=== PATIENT | female | born 1965 | race Caucasian/White ===

== ENCOUNTER 2024-08-26 14:27 | Inpatient (IN) | payer MEDICAID, OTHER ==
[~2024-08-26] VITALS: Ht 167.6 cm; Wt 113.6 kg
[~2024-08-26 14:27] MED LIST: ARIP2TAB PO; ASPI81CH59 PO; LIDO1.8P TOP; METO25TA93 PO; ROSU20TA14 PO; SERT-206 PO
--- NOTE | 2024-08-26 14:35 | ED.PDOC ---
HPI Comments 59 Y F, BIBA with PMHX of HTN, hypotension, [place] and SHX PTCA presents to the ED with CC of chest pain. Per EMS patient has been experiencing chest pain x3 days, with associated symptoms of epigastric pain and nausea. Patient states that nausea has been intermittent and has since subsided. Patient denies any tobacco usage, ETOH, and illicit drugs. Patient denies Patient denies fever, chills, diarrhea, or vomiting. z + Time Seen by MD: 14:30 Reviewed Notes: Nurses Notes, Medications, Allergies Allergies: Coded Allergies: NO KNOWN ALLERGIES (Unverified , 08/26/24) Information Source: Patient, Emergency Med Personnel Mode of Arrival: EMS Severity: Mild Timing: Days Duration: Since onset Prehospital treatment: 12 Lead EKG, Glass Bulb Machine Adjuster Location: Substernal Radiation: No Radiation Cardiac Risk Factors: HTN PE Risk Factors: None History of: [place] Associated Signs and Symptoms: SOB Past Medical History PAST MEDICAL HISTORY: HTN, Hypotension, [place] Surgical History: PTCA LEAD DEVELOPER History: Denies all LEAD DEVELOPER Hx Family History Family History: Unknown Social History Smoker: Non-Smoker Alcohol: Denies ETOH Use Drugs: Denies Drug Use Lives In: Home Constitutional: denies: chills, diaphoresis, fatigue, fever, malaise, sweats, weakness, others EENTM: denies: blurred vision, double vision, ear bleeding, ear discharge, ear drainage, ear pain, ear ringing, eye pain, eye redness, hearing loss, mouth pain, mouth swelling, nasal discharge, nose bleeding, nose congestion, nose pain, photophobia, tearing, throat pain, throat swelling, voice changes, others Respiratory: denies: cough, hemoptysis, orthopnea, SOB at rest, shortness of breath, SOB with excertion, stridor, wheezing, others Cardiovascular: reports: chest pain; denies: dizzy spells, diaphoresis, Dyspnea on exertion, edema, irregular heart beat, left arm pain, lightheadedness, palpitations, PND, syncope, others Gastrointestinal: reports: abdominal pain, nausea; denies: abdomen distended, blood streaked bowels, constipated, diarrhea, dysphagia, difficulty swallowing, hematemesis, melena, poor appetite, poor fluid intake, rectal bleeding, rectal pain, vomiting, others Genitourinary: denies: abnormal vagina bleeding, burning, dyspareunia, dysuria, flank pain, frequency, hematuria, incontinence, pain, , vagina discharge, urgency, others Neurological: denies: dizziness, fainting, headache, left sided numbness, left sided weakness, numbness, paresthesia, pre-existing deficit, right sided numbness, right sided weakness, seizure, speech problems, tingling, tremors, weakness, others Musculoskeletal: denies: back pain, gout, joint pain, joint swelling, muscle pain, muscle stiffness, neck pain, others Integumetry: denies: bruises, change in color, change in hair/nails, dryness, laceration, lesions, lumps, rash, wounds, others Allergic/Immunocompromised: denies: Difficulty Healing, Frequent Infections, Hives, Itching, others Hematologic/Lymphatic: denies: anemia, blood clots, easy bleeding, easy bruising, swollen glands, others Endocrine: denies: excessive hunger, excessive sweating, excessive thirst, excessive urination, flushing, intolerance to cold, intolerance to heat, unexplained weight gain, unexplained weight loss, others Psychiatric: denies: anxiety, bipolar disorder, depression, hopeless, panic disorder, schizophrenia, sleepless, suicidal, others All Other Systems: Reviewed and Negative Physical Exam General Appearance: Moderate Distress, Normal HEENT: Normal ENT Inspection, Pharynx Normal, TMs Normal Neck: Full Range of Motion, Non-Tender, Normal, Normal Inspection Respiratory: Chest Non-Tender, Lungs Clear, No Accessory Muscle Use, No Respiratory Distress, Normal Breath Sounds Cardiovascular: No Edema, No JVD, No Murmur, No Gallop, Normal Peripheral Pulses, Regular Rate/Rhythm Breast Exam: Deferred Gastrointestinal: No Organomegaly, Non Tender, No Pulsatile Mass, Normal Bowel Sounds, Soft Genitalia: Deferred Pelvic: Deferred Rectal: Deferred Extremities: No calf tenderness, Normal capillary refill, Normal inspection, Normal range of motion, Non-tender, No pedal edema Musculoskeletal : Apperance: Normal Neurologic: Alert, american board certified orthotist II-XII nml as Tested, No Motor Deficits, Normal Affect, Normal Mood, No Sensory Deficits Cerebellar Function: NOT DONE Reflexes: NOT DONE Skin: Dry, Normal Color, Warm Lymphatic: No Adenopathy Was a procedure done? Was a procedure done?: No CP Differential Dx Differential Diagnosis: A-fib, A-Flutter, Angina, Anxiety / Panic Attack, Atrial Dysrhythmia, Electrolyte Disorder, Hyperventilation, [place] Differential Diagnosis: Costochondritis X-Ray, Labs, Meds, VS Vital Signs Date Time Temp Pulse Resp B/P (MAP) Pulse Ox O2 Delivery O2 Flow Rate FiO2 08/26/24 16:02 100 08/26/24 14:30 98.7 89 14 119/71 (87) 94 08/26/24 14:28 101 Lab Test 08/26/24 14:40 Range/Units White Blood Count 8.0 4.4-10.8 10^3/uL Red Blood Count 5.25 H 4.0-5.20 10^6/uL Hemoglobin 17.0 H 12.2-16.2 g/dL Hematocrit 49.7 H 36.0-46.0 % Mean Corpuscular Volume 94.8 80.0-100.0 fL Mean Corpuscular Hemoglobin 32.4 H 28.0-32.0 pg Mean Corpuscular Hemoglobin Concent 34.1 32.0-36.0 g/dL Red Cell Distribution Width 12.7 11.8-14.3 % Platelet Count 220 140-450 10^3/uL Mean Platelet Volume 9.3 6.9-10.8 fL Neutrophils (%) (Auto) 72.1 37.0-80.0 % Lymphocytes (%) (Auto) 20.1 10.0-50.0 % Monocytes (%) (Auto) 6.7 0.0-12.0 % Eosinophils (%) (Auto) 0.6 0.0-7.0 % Basophils (%) (Auto) 0.5 0.0-2.0 % Neutrophils # (Auto) 5.8 1.6-8.6 10 ^3/uL Lymphocytes # (Auto) 1.6 0.4-5.4 10 ^3/uL Monocytes # (Auto) 0.5 0-1.3 10 ^3/uL Eosinophils # (Auto) 0.1 0-0.8 10 ^3/uL Basophils # (Auto) 0 0-0.2 10 ^3/uL Nucleated Red Blood Cells 0.2 % Sodium Level 142 136-145 mmol/L Potassium Level 4.3 3.5-5.1 mmol/L Chloride Level 105 98-107 mmol/L Carbon Dioxide Level 25 20-31 mmol/L Anion Gap 12 5-15 Blood Urea Nitrogen 13 9-23 mg/dL Creatinine 0.85 0.550-1.02 mg/dL Glomerular Filtration Rate Calc 78 >90 mL/min BUN/Creatinine Ratio 15.3 10.0-20.0 Serum Glucose 110 H 74-106 mg/dL Calcium Level 10.0 8.7-10.4 mg/dL Total Bilirubin 0.9 0.2-1.0 mg/dL Troponin I High Sensitivity < 3 L </=34 ng/L Lipase 31 12-53 U/L Patient alert. Complaining of abdominal pain. Vitals stable. Answering all questions. Cardiac marker within normal limits. WBC within normal limits. Hemoglobin elevated. Possible dehydration. Establish intravenous access. Was given fluids. Reviewed her previous history. EKG reviewed does not show any acute changes. Explained to the patient. Continue cardiac monitoring. HIDA scan. [place] [address] Ph: [phone] DIAGNOSTIC IMAGING Diagnostic Imaging Report : [id number] Signed PATIENT: Jackie Givens ACCT: [id number] UNIT: [id number] : 1965 LOC: ER ROOM / BED: / AGE / SEX: 59 / F ADM STATUS: REG ER SERVICE 1532 ORDERING PHYSICIAN: LEX BRAGA MD PROCEDURE(s): GBUS - GALLBLADDER REASON: stonevssludge ORDER NUMBER(s): [id number], ACCESSION NUMBER(s): [id number] ULTRASOUND ABDOMEN LIMITED INDICATION: stonevssludge TECHNIQUE: Multiple real-time sonographic images of the abdomen were obtained. COMPARISON: None FINDINGS: The visualized liver parenchyma appears echogenic. . The liver measures 16.7 cm. No discrete hepatic lesion or intrahepatic biliary ductal dilatation is identified. There are small mobile gallstones within the gallbladder. There is no significant gallbladder wall thickening or pericholecystic fluid. The common biliary duct measures 6 mm. The right kidney measures 11.0 cm length. No sonographic evidence of nephrolithiasis or hydronephrosis. Visualized portions of the pancreas appears within normal limits. IMPRESSION: 1. Hepatic steatosis. 2. Cholelithiasis. HS:Y ATED BY: BARRY ALLEN MD DICTATED DATE/TIME: 08/26/241652 SIGNED BY: BARRY ALLEN MD SIGNED DATE/TIME: 08/26/241652 CC: Time of 1ST Reevaluation: 15:30 Reevaluation 1ST: Unchanged Patient Education/Counseling: Diagnosis, Treatment Family Education/Counseling: No Family Present Departure 1 Departure Time of Disposition: 15:31 Impression: Primary Impression: Acute abdominal pain Disposition: ADMITTED INPATIENT Admit to: Med Surg Condition: Guarded Critical Care Note Critical Care Time?: No Stability Stability form required: No Heart Score Heart Score: Heart Score Response (Comments) Value History Slightly Suspicious 0 EKG Normal 0 Age 45-64 1 Risk Factors 1 or 2 risk factors 1 Troponin Normal limit 0 Total 2 I personally scribed for LEX BRAGA MD ([email or web address]) on 08/26/24 at 14:35. Electronically submitted by Pete Vail ([email or web address]). I personally scribed for LEX BRAGA MD ([email or web address]) on 08/26/24 at 14:57. Electronically submitted by Pete Vail ([email or web address]). I personally scribed for LEX BRAGA MD ([email or web address]) on 08/26/24 at 15:05. Electronically submitted by Pete Vail ([email or web address]). I personally scribed for LEX BRAGA MD ([email or web address]) on 08/26/24 at 15:07. Electronically submitted by Pete Vail ([email or web address]). I personally scribed for LEX BRAGA MD ([email or web address]) on 08/26/24 at 15:18. Electronically submitted by Pete Vail ([email or web address]). I personally scribed for LEX BRAGA MD ([email or web address]) on 08/26/24 at 17:00. Electronically submitted by Pete Vail ([email or web address]). LEX BRAGA MD Aug 26, 2024 14:35
[2024-08-26 15:06] LABS: Basophils # (auto) 0 10 ^3/uL (0-0.2); Basophils % (auto) 0.5 % (0.0-2.0); Eosinophils # (auto) 0.1 10 ^3/uL (0-0.8); Eosinophils % (auto) 0.6 % (0.0-7.0); Hematocrit 49.7 % (36.0-46.0); Lymphocytes # (auto) 1.6 10 ^3/uL (0.4-5.4); Lymphocytes % (auto) 20.1 % (10.0-50.0); Mean Corpuscular Hemoglobin 32.4 pg (28.0-32.0); Mean Corpuscular Hgb Conc. 34.1 g/dL (32.0-36.0); Mean Corpuscular Volume 94.8 fL (80.0-100.0); Monocytes # (auto) 0.5 10 ^3/uL (0-1.3); Monocytes % (auto) 6.7 % (0.0-12.0); Neutrophils # (auto) 5.8 10 ^3/uL (1.6-8.6); Neutrophils % (auto) 72.1 % (37.0-80.0); Nucleated Red Blood Cells % 0.2 %; Platelet Count (auto) 220 10^3/uL (140-450); Red Blood Cells 5.25 10^6/uL (4.0-5.20); Red Cell Distribution Width 12.7 % (11.8-14.3)
[2024-08-26 15:11] LABS: Chloride 105 mmol/L (98-107); Potassium 4.3 mmol/L (3.5-5.1); Sodium 142 mmol/L (136-145)
[2024-08-26 15:12] LABS: Anion Gap 12 (5-15); Carbon Dioxide 25 mmol/L (20-31)
[2024-08-26 15:17] LABS: BUN/Creatinine Ratio 15.3 (10.0-20.0); Blood Urea Nitrogen 13 mg/dL (9-23)
[2024-08-26 15:18] LABS: Glucose 110 mg/dL (74-106)
[2024-08-26 15:36] LABS: Bilirubin, Total 0.9 mg/dL (0.2-1.0)
--- NOTE | 2024-08-26 16:54 | DVH ---
ULTRASOUND ABDOMEN LIMITED INDICATION: stonevssludge TECHNIQUE: Multiple real-time sonographic images of the abdomen were obtained. COMPARISON: None FINDINGS: The visualized liver parenchyma appears echogenic. . The liver measures 16.7 cm. No discrete hep atic lesion or intrahepatic biliary ductal dilatation is identified. There are small mobile gallstones within the gallbladder. There is no significant gallbladder wall th ickening or pericholecystic fluid. The common biliary duct measures 6 mm. The right kidney measures 11.0 cm length. No sonographic evidence of nephrolithiasis or hydronephro sis. Visualized portions of the pancreas appears within normal limits. IMPRESSION: 1. Hepatic steatosis. 2. Cholelithiasis. HS:Y
[2024-08-26] MEDS ORDERED: NITROGLYCERIN 0.4 MG SL TAB SL PRN (18:30)
[2024-08-26] MEDS ORDERED: MAALOX PLUS or MAALOX 30 ML PO PRN (18:30)
[2024-08-26] MEDS ORDERED: TEMAZEPAM 15 MG CAP PO PRN (18:30)
[2024-08-26] MEDS ORDERED: MORPHINE SULFATE INJ 2 MG/ml SYRG IV PRN ×2 (18:30)
[2024-08-26] MEDS ORDERED: LORazepam 0.5 MG TAB PO PRN (18:30)
[2024-08-26] MEDS ORDERED: HYDROcodone-ACET 5/325MG TAB PO PRN (18:30)
[2024-08-26] MEDS ORDERED: DOCUSATE SOD 100 MG CAP PO PRN (18:30)
--- NOTE | 2024-08-26 18:38 | DVHHP2 ---
History of Present Illness Reason for Visit: Chest pain History of Present Illness 59-year-old morbidly obese patient with a past medical history hypertension hypotension VT and status post PCTA comes to the ED with complaints of chest pain patient states he has been having chest pain for the past 3 days associated with nausea patient was evaluated in the ED and recommended that the patient be admitted for further evaluation and management and follow with the acute chest pain protocol patient has also stated to have right upper quadrant pain patient completed an ultrasound in the ED Cardiovascular: CAD, HTN Review of Systems Constitutional: Yes: Weakness; No: Fever, Chills, Sweats, Malaise, Other Eyes: No: Pain, Vision change, Conjunctivae inflammation, Eyelid inflammation, Other, Redness ENT: No: Ear pain, Ear discharge, Nose pain, Nose discharge, Nose congestion, Mouth pain, Mouth swelling, Throat pain, Throat swelling, Other Respiratory: No: Cough, Dry, Shortness of breath, SOB with excertion, Wheezing, Hemoptysis, Pleuritic Pain, Sputum, Wheezing, Other Cardiovascular: Chest Pain, Palpitations; No: Orthopnea, Paroxysmal Noc. Dyspnea, Edema, Lt Headedness, Other Gastrointestinal: Nausea, Vomiting, Abdominal Pain; No: Diarrhea, Constipation, Melena, Hematochezia, Other Genitourinary: No Dysuria, No Frequency, No Incontinence, No Hematuria, No Retention, No Other Musculoskeletal: No: other, neck pain, shoulder pain, arm pain, back pain, hand pain, leg pain, foot pain Skin: No: Rash, Lesions, Jaundice, Bruising, Other Neurological: No: Weakness, Numbness, Incoordination, Change in speech, Confusion, Seizures, Other Allergies: Coded Allergies: NO KNOWN ALLERGIES (Unverified , 08/26/24) Exam Vital Signs Vital Signs Date Time Temp Pulse Resp B/P (MAP) Pulse Ox O2 Delivery O2 Flow Rate FiO2 08/26/24 16:02 100 08/26/24 14:30 98.7 14 119/71 (87) 94 General Appearance: Alert, Oriented X3, Cooperative, mild distress HEENT: Atraumatic, PERRLA, EOMI Respiratory: Clear to auscultation, Normal air movement Cardiovascular: Regular rate, Normal S1, Normal S2 Abdominal: Normal bowel sounds, No tenderness Extremities: No clubbing, No cyanosis, No edema Skin: No rashes, No breakdown, No significant lesion Neuro: Normal gait, Normal speech Psych/Mental Status: Mood NL Labs/Xrays Labs Test 08/26/24 14:40 Range/Units White Blood Count 8.0 4.4-10.8 10^3/uL Red Blood Count 5.25 H 4.0-5.20 10^6/uL Hemoglobin 17.0 H 12.2-16.2 g/dL Hematocrit 49.7 H 36.0-46.0 % Mean Corpuscular Volume 94.8 80.0-100.0 fL Mean Corpuscular Hemoglobin 32.4 H 28.0-32.0 pg Mean Corpuscular Hemoglobin Concent 34.1 32.0-36.0 g/dL Red Cell Distribution Width 12.7 11.8-14.3 % Platelet Count 220 140-450 10^3/uL Mean Platelet Volume 9.3 6.9-10.8 fL Neutrophils (%) (Auto) 72.1 37.0-80.0 % Lymphocytes (%) (Auto) 20.1 10.0-50.0 % Monocytes (%) (Auto) 6.7 0.0-12.0 % Eosinophils (%) (Auto) 0.6 0.0-7.0 % Basophils (%) (Auto) 0.5 0.0-2.0 % Neutrophils # (Auto) 5.8 1.6-8.6 10 ^3/uL Lymphocytes # (Auto) 1.6 0.4-5.4 10 ^3/uL Monocytes # (Auto) 0.5 0-1.3 10 ^3/uL Eosinophils # (Auto) 0.1 0-0.8 10 ^3/uL Basophils # (Auto) 0 0-0.2 10 ^3/uL Nucleated Red Blood Cells 0.2 % Sodium Level 142 136-145 mmol/L Potassium Level 4.3 3.5-5.1 mmol/L Chloride Level 105 98-107 mmol/L Carbon Dioxide Level 25 20-31 mmol/L Anion Gap 12 5-15 Blood Urea Nitrogen 13 9-23 mg/dL Creatinine 0.85 0.550-1.02 mg/dL Glomerular Filtration Rate Calc 78 >90 mL/min BUN/Creatinine Ratio 15.3 10.0-20.0 Serum Glucose 110 H 74-106 mg/dL Calcium Level 10.0 8.7-10.4 mg/dL Total Bilirubin 0.9 0.2-1.0 mg/dL Troponin I High Sensitivity < 3 L </=34 ng/L Lipase 31 12-53 U/L Assessment/Plan Assessment/Plan Admit to [facility] Stated chest pain suspected related to right upper quadrant pain Right upper quadrant plain suspected due to cholelithiasis Ultrasound was completed in the ED showing hepatic steatosis as well as cholelithiasis We will continue to trend tropes so far currently negative P.r.n. medication for pain management Surgical evaluation for possible coli Due to cardiac history we will continue with chest pain protocol IV hydration IV antibiotics for abdominal infection coverage Plan discussed with: Patient My Orders Orders - BELLO FONTENOT MD Procedure Category Date Status Time Admit ADMIT 08/26/24 Transmitted 18:23 Code Status CODE 08/26/24 Transmitted 18:23 Vital Signs [facility] 08/26/24 Transmitted 18:23 Review Orders With [facility] 08/26/24 Transmitted Adm. 18:23 Regular Diet DIET 08/26/24 Transmitted Dinner Sodium Chloride 0.9% [facility] 08/26/24 Transmitted 18:30 Lorazepam Tablet [facility] 08/26/24 Transmitted (Ativan Tablet) 18:30 Alum & Mag PHA 08/26/24 Transmitted Hydrox-Simethicone 18:30 Docusate Sodium [facility] 08/26/24 Transmitted Capsule (Colace 18:30 Acetaminophen Tablet [facility] 08/26/24 Transmitted (Tylenol Tablet) 18:30 Temazepam (Restoril) PHA 08/26/24 Transmitted 18:30 Notify Of Changes [facility] 08/26/24 Transmitted From Base 18:23 Advance Directive [facility] 08/26/24 Transmitted 18:23 Basic Metabolic Panel LAB 08/27/24 Verified 04:00 Urinalysis LAB 08/26/24 Transmitted 18:23 Complete Blood Count LAB 08/27/24 Verified 04:00 Patient Condition ORDERS 08/26/24 Transmitted 18:[address] [facility] 08/26/24 Transmitted 18:23 Hydrocodone-Acet [facility] 08/26/24 Transmitted 5/325mg Tab ([place] 18:30 Ondansetron Hcl [facility] 08/26/24 Transmitted (Zofran) 18:30 Morphine 2mg Iv Q4hprn PHA 08/26/24 Transmitted 18:30 Nitroglycerin PHA 08/26/24 Transmitted Sublingual (Ntrostat 18:30 Morphine Sulfate PHA 08/26/24 Transmitted Injection 18:30 Stat Ekg For Chest [facility] 08/26/24 Transmitted Pain 18:23 Notify Md Of Changes [facility] 08/26/24 Transmitted From Base 18:23 Farm Equipment Service Technician For [facility] 08/26/24 Transmitted 24 Hours 18:23 Emergency Dysrhythmia [facility] 08/26/24 Transmitted Protocol 18:23 Rhythm Strips Once [facility] 08/26/24 Transmitted Every Shift 18:23 Oxygen By Nasal RT 08/26/24 Transmitted Cannula 18:23 Problem List: (1) Acute abdominal pain Date of Service: Aug 26, 2024 Billing Provider: BELLO FONTENOT MD Common Visit Codes: [id number] INP/OBS CARE (HIGH) BELLO FONTENOT MD Aug 26, 2024 18:38
[2024-08-27] VITALS (10 sets, daily range): BP systolic 99–117; BP diastolic 60–77; PULSE 64–98; RESP 16–18; TEMP 97.5–98.3; O2SAT 92–99
[2024-08-27 07:02] LABS: Basophils # (auto) 0 10 ^3/uL (0-0.2); Basophils % (auto) 0.5 % (0.0-2.0); Eosinophils # (auto) 0.1 10 ^3/uL (0-0.8); Hematocrit 46.8 % (36.0-46.0); Hemoglobin 16.3 g/dL (12.2-16.2); Lymphocytes # (auto) 1.6 10 ^3/uL (0.4-5.4); Lymphocytes % (auto) 20.4 % (10.0-50.0); Mean Corpuscular Hemoglobin 32.2 pg (28.0-32.0); Mean Corpuscular Hgb Conc. 34.8 g/dL (32.0-36.0); Mean Corpuscular Volume 92.5 fL (80.0-100.0); Monocytes # (auto) 0.7 10 ^3/uL (0-1.3); Monocytes % (auto) 8.5 % (0.0-12.0); Neutrophils # (auto) 5.5 10 ^3/uL (1.6-8.6); Neutrophils % (auto) 69.6 % (37.0-80.0); Nucleated Red Blood Cells % 0.1 %; Platelet Count (auto) 219 10^3/uL (140-450); Red Blood Cells 5.05 10^6/uL (4.0-5.20); Red Cell Distribution Width 12.8 % (11.8-14.3); White Blood Cell 7.8 10^3/uL (4.4-10.8)
[2024-08-27 07:22] LABS: Anion Gap 6 (5-15); Calcium 9.8 mg/dL (8.7-10.4); Carbon Dioxide 27 mmol/L (20-31); Potassium 3.7 mmol/L (3.5-5.1); Sodium 141 mmol/L (136-145)
[2024-08-27 07:27] LABS: BUN/Creatinine Ratio 21.6 (10.0-20.0); Blood Urea Nitrogen 19 mg/dL (9-23); Glucose 104 mg/dL (74-106)
--- NOTE | 2024-08-27 07:31 | ECG ---
[facility] Test Date: 2024-08-26 Test Time: 16:02:48 Pat Name: MILTON JIMENEZ Department: ER Room: [facility] Gender: F Felt Carbonizer: JENNIFER : 1965 Requested By: LEX BRAGA Order Number: [id number] Reading MD: Oli Thompson Measurements Intervals [place] Rate: 100 P: 70 MO: 151 QRS: 22 QRSD: 92 T: 74 QT: 341 QTc: 440 Interpretive Statements Sinus tachycardia Abnormal R-wave progression, early transition Minimal ST depression, anterolateral leads Electronically Signed On 08-29-2024 12:39:35 PST by Oli Thompson Please click the below link to view image of tracing.
[2024-08-27 07:32] LABS: Chloride 108 mmol/L (98-107)
[2024-08-27] MEDS: SODIUM CHLORIDE 0.9% 1,000 ML IV SCH (11:10)
[2024-08-27] MEDS: ONDANSETRON HCL 4 MG/2 ML VIAL IV PRN (11:58)
[2024-08-27] MEDS: ACETAMINOPHEN 325 MG TAB PO PRN (11:59)
--- NOTE | 2024-08-27 15:07 | DVHPN2 ---
Assessment/Plan Assessment/Plan Progress note Subjective 1-year-old female admitted for chest pain, found to have cholelithiasis and right upper quadrant pain possibly related. Objective Physical exam Alert, oriented x3 PERRLA Obese Clear breath sounds bilaterally S1-S2 regular rate and rhythm no murmur Abdomen distended, tender to palpation, no rebound no guarding Moving all four extremities No lower extremity edema Lab Troponin negative Lipase negative Hemoglobin 17 EKG NSR Imaging Right upper quadrant ultrasound with cholelithiasis Assessment and plan Abdominal pain Chest pain likely referred from above Cholelithiasis without cholecystitis Abdominal ultrasound UDS, UA Zofran Advance diet as tolerated IV fluid No antibiotic at this moment Replete electrolytes Diet clear liquid DVT prophylaxis ambulatory Plan discussed with: Patient My Orders Orders - PATTY TABARES MD Procedure Category Date Status Time Initiate Vte MECHE 08/27/24 In Process Prophylaxis 13:48 Urinalysis LAB 08/27/24 Logged 15:02 Drug Screen LAB 08/27/24 Logged 15:02 Sertraline Hcl PHA 08/27/24 Transmitted (Zoloft) 15:15 Sertraline Hcl PHA 08/28/24 Transmitted (Zoloft) 10:00 Aspirin Tablet PHA 08/27/24 Transmitted 15:15 Aspirin Tablet PHA 08/28/24 Transmitted 10:00 Alum & Mag PHA 08/27/24 Transmitted Hydrox-Simethicone 22:00 Date of Service: Aug 27, 2024 Billing Provider: PATTY TABARES MD Common Visit Codes: [id number] INP/OBS CARE(HIGH) PATTY TABARES MD Aug 27, 2024 15:07
--- NOTE | 2024-08-27 15:54 | DVH ---
ULTRASOUND OF THE ABDOMINAL AORTA CLINICAL HISTORY: abdominal pain TECHNIQUE: Transabdominal ultrasound of the abdominal aorta was performed. COMPARISON: None FINDINGS: The proximal abdominal aorta measures 3.0 cm . The mid abdominal aorta measures 0.1 cm and the dista l aorta measures 1.5 cm. The right and left common iliac arteries are not seen on the current ultraso und study. IMPRESSION: 1. There is no sonographic evidence of abdominal aortic aneurysm. HS:Y
--- NOTE | 2024-08-27 16:01 | DVH ---
RENAL ULTRASOUND CLINICAL HISTORY: kidney, bladder, ascites and AA TECHNIQUE: Multiple ultrasound images of the kidneys and bladder were obtained. COMPARISON: None FINDINGS: The right kidney measures 11.7 cm in length. The left kidney measures 11.8 cm. Both kidneys appear ec hogenic compatible with medical renal disease. There is cortical thinning in the right kidney. There is a 7 mm calculus in the midpole of the right kidney. There is no obvious left renal calculus. The re is no hydronephrosis. Bladder appears within normal limits with prevoid volume measuring 98 cc. IMPRESSION: 1. The kidneys appear echogenic compatible with medical renal disease. There is cortical thinning in the right kidney. 2. 7 mm nonobstructive right midpole renal calculus. HS:Y
[2024-08-27] MEDS: SERTRALINE HCL 50 MG TAB PO ONE (17:01)
[2024-08-27] MEDS: ASPirin 81 mg TAB PO ONE (17:02)
[2024-08-27] MEDS: MAALOX PLUS or MAALOX 30 ML PO SCH (21:45)
[2024-08-28] VITALS (7 sets, daily range): BP systolic 100–121; BP diastolic 50–70; PULSE 58–80; RESP 17–21; TEMP 97.7–98.8; O2SAT 92–100
[2024-08-28 06:44] LABS: Alanine Aminotransferase 23 U/L (7-40); Alkaline Phosphatase 88 U/L (46-116); Anion Gap 9 (5-15); BUN/Creatinine Ratio 24.7 (10.0-20.0); Blood Urea Nitrogen 20 mg/dL (9-23); Calcium 9.4 mg/dL (8.7-10.4); Carbon Dioxide 27 mmol/L (20-31); Glucose 97 mg/dL (74-106); Potassium 4.1 mmol/L (3.5-5.1); Sodium 144 mmol/L (136-145)
[2024-08-28 06:45] LABS: Aspartate Aminotransferase 14 U/L (13-40); Bilirubin, Total 0.9 mg/dL (0.2-1.0); Total Protein 6.5 g/dL (5.7-8.2)
[2024-08-28 06:49] LABS: Chloride 108 mmol/L (98-107)
[2024-08-28 06:52] LABS: Basophils # (auto) 0 10 ^3/uL (0-0.2); Basophils % (auto) 0.6 % (0.0-2.0); Eosinophils # (auto) 0.2 10 ^3/uL (0-0.8); Eosinophils % (auto) 3.2 % (0.0-7.0); Hemoglobin 14.9 g/dL (12.2-16.2); Lymphocytes # (auto) 1.5 10 ^3/uL (0.4-5.4); Lymphocytes % (auto) 25.2 % (10.0-50.0); Mean Corpuscular Hemoglobin 32.4 pg (28.0-32.0); Mean Corpuscular Hgb Conc. 34.6 g/dL (32.0-36.0); Mean Corpuscular Volume 93.6 fL (80.0-100.0); Monocytes # (auto) 0.6 10 ^3/uL (0-1.3); Monocytes % (auto) 9.5 % (0.0-12.0); Neutrophils # (auto) 3.8 10 ^3/uL (1.6-8.6); Neutrophils % (auto) 61.5 % (37.0-80.0); Nucleated Red Blood Cells % 0.1 %; Platelet Count (auto) 198 10^3/uL (140-450); Red Cell Distribution Width 12.9 % (11.8-14.3); White Blood Cell 6.1 10^3/uL (4.4-10.8)
[2024-08-28] MEDS: ASPirin 81 mg TAB PO SCH (09:44)
[2024-08-28] MEDS: POLYETHYLENE GLYCOL 17 GM PWDR PO SCH (09:44)
[2024-08-28] MEDS: SERTRALINE HCL 50 MG TAB PO SCH (09:45)
--- NOTE | 2024-08-28 14:22 | DVHPN2 ---
Assessment/Plan Assessment/Plan Progress note Subjective 1-year-old female admitted for chest pain, found to have cholelithiasis and right upper quadrant pain possibly related. Patient seen by me today during rounds Still have abdominal pain, low grade. persistent. No UA, informed patient will need urine sample to rule out UTI. Objective Physical exam Alert, oriented x3 PERRLA Obese Clear breath sounds bilaterally S1-S2 regular rate and rhythm no murmur Abdomen distended, tender to palpation, no rebound no guarding Moving all four extremities No lower extremity edema Lab Troponin negative Lipase negative Hemoglobin 17 EKG NSR Imaging Right upper quadrant ultrasound with cholelithiasis Nonobs nephrolithiasis No AAA, ascites Assessment and plan Abdominal pain Chest pain likely referred from above Cholelithiasis without cholecystitis have not ruled out UTI UDS, UA Zofran pepcid, maalox Advance diet as tolerated IV fluid No antibiotic at this moment Replete electrolytes Diet clear liquid DVT prophylaxis ambulatory Plan discussed with: Patient My Orders Orders - PATTY TABARES MD Procedure Category Date Status Time Urinalysis LAB 08/27/24 Logged 15:02 Drug Screen LAB 08/27/24 Logged 15:02 Sertraline Hcl PHA 08/28/24 In Process (Zoloft) 10:00 Aspirin Tablet PHA 08/28/24 In Process 10:00 Alum & Mag PHA 08/27/24 In Process Hydrox-Simethicone 22:00 Polyethylene Glycol PHA 08/28/24 In Process 17g Powder (Miralax 10:00 Kidney US 08/27/24 Resulted 15:18 AORTA US 08/27/24 Resulted 15:11 Clear Liq Diet DIET 08/28/24 Transmitted Breakfast Date of Service: Aug 28, 2024 Billing Provider: PATTY TABARES MD Common Visit Codes: [id number] INP/OBS CARE(HIGH) PATTY TABARES MD Aug 28, 2024 14:22
[2024-08-28] MEDS: FAMOTIDINE 20 MG TAB PO SCH (22:25)
[2024-08-29 01:00] VITALS: BP 105/60; PULSE 63; RESP 18; TEMP 97.9; O2SAT 94
[2024-08-29 05:00] VITALS: BP 99/51; PULSE 60; RESP 20; TEMP 97.6; O2SAT 95
--- NOTE | 2024-08-29 08:49 | ECG ---
[facility] Test Date: 2024-08-26 Test Time: 14:28:31 Pat Name: MILTON JIMENEZ Department: ER Room: [facility] A Gender: F Is/It Project Manager: JENNIFER : 1965 Requested By: LEX BRAGA Order Number: [id number] Reading MD: Oli Thompson Measurements Intervals [place] Rate: 101 P: 64 HI: 155 QRS: -5 QRSD: 94 T: 49 QT: 361 QTc: 468 Interpretive Statements Sinus tachycardia Low voltage, precordial leads Anteroseptal infarct, old Electronically Signed On 08-29-2024 12:39:08 PST by Oli Thompson Please click the below link to view image of tracing.
[2024-08-29 09:00] VITALS: BP 126/76; PULSE 61; RESP 20; TEMP 97.9; O2SAT 94
[2024-08-29 09:23] LABS: Amphetamine Screen, Urine Neg (NEGATIVE); Barbiturate Scree,Urine Neg (NEGATIVE); Benzodiazephine Screen, Urine Neg (NEGATIVE); Cocaine Screen, Urine Neg (NEGATIVE)
[2024-08-29 09:24] LABS: Cannabinoid Screen, Urine Neg (NEGATIVE); Opiate Scree,Urine Neg (NEGATIVE); Phencyclidine Screen, Urine Neg (NEGATIVE)
[2024-08-29 09:27] LABS: Urine Bacteria FEW /hpf (None Seen); Urine Blood TRACE /uL (Negative); Urine Clarity Clear (Clear); Urine Color Yellow (Yellow); Urine Protein, UAD Negative (Negative); Urine Specific Gravity 1.017 (1.001-1.035); Urine Squamous Epithelial Cell FEW /hpf (<5); Urine Urobilinogen Normal (Negative); Urine WBC 6 /hpf (0 - 5); Urine pH 5.5 (5.0-9.0)
[2024-08-29] MEDS: ONDANSETRON HCL 4 MG/2 ML VIAL IV PRN (09:59)
[2024-08-29] MEDS: IOHEXOL 300 MG/ML 100ML BOTTLE IJ ONE (10:40)
--- NOTE | 2024-08-29 11:18 | DVH ---
Exam: CT CT AB PEL WITH IV CON ONLY History: PAIN TECHNIQUE: A digital commutator tester image was obtained. During the uneventful, intravenous administration of c ontrast material, multislice data acquisition was obtained through the abdomen and pelvis. The data s et was subsequently reconstructed into axial images. Images were reviewed on a work station using a c ombination of axial and multiplanar using a variety of window levels and settings. 100 cc of Omnipaqu e 300 contrast was injected intravenously. All CT scans at this medical facility are performed using dose modulation techniques as appropriate t o a performed exam including the following:Automated exposure control was utilized; adjustment of the MA and/or KV according to patient size; and use of iterative reconstruction technique. Radiation Dose Information: CT Dose: CTDI volume is 24.88 mGy. Dose-length product is 1406.28 mGy*cm Comparison: None FINDINGS: Liver demonstrates diffusely decreased attenuation consistent with hepatic steatosis . There is no s uspicious appearing hepatic lesion. There is a 1.3 cm right midpole renal cyst . There is no evidence of nephrolithiasis or hydronephros is . The gallbladder, pancreas, adrenal glands, and spleen appear within normal limits. There is no evidence of abdominal lymphadenopathy. There is no free fluid or free air. The stomach grossly appears unremarkable. The small and large bowel loops demonstrate normal caliber and appear within normal limits.. The abdominal aorta and IVC appear within normal limits. The bladder appears within normal limits the degree of distention. Uterus appears bulky and mildly h eterogeneous which May relate to fibroid changes. There is no evidence of a pelvic mass or lymphadeno yaw. There is no free fluid collection. Lung bases are clear. There is no acute osseous abnormality. IMPRESSION: 1. There is no acute process in the abdomen and pelvis.. 2. Hepatic steatosis. 3. Bulky and mildly heterogeneous uterus May relate to fibroid changes. 4. 1.3 cm right midpole renal cyst. HS:Y
[2024-08-29 13:00] VITALS: BP 120/67; PULSE 69; RESP 20; TEMP 97.9; O2SAT 96
[2024-08-29 17:00] VITALS: BP 125/71; PULSE 71; RESP 18; TEMP 97.6; O2SAT 98
[2024-08-29 21:00] VITALS: BP 101/50; PULSE 69; RESP 20; TEMP 98.2; O2SAT 95
[2024-08-29] MEDS: METOCLOPRAMIDE HCL 5MG/ml INJ 2ml VIAL IV SCH (22:00)
[2024-08-30 01:00] VITALS: BP 102/59; PULSE 80; RESP 18; TEMP 97.9; O2SAT 96
[2024-08-30] MEDS: GASTROGRAFIN 120 ML SOL ONE (08:49)
[2024-08-30 09:00] VITALS: BP 100/53; PULSE 60; RESP 17; TEMP 97.5; O2SAT 96
--- NOTE | 2024-08-30 11:01 | DVH ---
Procedure: XY SMALL BOWEL SERIES-W GASTROGRA Reason for study/Clinical History: R/O GASTROPARSIS Comparison Study: None available at time of dictation. Technique: Single contrast small bowel series performed. FINDINGS/IMPRESSION: Initial ncr operator view of the abdomen and pelvis appears demonstrates no acute process. Contrast is identified within the colon by 45 minutes. This represents a normal small bowel transit time.
[2024-08-30 13:00] VITALS: BP 116/73; PULSE 75; RESP 20; TEMP 97.8; O2SAT 91
--- NOTE | 2024-08-30 13:55 | DVHPN2 ---
Assessment/Plan Assessment/Plan Progress note Subjective 1-year-old female admitted for chest pain, found to have cholelithiasis and right upper quadrant pain possibly related. Patient seen by me today during rounds switched to reglan, now tolerating oral, will advance diet Objective Physical exam Alert, oriented x3 PERRLA Obese Clear breath sounds bilaterally S1-S2 regular rate and rhythm no murmur Abdomen distended, tender to palpation, no rebound no guarding Moving all four extremities No lower extremity edema Lab Troponin negative Lipase negative Hemoglobin 17 EKG NSR Imaging Right upper quadrant ultrasound with cholelithiasis Nonobs nephrolithiasis No AAA, ascites Assessment and plan Abdominal pain Chest pain likely referred from above Cholelithiasis without cholecystitis have not ruled out UTI UDS, UA Zofran pepcid, maalox Advance diet as tolerated IV fluid No antibiotic at this moment switched zofran to reglan Replete electrolytes Diet soft DVT prophylaxis ambulatory Plan discussed with: Patient My Orders Orders - PATTY TABARES MD Procedure Category Date Status Time Metoclopramide PHA 08/29/24 In Process Injection (Reglan 22:00 Small Bowel Series-W XY 08/30/24 Resulted Gastrogra 08:52 Date of Service: Aug 30, 2024 Billing Provider: PATTY TABARES MD Common Visit Codes: [id number] INP/OBS CARE(HIGH) PATTY TABARES MD Aug 30, 2024 13:55
[2024-08-30 17:00] VITALS: BP 122/66; PULSE 58; RESP 18; TEMP 97.6; O2SAT 93
[2024-08-30 21:00] VITALS: BP 118/62; PULSE 59; RESP 16; TEMP 98; O2SAT 92
[2024-08-31] VITALS (8 sets, daily range): BP systolic 110–135; BP diastolic 55–86; PULSE 50–86; RESP 16–19; TEMP 97.4–98; O2SAT 91–96
--- NOTE | 2024-08-31 15:21 | DVHPN2 ---
Assessment/Plan Assessment/Plan Progress note Subjective 1-year-old female admitted for chest pain, found to have cholelithiasis and right upper quadrant pain possibly related. Patient seen by me today during rounds again complaining of not tolerating oral diet, dysphagia. will consult GI for possible scope Objective Physical exam Alert, oriented x3 PERRLA Obese Clear breath sounds bilaterally S1-S2 regular rate and rhythm no murmur Abdomen distended, tender to palpation, no rebound no guarding Moving all four extremities No lower extremity edema Lab Troponin negative Lipase negative Hemoglobin 17 EKG NSR Imaging Right upper quadrant ultrasound with cholelithiasis Nonobs nephrolithiasis No AAA, ascites Assessment and plan Abdominal pain Chest pain likely referred from above Cholelithiasis without cholecystitis have not ruled out UTI UDS, UA Zofran pepcid, maalox Advance diet as tolerated IV fluid No antibiotic at this moment switched zofran to reglan Replete electrolytes Diet soft DVT prophylaxis ambulatory Plan discussed with: Patient My Orders Orders - PATTY TABARES MD Procedure Category Date Status Time Dietary NOTICE 08/30/24 Transmitted Recommendations 15:43 * [facility] Manager Of Health CONS 08/31/24 Verified 15:19 Date of Service: Aug 31, 2024 Billing Provider: PATTY TABARES MD Common Visit Codes: [id number] INP/OBS CARE(HIGH) PATTY TABARES MD Aug 31, 2024 15:21
[2024-09-01 05:00] VITALS: BP 141/84; PULSE 52; RESP 19; TEMP 97.5; O2SAT 94
[2024-09-01 09:00] VITALS: BP 124/85; PULSE 63; RESP 17; TEMP 97.5; O2SAT 90
[2024-09-01 13:00] VITALS: BP 147/76; PULSE 59; RESP 20; TEMP 97.6; O2SAT 93
[2024-09-01 17:00] VITALS: BP 104/57; PULSE 64; RESP 16; TEMP 92.3; O2SAT 95
--- NOTE | 2024-09-01 19:41 | DVHINCON2 ---
Date of service: Sep 01, [address] Stephany Dean Reason for Consultation Atypical chest pain and dysphagia like symptoms History of Present Illness 59-year-old morbidly obese patient with a past medical history hypertension CT and status post PCTA comes to the ED with complaints of chest pain patient states he has been having chest pain for the past 3 days associated with nausea patient was evaluated in the ED and recommended that the patient be admitted for further evaluation and management and follow with the acute chest pain protocol patient has also stated to have right upper quadrant pain patient completed an ultrasound which was negative I was asked to consult on this patient today for possible endoscopy as she is complaining of some dysphagia like symptoms and she is suspected to have atypical chest pain possibly related to GERD Past Medical History Cardiovascular: CAD, HTN Morbid obesity Past Surgical History PTCA Hernia repair Thyroid mass Back Family History: FH: CT (myocardial infarction) G8 FATHER, Allergies: Coded Allergies: NO KNOWN ALLERGIES (Unverified , 08/26/24) Home Meds Reported Medications Lidocaine (Ztlido) 1.8 % Pad, 1 PAD TOP DAILY for 30 Days, #30 08/27/24 Rosuvastatin Calcium (Crestor) 20 Mg Tab, 1 TAB PO DAILY for 30 Days, #30 08/27/24 Aspirin (Aspirin Low Dose) 81 Mg Chw, 1 TAB PO DAILY for 30 Days, #30 08/27/24 Aripiprazole (Abilify) 2 Mg Tab, 1 TAB PO DAILY for 30 Days, #30 08/27/24 Sertraline Hcl (Sertraline Hcl) 50 Mg Tab, 1 TAB PO DAILY for 30 Days, #30 08/27/24 Metoprolol Succinate (Metoprolol Succinate Er) 25 Mg Tab, 1 TAB PO DAILY for 30 Days, #30 08/27/24 Vital Signs Vital Signs Date Time Temp Pulse Resp B/P (MAP) Pulse Ox O2 Delivery O2 Flow Rate FiO2 09/01/24 17:00 92.3 64 16 104/57 (73) 95 92.3 09/01/24 08:30 Room Air* 0 21 Physical Exam Alert, oriented x3 Obese PERRLA EOMI intact Clear breath sounds bilaterally S1-S2 regular rate and rhythm no murmur Abdomen distended, tender to palpation, no rebound no guarding Moving all four extremities No lower extremity edema Labs/Diagnostic Data Labs Test 08/29/24 08:38 08/28/24 05:47 08/27/24 06:34 08/26/24 14:40 Range/Units Urine Color Yellow Yellow Urine Clarity Clear Clear Urine pH 5.5 5.0-9.0 Urine Specific [place] 1.017 1.001-1.035 Urine Protein Negative Negative Urine Ketones 1+ H Negative Urine Blood Trace H Negative /uL Urine Nitrite Negative Negative Urine Bilirubin Negative Negative Urine Urobilinogen Normal Negative mg/dL Urine Leukocyte Esterase 1+ Negative /uL Urine RBC 1 0 - 4 /hpf Urine WBC 6 0 - 5 /hpf Urine Squamous Epithelial Cells Few <5 /hpf Urine Bacteria Few H None Seen /hpf Urine Glucose Normal Normal mg/dL Urine Opiates Screen Neg NEGATIVE Urine Fentanyl Screen Neg NEGATIVE Urine Barbiturates Screen Neg NEGATIVE Urine Phencyclidine Screen Neg NEGATIVE Urine Amphetamines Screen Neg NEGATIVE Urine Benzodiazepines Screen Neg NEGATIVE Urine Cocaine Screen Neg NEGATIVE Urine Cannabinoids Screen Neg NEGATIVE White Blood Count 6.1 4.4-10.8 10^3/uL Red Blood Count 4.60 4.0-5.20 10^6/uL Hemoglobin 14.9 12.2-16.2 g/dL Hematocrit 43.0 36.0-46.0 % Mean Corpuscular Volume 93.6 80.0-100.0 fL Mean Corpuscular Hemoglobin 32.4 H 28.0-32.0 pg Mean Corpuscular Hemoglobin Concent 34.6 32.0-36.0 g/dL Red Cell Distribution Width 12.9 11.8-14.3 % Platelet Count 198 140-450 10^3/uL Mean Platelet Volume 9.6 6.9-10.8 fL Neutrophils (%) (Auto) 61.5 37.0-80.0 % Lymphocytes (%) (Auto) 25.2 10.0-50.0 % Monocytes (%) (Auto) 9.5 0.0-12.0 % Eosinophils (%) (Auto) 3.2 0.0-7.0 % Basophils (%) (Auto) 0.6 0.0-2.0 % Neutrophils # (Auto) 3.8 1.6-8.6 10 ^3/uL Lymphocytes # (Auto) 1.5 0.4-5.4 10 ^3/uL Monocytes # (Auto) 0.6 0-1.3 10 ^3/uL Eosinophils # (Auto) 0.2 0-0.8 10 ^3/uL Basophils # (Auto) 0 0-0.2 10 ^3/uL Nucleated Red Blood Cells 0.1 % Sodium Level 144 136-145 mmol/L Potassium Level 4.1 3.5-5.1 mmol/L Chloride Level 108 H 98-107 mmol/L Carbon Dioxide Level 27 20-31 mmol/L Anion Gap 9 5-15 Blood Urea Nitrogen 20 9-23 mg/dL Creatinine 0.81 0.550-1.02 mg/dL Glomerular Filtration Rate Calc 83 >90 mL/min BUN/Creatinine Ratio 24.7 H 10.0-20.0 Serum Glucose 97 74-106 mg/dL Calcium Level 9.4 8.7-10.4 mg/dL Total Bilirubin 0.9 0.2-1.0 mg/dL Aspartate Amino Transferase (AST) 14 13-40 U/L Alanine Aminotransferase (ALT) 23 7-40 U/L Alkaline Phosphatase 88 46-116 U/L Total Protein 6.5 5.7-8.2 g/dL Albumin 4.0 3.2-4.8 g/dL Hepatitis B Surface Antibody Negative Negative Troponin I High Sensitivity < 3 L </=34 ng/L Lipase 31 12-53 U/L GB USG IMPRESSION: 1. Hepatic steatosis. 2. Cholelithiasis. Problems(with codes): (1) Morbid obesity (2) Hepatic steatosis (3) Fibroid uterus (4) Dysphagia (5) Atypical chest pain (6) Cholelithiasis Plan/Recommendation Plan NPO after midnight I will tentatively schedule him for a possible endoscopy on 09/02/2024 Further recommendations will be made after the above Review previous records Plan discussed with: Other (Dr Stephany Dean) EVELIA MORATAYA MD Sep 01, 2024 19:41
[2024-09-01 20:00] VITALS: PULSE 99; RESP 15; O2SAT 98
[2024-09-01 21:00] VITALS: BP 133/71; PULSE 99; RESP 15; TEMP 98.3; O2SAT 98
--- NOTE | 2024-09-01 21:21 | DVHPN2 ---
Assessment/Plan Assessment/Plan Progress note Subjective 1-year-old female admitted for chest pain, found to have cholelithiasis and right upper quadrant pain possibly related. Patient seen by me today during rounds plan for scope tomorrow, still not tolerating oral. Objective Physical exam Alert, oriented x3 PERRLA Obese Clear breath sounds bilaterally S1-S2 regular rate and rhythm no murmur Abdomen distended, tender to palpation, no rebound no guarding Moving all four extremities No lower extremity edema Lab Troponin negative Lipase negative Hemoglobin 17 EKG NSR Imaging Right upper quadrant ultrasound with cholelithiasis Nonobs nephrolithiasis No AAA, ascites Assessment and plan Abdominal pain Chest pain likely referred from above Cholelithiasis without cholecystitis URI ruled out dysphagia Zofran pepcid, maalox Advance diet as tolerated IV fluid No antibiotic at this moment switched zofran to reglan GI consult appreciated plan for scope Replete electrolytes Diet soft DVT prophylaxis ambulatory Plan discussed with: Patient My Orders Orders - PATTY TABARES MD Procedure Category Date Status Time * [facility] Tie Binder CONS 09/01/24 Transmitted 16:36 Npo After Midnight DIET 09/02/24 Transmitted Breakfast Date of Service: Sep 01, 2024 Billing Provider: PATTY TABARES MD Common Visit Codes: [id number] INP/OBS CARE(HIGH) PATTY TABARES MD Sep 01, 2024 21:21
[2024-09-02] VITALS (7 sets, daily range): BP systolic 118–154; BP diastolic 68–77; PULSE 60–90; RESP 14–18; TEMP 97.1–98; O2SAT 92–100
[2024-09-02 06:39] LABS: Basophils # (auto) 0 10 ^3/uL (0-0.2); Basophils % (auto) 0.8 % (0.0-2.0); Eosinophils # (auto) 0.2 10 ^3/uL (0-0.8); Eosinophils % (auto) 3.8 % (0.0-7.0); Hematocrit 44.1 % (36.0-46.0); Hemoglobin 15.3 g/dL (12.2-16.2); Lymphocytes # (auto) 1.3 10 ^3/uL (0.4-5.4); Lymphocytes % (auto) 24.7 % (10.0-50.0); Mean Corpuscular Hemoglobin 31.9 pg (28.0-32.0); Mean Corpuscular Hgb Conc. 34.6 g/dL (32.0-36.0); Mean Corpuscular Volume 92.1 fL (80.0-100.0); Monocytes # (auto) 0.5 10 ^3/uL (0-1.3); Monocytes % (auto) 9.1 % (0.0-12.0); Neutrophils # (auto) 3.3 10 ^3/uL (1.6-8.6); Neutrophils % (auto) 61.6 % (37.0-80.0); Nucleated Red Blood Cells % 0.2 %; Platelet Count (auto) 190 10^3/uL (140-450); Red Blood Cells 4.79 10^6/uL (4.0-5.20); Red Cell Distribution Width 12.7 % (11.8-14.3); White Blood Cell 5.3 10^3/uL (4.4-10.8)
[2024-09-02 06:41] LABS: Alanine Aminotransferase 15 U/L (7-40); Albumin 3.9 g/dL (3.2-4.8); Alkaline Phosphatase 81 U/L (46-116); Anion Gap 10 (5-15); Aspartate Aminotransferase 14 U/L (13-40); BUN/Creatinine Ratio 10.7 (10.0-20.0); Bilirubin, Total 0.7 mg/dL (0.2-1.0); Calcium 9.5 mg/dL (8.7-10.4); Carbon Dioxide 26 mmol/L (20-31); Glucose 92 mg/dL (74-106); Potassium 3.6 mmol/L (3.5-5.1); Sodium 143 mmol/L (136-145); Total Protein 6.4 g/dL (5.7-8.2)
[2024-09-02 06:46] LABS: Blood Urea Nitrogen 9 mg/dL (9-23); Chloride 107 mmol/L (98-107)
[2024-09-02] MEDS ORDERED: SODIUM CHLORIDE LOCK 10 ML ONE (11:20)
[2024-09-02] MEDS: MIDAZOLAM HCL 5 MG/ML-1ML VIAL ONE (11:44)
[2024-09-02] MEDS: fentaNYL CITRATE 100 MCG/2 ML VL ONE (11:44)
[2024-09-02] MEDS: diphenhdrAMINE HCL 50 MG/1 ML VL ONE (11:44)
[2024-09-02] MEDS: LIDOCAINE VISCOUS 2% 15ML UD ONE (11:44)
--- NOTE | 2024-09-02 12:08 | DVHOP2 ---
Operative Report DATE OF OPERATION: 09/02/24 PROCEDURE: Upper Endoscopy with biopsy. PREOPERATIVE INDICATION: The patient is a 59 -year-old female undergoing endoscopy for chronic GERD and frequent needing to clear her throat POSTOPERATIVE DIAGNOSES: 1. 2-3 cm sliding-type hiatal hernia with grade B linear erosive esophagitis and distal esophageal ulcerations; no stricture or obstruct 2. Mild to moderate gastroduodenitis PROCEDURE PERFORMED BY: Evelia Barnes GI NURSE: Nataliya SCOPE: Olympus videoendoscope. ASA CLASS: 3. PREOPERATIVE MEDICATIONS: Versed 5 mg, Fentanyl 100 mcg, Benadryl 50 mg I administered moderate sedation throughout this _9_ minutes procedure. An independent trained observer pushed medications at my direction, and monitored the patient's level of consciousness and physiological status throughout. PROCEDURE IN DETAIL: After obtaining an informed consent, the patient was placed on left lateral decubitus position. The patient was then sedated with the above medications. A bite block was placed between her teeth. The endoscope was then passed through the oropharynx, into the esophagus, and through the stomach and pylorus up to the second and third part of the duodenum. The endoscope was then withdrawn. The 2nd and 3rd part of the duodenum were normal. Duodenal bulb showed duodenitis. Duodenal biopsies were obtained The pre-pyloric area antrum and body showed mild gastritis. Gastric biopsies were obtained. On retroflexion the fundus cardia and angularis were normal. The endoscope was then withdrawn into the distal esophagus. Patient had a 2-3 cm sliding-type hiatal hernia with the acute linear erosive esophagitis grade B with some esophageal ulcers extending into the distal esophagus There was also some extension of columnar epithelium into the distal esophagus for 2-3 cm from which biopsies were obtained. The remaining distal and proximal esophagus were unremarkable except for some tertiary contractions. Oropharynx was unremarkable. The patient tolerated the procedure well without difficulty. COMPLICATIONS : None SPECIMENS: Duodenal biopsies Gastric biopsies Esophageal biopsies DISPOSITION: Transfer back to the floor Stable PLAN: 1. Await for biopsy result 2. Will place pt on Protonix 40 mg bid 3. Carafate 1 g p.o. 4 times a day 4. Lifestyle and dietary modifications for GERD 5. DC aspirin NSAIDs smoking alcohol 6. Outpatient follow up with me in 4-6 weeks to review results discuss further management and discuss outpatient elective screening colonoscopy EVELIA BARNES MD Sep 02, 2024 12:08
--- NOTE | 2024-09-02 15:03 | DVHPN2 ---
Assessment/Plan Assessment/Plan Progress note Subjective 1-year-old female admitted for chest pain, found to have cholelithiasis and right upper quadrant pain possibly related. Patient seen by me today during rounds scope done, hiatal herniawith erosive esophagitis and ulceration, liquid diet, carafa, PPI Objective Physical exam Alert, oriented x3 PERRLA Obese Clear breath sounds bilaterally S1-S2 regular rate and rhythm no murmur Abdomen distended, tender to palpation, no rebound no guarding Moving all four extremities No lower extremity edema Lab Troponin negative Lipase negative Hemoglobin 17 EKG NSR Imaging Right upper quadrant ultrasound with cholelithiasis Nonobs nephrolithiasis No AAA, ascites EGD 2-3 cm sliding-type hiatal hernia with grade B linear erosive esophagitis and distal esophageal ulcerations; no stricture or obstruct Mild to moderate gastroduodenitis Assessment and plan Abdominal pain Chest pain likely referred from above Cholelithiasis without cholecystitis URI ruled out dysphagia Zofran pepcid, maalox Advance diet as tolerated IV fluid No antibiotic at this moment switched zofran to reglan GI consult appreciated s/p scope advance diet as tolerated Replete electrolytes Diet soft DVT prophylaxis ambulatory Plan discussed with: Patient My Orders Orders - PATTY TABARES MD Procedure Category Date Status Time * [facility] Superintendent Service CONS 09/01/24 Transmitted 16:36 Date of Service: Sep 02, 2024 Billing Provider: PATYT TABARES MD Common Visit Codes: [id number] INP/OBS CARE(HIGH) PATTY TABARES MD Sep 02, 2024 15:03
[2024-09-02] MEDS: SUCRALFATE 1 GM/10 ML ORAL SUSP PO SCH (16:31)
[2024-09-02] MEDS: PANTOPRAZOLE 40 MG/10 ML VIAL INJ IV SCH (22:14)
[2024-09-03 05:00] VITALS: BP 125/89; PULSE 70; RESP 18; TEMP 97.5; O2SAT 92
[2024-09-03] MEDS ORDERED: METO5TAB67 PO (08:17)
[2024-09-03] MEDS ORDERED: PANT40TA2 PO (08:17)
[2024-09-03] MEDS ORDERED: SUCR1SUS26 PO (08:17)
[2024-09-03 08:21] VITALS: BP 107/71; PULSE 56; RESP 18; TEMP 97.5; O2SAT 88
[2024-09-03 13:00] VITALS: BP_SYST 105; BP_SYST 119; BP_DIAS 72; BP_DIAS 73; PULSE 58; PULSE 65; RESP 17; RESP 18; TEMP 97.8; O2SAT 92; O2SAT 99
--- NOTE | 2024-09-03 15:24 | DVHDS2 ---
Discharge Summary Date of Admission Aug 26, 2024 at 18:23 Date of Discharge: Sep 03, 2024 Labs/Diagnostic Data: Laboratory Results Test 09/02/24 05:01 08/29/24 08:38 08/27/24 06:34 08/26/24 14:40 White Blood Count 5.3 10^3/uL (4.4-10.8) Red Blood Count 4.79 10^6/uL (4.0-5.20) Hemoglobin 15.3 g/dL (12.2-16.2) Hematocrit 44.1 % (36.0-46.0) Mean Corpuscular Volume 92.1 fL (80.0-100.0) Mean Corpuscular Hemoglobin 31.9 pg (28.0-32.0) Mean Corpuscular Hemoglobin Concent 34.6 g/dL (32.0-36.0) Red Cell Distribution Width 12.7 % (11.8-14.3) Platelet Count 190 10^3/uL (140-450) Mean Platelet Volume 9.8 fL (6.9-10.8) Neutrophils (%) (Auto) 61.6 % (37.0-80.0) Lymphocytes (%) (Auto) 24.7 % (10.0-50.0) Monocytes (%) (Auto) 9.1 % (0.0-12.0) Eosinophils (%) (Auto) 3.8 % (0.0-7.0) Basophils (%) (Auto) 0.8 % (0.0-2.0) Neutrophils # (Auto) 3.3 10 ^3/uL (1.6-8.6) Lymphocytes # (Auto) 1.3 10 ^3/uL (0.4-5.4) Monocytes # (Auto) 0.5 10 ^3/uL (0-1.3) Eosinophils # (Auto) 0.2 10 ^3/uL (0-0.8) Basophils # (Auto) 0 10 ^3/uL (0-0.2) Nucleated Red Blood Cells 0.2 % Sodium Level 143 mmol/L (136-145) Potassium Level 3.6 mmol/L (3.5-5.1) Chloride Level 107 mmol/L (98-107) Carbon Dioxide Level 26 mmol/L (20-31) Anion Gap 10 (5-15) Blood Urea Nitrogen 9 mg/dL (9-23) Creatinine 0.84 mg/dL (0.550-1.02) Glomerular Filtration Rate Calc 80 mL/min (>90) BUN/Creatinine Ratio 10.7 (10.0-20.0) Serum Glucose 92 mg/dL (74-106) Calcium Level 9.5 mg/dL (8.7-10.4) Total Bilirubin 0.7 mg/dL (0.2-1.0) Aspartate Amino Transferase (AST) 14 U/L (13-40) Alanine Aminotransferase (ALT) 15 U/L (7-40) Alkaline Phosphatase 81 U/L (46-116) Total Protein 6.4 g/dL (5.7-8.2) Albumin 3.9 g/dL (3.2-4.8) Urine Color Yellow (Yellow) Urine Clarity Clear (Clear) Urine pH 5.5 (5.0-9.0) Urine Specific [place] 1.017 (1.001-1.035) Urine Protein Negative (Negative) Urine Ketones 1+ (Negative) Urine Blood Trace /uL (Negative) Urine Nitrite Negative (Negative) Urine Bilirubin Negative (Negative) Urine Urobilinogen Normal mg/dL (Negative) Urine Leukocyte Esterase 1+ /uL (Negative) Urine RBC 1 /hpf (0 - 4) Urine WBC 6 /hpf (0 - 5) Urine Squamous Epithelial Cells Few /hpf (<5) Urine Bacteria Few /hpf (None Seen) Urine Glucose Normal mg/dL (Normal) Urine Opiates Screen Neg (NEGATIVE) Urine Fentanyl Screen Neg (NEGATIVE) Urine Barbiturates Screen Neg (NEGATIVE) Urine Phencyclidine Screen Neg (NEGATIVE) Urine Amphetamines Screen Neg (NEGATIVE) Urine Benzodiazepines Screen Neg (NEGATIVE) Urine Cocaine Screen Neg (NEGATIVE) Urine Cannabinoids Screen Neg (NEGATIVE) Hepatitis B Surface Antibody Negative (Negative) Troponin I High Sensitivity < 3 ng/L (</=34) Lipase 31 U/L (12-53) Other Laboratory Tests 09/02/24 05:01 Brief Hx & Hospital Course: 59 F with abdominal discomfort with eating, refused to eat or escalating diet, workup done US and CT, s/p gi consult with EGD showing gastritis. cholecystitis without cholelithiasis. Patient keep refusing oral feeding due to pain however was not taking offered pain medication. stable vitals and labs, cleared by GI to follow up as outpatient. stable to dischagre Condition at Discharge: Good Final Diagnosis/Problems List gastritis cholelitiasis w/o cholecystitis refusal to advance diet Discharge Disposition: Home Discharge Instruct/Medications Diet: See Comment Diet comment: liquid diet Activity: No Restrictions, As Tolerated Follow Up/Referral: PCP gastroenterology as outpatient for cholelithiasis and gastritis Medications: protonix sucralfate 39 Discharge Statement: "Patient was advised to return to the ER or call 911 if any headaches, dizziness, shortness of breath, chest pain, abdominal pain, bleeding, fevers, or worsening of medical condition. Patient was counseled about treatment plan, medications, possible side effects, patientverbalized understanding. All questions were answered to the best of my ability. This discharge took greater then 30 minutes in planning, reviewing documentation, counseling the patient, and discussing with other team members." ASSESSMENT ASSESSMENT Assessment Abdominal pain Chest pain likely referred from above Cholelithiasis without cholecystitis URI ruled out dysphagia Date of Service: Sep 03, 2024 Billing Provider: PATTY TABARES MD Common Visit Codes: [id number] DISCH DAY >30min PATTY TABARES MD Sep 03, 2024 15:24
[2024-09-03 17:18] VITALS: BP 118/64; PULSE 57; RESP 16; TEMP 97.5; O2SAT 96
--- NOTE | 2024-09-03 19:17 | DVHPN2 ---
Assessment/Plan Assessment/Plan Progress note Subjective 1-year-old female admitted for chest pain, found to have cholelithiasis and right upper quadrant pain possibly related. Patient seen by me today during rounds medically stable to discharge, patient refusing to escalate diet, discussed with GI and she is cleared, however on discharge she reported suicidal thoughts. sitter, tele psych ordered. discharge cancelled until further assessment. Objective Physical exam Alert, oriented x3 PERRLA Obese Clear breath sounds bilaterally S1-S2 regular rate and rhythm no murmur Abdomen distended, tender to palpation, no rebound no guarding Moving all four extremities No lower extremity edema Lab Troponin negative Lipase negative Hemoglobin 17 EKG NSR Imaging Right upper quadrant ultrasound with cholelithiasis Nonobs nephrolithiasis No AAA, ascites EGD 2-3 cm sliding-type hiatal hernia with grade B linear erosive esophagitis and distal esophageal ulcerations; no stricture or obstruct Mild to moderate gastroduodenitis Assessment and plan Abdominal pain Chest pain likely referred from above Cholelithiasis without cholecystitis URI ruled out dysphagia Suicidal ideation possible malingering Zofran pepcid, maalox Advance diet as tolerated IV fluid No antibiotic at this moment switched zofran to reglan GI consult appreciated s/p scope advance diet as tolerated sitter for safety tele spych elopement precaution Replete electrolytes Diet soft DVT prophylaxis ambulatory Plan discussed with: Other My Orders Orders - PATTY TABARES MD Procedure Category Date Status Time * Surgical Consult CONS 09/03/24 Transmitted *Tele Psych Consult CONS 09/03/24 Transmitted 19:09 Sitter 1:1 ORDERS 09/03/24 Transmitted 19:11 Date of Service: Sep 03, 2024 Billing Provider: PATTY TABARES MD Common Visit Codes: [id number] INP/OBS CARE(HIGH) PATTY TABARES MD Sep 03, 2024 19:17
[2024-09-03 20:00] VITALS: PULSE 62; RESP 20
--- NOTE | 2024-09-03 20:34 | DVHPN2 ---
Progress Note - Dictate Date Seen: Sep 03, 2024 Medical Necessity Reason Pt with a Central, PICC or Fol: No Subjective Patient continues to complain of abdominal discomfort Discharge planning was in progress however the patient reported suicidal thoughts She is awaiting tele psych consult and a sitter Patient did appeared depressed and stated she had recently moved into a town She is preoccupied with multiple medical issues vital signs Vital Sign Date Time Temp Pulse Resp B/P (MAP) Pulse Ox O2 Delivery O2 Flow Rate FiO2 09/03/24 17:18 97.5 57 16 118/64 (82) 96 97.5 09/03/24 08:05 Room Air* 0 21 Total Intake and Output 09/02/24 09/02/24 09/03/24 15:00 23:00 07:00 Intake Total 540 ml 650 ml Output Total 800 ml 200 ml Balance -260 ml 450 ml medications Current Medications Medications Dose Ordered Sig/Rafael Route Start Time Stop Time Status Last Admin Dose Admin Sodium Chloride 1,000 ml @ 60 mls/hr [id number] IV 08/26/24 18:30 09/03/24 11:36 60 MLS/HR Acetaminophen 650 mg Q6HP PRN PO 08/26/24 18:30 08/30/24 10:31 650 MG Acetaminophen/ Hydrocodone Bitart 1 tab Q4HP PRN PO 08/26/24 18:30 Morphine Sulfate 2 mg Q4HPRN PRN IV 08/26/24 18:30 Sertraline HCl 25 mg DAILY PO 08/28/24 10:00 09/03/24 11:35 25 MG Aspirin 81 mg DAILY PO 08/28/24 10:00 09/03/24 11:35 81 MG Al Hydrox/Mg Hydrox/Simethicone 30 ml Q8HR PO 08/27/24 22:00 09/03/24 17:23 30 ML Polyethylene Glycol 17 gm DAILY PO 08/28/24 10:00 09/01/24 09:33 17 GM Famotidine 20 mg Q12HR PO 08/28/24 22:00 09/03/24 11:35 20 MG Metoclopramide HCl 5 mg Q8HR IV 08/29/24 22:00 09/03/24 17:23 5 MG Pantoprazole Sodium 40 mg BID IV 09/02/24 22:00 09/03/24 11:35 40 MG Sucralfate 1 gm QID@0600,1130,1700,2200 PO 09/02/24 17:00 09/03/24 17:23 1 GM objective Alert, oriented x3 PERRLA Obese Clear breath sounds bilaterally S1-S2 regular rate and rhythm no murmur Abdomen distended, tender to palpation, no rebound no guarding Moving all four extremities No lower extremity edema laboratory and microbiology Laboratory Tests 09/02/24 05:01 Test 09/02/24 05:01 Range/Units Serum Glucose 92 74-106 mg/dL Problems(with codes): (1) Hiatal hernia with gastroesophageal reflux disease and esophagitis (2) Cholelithiasis (3) Atypical chest pain (4) Hepatic steatosis (5) Dysphagia (6) Fibroid uterus (7) Morbid obesity (8) Acute abdominal pain Prognosis Plan Protonix 40 mg p.o. twice a day Carafate 1 g p.o. twice a day Lifestyle and dietary modifications for GERD Full liquid diet advance slowly as tolerated No further GI workup at this time Outpatient follow up with GI Services as needed Patient's liver enzymes are normal and there was no evidence of acute cholecystitis Dietary Evaluation Review Comments: 1) Consider a Cardiac diet 2) Continue current plan of care Expected Outcomes/Goals: 1) F/U in 3-5 days Plan discussed with: Other (Dr Dean) EVELIA MORATAYA MD Sep 03, 2024 20:34
[2024-09-03 21:00] VITALS: BP 141/74; PULSE 58; RESP 17; TEMP 97.8; O2SAT 97
[2024-09-04] VITALS (8 sets, daily range): BP systolic 108–144; BP diastolic 57–70; PULSE 55–67; RESP 17–20; TEMP 97.7–98.1; O2SAT 92–98
--- NOTE | 2024-09-04 08:46 | DVHPN2 ---
Progress Note - Dictate Date Seen: Sep 04, 2024 Medical Necessity Reason Pt with a Central, PICC or Fol: No Subjective Patient is sleeping comfortably No new complaints Discharge planning was in progress however the patient reported suicidal thoughts She is awaiting tele psych consult Patient did appeared depressed and stated she had recently moved into a town She is preoccupied with multiple medical issues vital signs Vital Sign Date Time Temp Pulse Resp B/P (MAP) Pulse Ox O2 Delivery O2 Flow Rate FiO2 09/04/24 05:02 97.9 65 20 108/58 (75) 93 97.9 09/03/24 20:00 Room Air* 0 21 Total Intake and Output 09/03/24 09/03/24 09/04/24 15:00 23:00 07:00 Intake Total 90 ml 480 ml Balance 90 ml 480 ml medications Current Medications Medications Dose Ordered Sig/Rafael Route Start Time Stop Time Status Last Admin Dose Admin Sodium Chloride 1,000 ml @ 60 mls/hr [id number] IV 08/26/24 18:30 09/04/24 02:46 60 MLS/HR Acetaminophen 650 mg Q6HP PRN PO 08/26/24 18:30 08/30/24 10:31 650 MG Acetaminophen/ Hydrocodone Bitart 1 tab Q4HP PRN PO 08/26/24 18:30 Morphine Sulfate 2 mg Q4HPRN PRN IV 08/26/24 18:30 Sertraline HCl 25 mg DAILY PO 08/28/24 10:00 09/03/24 11:35 25 MG Aspirin 81 mg DAILY PO 08/28/24 10:00 09/03/24 11:35 81 MG Al Hydrox/Mg Hydrox/Simethicone 30 ml Q8HR PO 08/27/24 22:00 09/04/24 05:55 30 ML Polyethylene Glycol 17 gm DAILY PO 08/28/24 10:00 09/01/24 09:33 17 GM Famotidine 20 mg Q12HR PO 08/28/24 22:00 09/03/24 22:00 20 MG Metoclopramide HCl 5 mg Q8HR IV 08/29/24 22:00 09/04/24 05:55 5 MG Pantoprazole Sodium 40 mg BID IV 09/02/24 22:00 09/03/24 22:00 40 MG Sucralfate 1 gm QID@0600,1130,1700,2200 PO 09/02/24 17:00 09/04/24 05:55 1 GM objective Alert, oriented x3 PERRLA Obese Clear breath sounds bilaterally S1-S2 regular rate and rhythm no murmur Abdomen distended, tender to palpation, no rebound no guarding Moving all four extremities No lower extremity edema laboratory and microbiology Laboratory Tests 09/02/24 05:01 Test 09/02/24 05:01 Range/Units Serum Glucose 92 74-106 mg/dL Problems(with codes): (1) Hiatal hernia with gastroesophageal reflux disease and esophagitis (2) Cholelithiasis (3) Atypical chest pain (4) Hepatic steatosis (5) Dysphagia Prognosis Plan Protonix 40 mg p.o. twice a day Carafate 1 g p.o. twice a day Lifestyle and dietary modifications for GERD Full liquid diet advance slowly as tolerated No further GI workup at this time Outpatient follow up with GI Services as needed Patient's liver enzymes are normal and there was no evidence of acute cholecystitis Dietary Evaluation Review Comments: 1) Consider a Cardiac diet 2) Continue current plan of care Expected Outcomes/Goals: 1) F/U in 3-5 days Plan discussed with: Other (Dr Dean) EVELIA MORATAYA MD Sep 04, 2024 08:46
--- NOTE | 2024-09-04 12:55 | DVHPN2 ---
Assessment/Plan Assessment/Plan Progress note Subjective 1-year-old female admitted for chest pain, found to have cholelithiasis and right upper quadrant pain possibly related. seen by GI, s/p scands and EGD. medically stable to discharge, patient refusing to escalate diet, discussed with GI and she is cleared, however on discharge she reported suicidal thoughts. Patient seen by me today during rounds Not articulating clear plan. pending tele psych. patient expressed wanting to go to inpatient psych Objective Physical exam Alert, oriented x3 PERRLA Obese Clear breath sounds bilaterally S1-S2 regular rate and rhythm no murmur Abdomen distended, tender to palpation, no rebound no guarding Moving all four extremities No lower extremity edema Lab Troponin negative Lipase negative Hemoglobin 17 EKG NSR Imaging Right upper quadrant ultrasound with cholelithiasis Nonobs nephrolithiasis No AAA, ascites EGD 2-3 cm sliding-type hiatal hernia with grade B linear erosive esophagitis and distal esophageal ulcerations; no stricture or obstruct Mild to moderate gastroduodenitis Assessment and plan Abdominal pain Chest pain likely referred from above Cholelithiasis without cholecystitis URI ruled out dysphagia Suicidal ideation possible malingering Zofran pepcid, maalox Advance diet as tolerated IV fluid No antibiotic at this moment switched zofran to reglan GI consult appreciated s/p scope advance diet as tolerated sitter for safety tele spych elopement precaution Replete electrolytes Diet soft DVT prophylaxis ambulatory Plan discussed with: Other My Orders Orders - PATTY TABARES MD Procedure Category Date Status Time *Tele Psych Consult CONS 09/03/24 Transmitted 19:09 Sitter 1:1 ORDERS 09/03/24 Transmitted 19:11 *Tele Psych Consult CONS 09/04/24 Verified 12:54 Date of Service: Sep 04, 2024 Billing Provider: PATTY TABARES MD Common Visit Codes: [id number] INP/OBS CARE(HIGH) PATTY TABARES MD Sep 04, 2024 12:55
--- NOTE | 2024-09-04 16:54 | DVHINCON2 ---
Date of Service if different f: Sep 04, 2024 Consultation ([place]) Labs Laboratory Tests Test 08/26/24 14:40 08/27/24 06:34 08/29/24 08:38 09/02/24 05:01 Troponin I High Sensitivity < 3 ng/L (</=34) Lipase 31 U/L (12-53) Hepatitis B Surface Antibody Negative (Negative) Urine Color Yellow (Yellow) Urine Clarity Clear (Clear) Urine pH 5.5 (5.0-9.0) Urine Specific [place] 1.017 (1.001-1.035) Urine Protein Negative (Negative) Urine Ketones 1+ (Negative) Urine Blood Trace /uL (Negative) Urine Nitrite Negative (Negative) Urine Bilirubin Negative (Negative) Urine Urobilinogen Normal mg/dL (Negative) Urine Leukocyte Esterase 1+ /uL (Negative) Urine RBC 1 /hpf (0 - 4) Urine WBC 6 /hpf (0 - 5) Urine Squamous Epithelial Cells Few /hpf (<5) Urine Bacteria Few /hpf (None Seen) Urine Glucose Normal mg/dL (Normal) Urine Opiates Screen Neg (NEGATIVE) Urine Fentanyl Screen Neg (NEGATIVE) Urine Barbiturates Screen Neg (NEGATIVE) Urine Phencyclidine Screen Neg (NEGATIVE) Urine Amphetamines Screen Neg (NEGATIVE) Urine Benzodiazepines Screen Neg (NEGATIVE) Urine Cocaine Screen Neg (NEGATIVE) Urine Cannabinoids Screen Neg (NEGATIVE) White Blood Count 5.3 10^3/uL (4.4-10.8) Red Blood Count 4.79 10^6/uL (4.0-5.20) Hemoglobin 15.3 g/dL (12.2-16.2) Hematocrit 44.1 % (36.0-46.0) Mean Corpuscular Volume 92.1 fL (80.0-100.0) Mean Corpuscular Hemoglobin 31.9 pg (28.0-32.0) Mean Corpuscular Hemoglobin Concent 34.6 g/dL (32.0-36.0) Red Cell Distribution Width 12.7 % (11.8-14.3) Platelet Count 190 10^3/uL (140-450) Mean Platelet Volume 9.8 fL (6.9-10.8) Neutrophils (%) (Auto) 61.6 % (37.0-80.0) Lymphocytes (%) (Auto) 24.7 % (10.0-50.0) Monocytes (%) (Auto) 9.1 % (0.0-12.0) Eosinophils (%) (Auto) 3.8 % (0.0-7.0) Basophils (%) (Auto) 0.8 % (0.0-2.0) Neutrophils # (Auto) 3.3 10 ^3/uL (1.6-8.6) Lymphocytes # (Auto) 1.3 10 ^3/uL (0.4-5.4) Monocytes # (Auto) 0.5 10 ^3/uL (0-1.3) Eosinophils # (Auto) 0.2 10 ^3/uL (0-0.8) Basophils # (Auto) 0 10 ^3/uL (0-0.2) Nucleated Red Blood Cells 0.2 % Sodium Level 143 mmol/L (136-145) Potassium Level 3.6 mmol/L (3.5-5.1) Chloride Level 107 mmol/L (98-107) Carbon Dioxide Level 26 mmol/L (20-31) Anion Gap 10 (5-15) Blood Urea Nitrogen 9 mg/dL (9-23) Creatinine 0.84 mg/dL (0.550-1.02) Glomerular Filtration Rate Calc 80 mL/min (>90) BUN/Creatinine Ratio 10.7 (10.0-20.0) Serum Glucose 92 mg/dL (74-106) Calcium Level 9.5 mg/dL (8.7-10.4) Total Bilirubin 0.7 mg/dL (0.2-1.0) Aspartate Amino Transf (AST/SGOT) 14 U/L (13-40) Alanine Aminotransferase (ALT/SGPT) 15 U/L (7-40) Alkaline Phosphatase 81 U/L (46-116) Total Protein 6.4 g/dL (5.7-8.2) Albumin 3.9 g/dL (3.2-4.8) Appetite: Limited Appearance: Stated age Psychomotor activity: WNL Behavioral: Cooperative Eye contact: Appropriate Speech: WNL Affect: Inappropriate to mood Mood: Depressed Thought processes: Linear/Goal-directed Thought content: WNL Suicidal ideations: Present (active) Orientation: Person, Place, Time, Situation Memory intact: Recent Intellect: Average Abstractability: WNL Concentration: Adequate Attention: Adequate Judgement: Poor Insight: Poor Vitals Vital Signs Date Time Temp Pulse Resp B/P (MAP) Pulse Ox O2 Delivery O2 Flow Rate FiO2 09/04/24 13:00 98.1 66 17 110/57 (74) 95 98.1 09/04/24 08:00 Room Air* 0 21 Current medications Current Medications Medications Dose Ordered Sig/Rafael Route Start Time Stop Time Status Last Admin Dose Admin Sodium Chloride 1,000 ml @ 60 mls/hr [id number] IV 08/26/24 18:30 09/04/24 02:46 60 MLS/HR Acetaminophen 650 mg Q6HP PRN PO 08/26/24 18:30 08/30/24 10:31 650 MG Acetaminophen/ Hydrocodone Bitart 1 tab Q4HP PRN PO 08/26/24 18:30 Morphine Sulfate 2 mg Q4HPRN PRN IV 08/26/24 18:30 Sertraline HCl 25 mg DAILY PO 08/28/24 10:00 09/04/24 09:52 25 MG Aspirin 81 mg DAILY PO 08/28/24 10:00 09/04/24 09:52 81 MG Al Hydrox/Mg Hydrox/Simethicone 30 ml Q8HR PO 08/27/24 22:00 09/04/24 05:55 30 ML Polyethylene Glycol 17 gm DAILY PO 08/28/24 10:00 09/01/24 09:33 17 GM Famotidine 20 mg Q12HR PO 08/28/24 22:00 09/04/24 09:52 20 MG Metoclopramide HCl 5 mg Q8HR IV 08/29/24 22:00 09/04/24 05:55 5 MG Pantoprazole Sodium 40 mg BID IV 09/02/24 22:00 09/04/24 09:52 40 MG Sucralfate 1 gm QID@0600,1130,1700,2200 PO 09/02/24 17:00 09/04/24 11:57 1 GM Medication adjusted: Yes Diagnosis: Unspecified mood disorder, unspecified psychosis Plan : Pt is reporting Si unclear if for secondary gain, but she agrees to go voluntary Please transfer pt vol to psychiatric hospital recommend to continue sertraline and increase to 1.5tabs for 75mg. Increase Abilify to 5mg po daily. History of Present Illness Reason for Consult :endorsing Si after orders for discharge HPI : This is a 59-year-old female with hx of depression and anxiety, presented to ED for abdominal pain. Patient was evaluated using telepsychiatry. On evaluation, pt reports feeling suicidal x 2 days and trigger is mom who 2 years go. She reports frequent SI, and " It comes and goes." She reports plans to cut herself or run into traffic. She feels like she no longer wants to live. She denies homicidal thoughts. She denies auditory/visual hallucinations. She does have paranoia that other unknown people want to harm her. Her sleep is variable. She reports appetite is usually good. Past Psychiatric History : She reports prior psych admissions and holds, last, earlier this year at [facility]. She reports prior suicide attempt with cutting her wrist and OD on pills. She is prescribed sertraline 50mg and Abilify 2mg x1 year and reports compliance. She has not followed up with psychiatrist x 2 month because she moved but still has prescription. Past Medical History : Hx of HTN, hypotension, Obesity, scoliosis Social History : She reports living with roommate and in a friend's home until she can find own apartment. She does say she likes current arrangement and able to retune there after discharge. She reports not having to pay rent to friend. She receives SSI medical disability. She was using meth for yrs now sober x 3 years. She denies other substances including alcohol and cigarette. She denies any known family history. DONNA POST DNP Sep 04, 2024 16:54
[2024-09-04] MEDS: SERTRALINE HCL 50 MG TAB PO ONE (18:25)
[2024-09-05 05:00] VITALS: BP 125/73; PULSE 78; RESP 20; TEMP 97.6; O2SAT 90
[2024-09-05 08:00] VITALS: PULSE 60; RESP 20; O2SAT 93
[2024-09-05 08:55] VITALS: BP 132/70; PULSE 60; RESP 17; TEMP 98; O2SAT 95
[2024-09-05] MEDS: ENOXAPARIN SOD 40 MG/0.4 ML SYRINGE SC SCH (10:59)
[2024-09-05] MEDS: SERTRALINE HCL 50 MG TAB PO SCH (11:00)
[2024-09-05 12:46] VITALS: BP 123/79; PULSE 72; RESP 17; TEMP 98.5; O2SAT 90
--- NOTE | 2024-09-05 13:29 | DVHPN2 ---
Assessment/Plan Assessment/Plan Progress note Subjective 1-year-old female admitted for chest pain, found to have cholelithiasis and right upper quadrant pain possibly related. seen by GI, s/p scands and EGD. medically stable to discharge, patient refusing to escalate diet, discussed with GI and she is cleared, however on discharge she reported suicidal thoughts. Patient seen by me today during rounds tele psych appreciated, patient for voluntary transfer to acute inpatient psych Objective Physical exam Alert, oriented x3 PERRLA Obese Clear breath sounds bilaterally S1-S2 regular rate and rhythm no murmur Abdomen distended, tender to palpation, no rebound no guarding Moving all four extremities No lower extremity edema Lab Troponin negative Lipase negative Hemoglobin 17 EKG NSR Imaging Right upper quadrant ultrasound with cholelithiasis Nonobs nephrolithiasis No AAA, ascites EGD 2-3 cm sliding-type hiatal hernia with grade B linear erosive esophagitis and distal esophageal ulcerations; no stricture or obstruct Mild to moderate gastroduodenitis Assessment and plan Abdominal pain Chest pain likely referred from above Cholelithiasis without cholecystitis URI ruled out dysphagia Suicidal ideation possible malingering Zofran pepcid, maalox Advance diet as tolerated IV fluid No antibiotic at this moment switched zofran to reglan GI consult appreciated s/p scope advance diet as tolerated sitter for safety tele spych appreciated elopement precaution voluntary transfer to acute inp psych Replete electrolytes Diet soft DVT prophylaxis lovenox Plan discussed with: Patient My Orders Orders - PATTY TABARES MD Procedure Category Date Status Time Sertraline Hcl PHA 09/05/24 In Process (Zoloft) 10:00 * 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
[2024-09-05 16:30] VITALS: BP 121/62; PULSE 66; RESP 17; TEMP 97.6; O2SAT 99
--- NOTE | 2024-09-05 16:57 | DVHPN2 ---
Progress Note - Dictate Date Seen: Sep 05, 2024 Medical Necessity Reason Pt with a Central, PICC or Fol: No Subjective Patient is sleeping comfortably No new complaints Discharge planning was in progress however the patient reported suicidal thoughts She has been seen by tele psych consult Patient is requesting upon entry transferred to a psych hospital vital signs Vital Sign Date Time Temp Pulse Resp B/P (MAP) Pulse Ox O2 Delivery O2 Flow Rate FiO2 09/05/24 16:30 97.6 66 17 121/62 (81) 99 97.6 09/05/24 08:00 Room Air* 0 21 Total Intake and Output 09/04/24 09/04/24 09/05/24 15:00 23:00 07:00 Intake Total 240 ml 60 ml Output Total 300 ml Balance 240 ml -240 ml medications Current Medications Medications Dose Ordered Sig/Rafael Route Start Time Stop Time Status Last Admin Dose Admin Sodium Chloride 1,000 ml @ 60 mls/hr [id number] IV 08/26/24 18:30 09/05/24 11:24 60 MLS/HR Acetaminophen 650 mg Q6HP PRN PO 08/26/24 18:30 08/30/24 10:31 650 MG Aspirin 81 mg DAILY PO 08/28/24 10:00 09/05/24 10:59 81 MG Al Hydrox/Mg Hydrox/Simethicone 30 ml Q8HR PO 08/27/24 22:00 09/05/24 05:56 30 ML Polyethylene Glycol 17 gm DAILY PO 08/28/24 10:00 09/01/24 09:33 17 GM Metoclopramide HCl 5 mg Q8HR IV 08/29/24 22:00 09/05/24 05:56 5 MG Pantoprazole Sodium 40 mg BID IV 09/02/24 22:00 09/05/24 10:59 40 MG Sucralfate 1 gm QID@0600,1130,1700,2200 PO 09/02/24 17:00 09/05/24 10:59 1 GM Sertraline HCl 75 mg DAILY PO 09/05/24 10:00 09/05/24 11:00 75 MG Enoxaparin Sodium 40 mg DAILY SC 09/05/24 10:00 09/05/24 10:59 40 MG objective Alert, oriented x3 PERRLA Obese Clear breath sounds bilaterally S1-S2 regular rate and rhythm no murmur Abdomen distended, tender to palpation, no rebound no guarding Moving all four extremities No lower extremity edema laboratory and microbiology Laboratory Tests 09/02/24 05:01 Test 09/02/24 05:01 Range/Units Serum Glucose 92 74-106 mg/dL Problems(with codes): (1) Suicidal ideation (2) Depression (3) Hiatal hernia with gastroesophageal reflux disease and esophagitis (4) Cholelithiasis (5) Atypical chest pain (6) Hepatic steatosis (7) Dysphagia (8) Fibroid uterus (9) Morbid obesity Prognosis Plan Protonix 40 mg p.o. twice a day Carafate 1 g p.o. twice a day Lifestyle and dietary modifications for GERD Advance slowly as tolerated No further GI workup at this time Outpatient follow up with GI Services as needed Patient's liver enzymes are normal and there was no evidence of acute cholecystitis Dietary Evaluation Review Comments: 1) Consider a Cardiac diet 2) Continue current plan of care Expected Outcomes/Goals: 1) F/U in 3-5 days Plan discussed with: Other (None) EVELIA MORATAYA MD Sep 05, 2024 16:57
[2024-09-05 22:00] VITALS: BP 112/58; PULSE 57; RESP 17; TEMP 97.9; O2SAT 94
[2024-09-06 05:00] VITALS: BP 137/59; PULSE 68; RESP 18; TEMP 97.4; O2SAT 100
[2024-09-06 08:00] VITALS: PULSE 61; RESP 18
[2024-09-06 14:00] VITALS: BP 126/68; PULSE 61; RESP 18; TEMP 98.7; O2SAT 93
[2024-09-06 16:58] VITALS: BP 128/68; PULSE 60; RESP 18; TEMP 98.7; O2SAT 91
--- NOTE | 2024-09-06 17:57 | DVHPN2 ---
Subjective c/o epigastric discomfort/denies any nausea or vomiting/awaiting transfer to ip psych Changes from previous H/P or p: No Changes Eyes: No Pain, No Vision change, No Conjunctivae inflammation, No Eyelid inflammation, No Other, No Redness ENT: No Ear pain, No Ear discharge, No Nose pain, No Nose discharge, No Nose congestion, No Mouth pain, No Mouth swelling, No Throat pain, No Throat swelling, No Other Cardiovascular: Chest Pain, Palpitations; No Orthopnea, No Paroxysmal Noc. Dyspnea, No Edema, No Lt Headedness, No Other Respiratory: No Cough, No Dry, No Shortness of breath, No SOB with excertion, No Wheezing, No Hemoptysis, No Pleuritic Pain, No Sputum, No Other Gastrointestinal: Nausea, Vomiting, Abdominal Pain; No Diarrhea, No Constipation, No Melena, No Hematochezia, No Other Genitourinary: No Dysuria, No Frequency, No Incontinence, No Hematuria, No Retention, No Other Musculoskeletal: No other, No neck pain, No shoulder pain, No arm pain, No back pain, No hand pain, No leg pain, No foot pain Skin: No Rash, No Lesions, No Jaundice, No Bruising, No Other Objective Vitals Vital Signs Date Time Temp Pulse Resp B/P (MAP) Pulse Ox O2 Delivery O2 Flow Rate FiO2 09/06/24 16:58 98.7 60 18 128/68 (88) 91 98.7 09/05/24 20:00 Room Air* 0 21 Intake/Output Intake and Output 09/06/24 07:00 Intake Total 800 ml Balance 800 ml Intake Oral 800 ml # Voids 7 General Appearance: Alert, Oriented X3, Cooperative, No acute distress Lungs: Clear to auscultation Cardiovascular: Regular rate, Normal S1, Normal S2 Abdomen: Normal bowel sounds, Soft, No tenderness, No hepatospenomegaly Neuro: Normal gait, Normal speech, Strength at 5/5 X4 ext, Normal tone, S ensation intact, Cranial nerves 3-12 NL Psych/Mental Status: Mental status NL Medications Current Medications Medications Dose Ordered Sig/Rafael Route Start Time Stop Time Status Last Admin Dose Admin Sodium Chloride 1,000 ml @ 60 mls/hr [id number] IV 08/26/24 18:30 09/06/24 04:30 60 MLS/HR Acetaminophen 650 mg Q6HP PRN PO 08/26/24 18:30 08/30/24 10:31 650 MG Aspirin 81 mg DAILY PO 08/28/24 10:00 09/06/24 10:11 81 MG Al Hydrox/Mg Hydrox/Simethicone 30 ml Q8HR PO 08/27/24 22:00 09/06/24 15:01 30 ML Polyethylene Glycol 17 gm DAILY PO 08/28/24 10:00 09/01/24 09:33 17 GM Metoclopramide HCl 5 mg Q8HR IV 08/29/24 22:00 09/06/24 15:01 5 MG Pantoprazole Sodium 40 mg BID IV 09/02/24 22:00 09/06/24 10:11 40 MG Sucralfate 1 gm QID@0600,1130,1700,2200 PO 09/02/24 17:00 09/06/24 13:18 1 GM Sertraline HCl 75 mg DAILY PO 09/05/24 10:00 09/06/24 10:12 75 MG Enoxaparin Sodium 40 mg DAILY SC 09/05/24 10:00 09/06/24 10:12 40 MG Laboratory Results Laboratory Tests 09/02/24 05:01 Urinalysis Test 08/29/24 08:38 Urine Color Yellow (Yellow) Urine Clarity Clear (Clear) Urine pH 5.5 (5.0-9.0) Urine Specific [place] 1.017 (1.001-1.035) Urine Protein Negative (Negative) Urine Ketones 1+ (Negative) H Urine Blood Trace /uL (Negative) H Urine Nitrite Negative (Negative) Urine Bilirubin Negative (Negative) Urine Urobilinogen Normal mg/dL (Negative) Urine Leukocyte Esterase 1+ /uL (Negative) Urine RBC 1 /hpf (0 - 4) Urine WBC 6 /hpf (0 - 5) Urine Squamous Epithelial Cells Few /hpf (<5) Urine Bacteria Few /hpf (None Seen) H Urine Glucose Normal mg/dL (Normal) Labs and/or images reviewed: Labs reviewed by me, Image(s) reviewed by me Assessment/Plan Assessment/Plan gastritis on ppi depression with suicidal thoughts- awaiting transfer to psych Plan discussed with: Patient, Other Date of Service: Sep 06, 2024 Billing Provider: ZION BONNER MD Common Visit Codes: [id number] INP/OBS CARE(MOD) ZION BONNER MD Sep 06, 2024 17:57
[2024-09-06 20:00] VITALS: PULSE 64; RESP 18; O2SAT 97
--- NOTE | 2024-09-06 20:42 | DVHPN2 ---
Progress Note - Dictate Date Seen: Sep 06, 2024 Medical Necessity Reason Pt with a Central, PICC or Fol: No Subjective Patient is sleeping comfortably No new complaints Discharge planning was in progress however the patient reported suicidal thoughts She has been seen by tele psych consult Patient is requesting upon entry transferred to a psych hospital vital signs Vital Sign Date Time Temp Pulse Resp B/P (MAP) Pulse Ox O2 Delivery O2 Flow Rate FiO2 09/06/24 16:58 98.7 60 18 128/68 (88) 91 98.7 09/06/24 08:00 Room Air* 0 21 Total Intake and Output 09/05/24 09/05/24 09/06/24 15:00 23:00 07:00 Intake Total 400 ml 400 ml Balance 400 ml 400 ml medications Current Medications Medications Dose Ordered Sig/Rafael Route Start Time Stop Time Status Last Admin Dose Admin Sodium Chloride 1,000 ml @ 60 mls/hr [id number] IV 08/26/24 18:30 09/06/24 04:30 60 MLS/HR Acetaminophen 650 mg Q6HP PRN PO 08/26/24 18:30 08/30/24 10:31 650 MG Aspirin 81 mg DAILY PO 08/28/24 10:00 09/06/24 10:11 81 MG Al Hydrox/Mg Hydrox/Simethicone 30 ml Q8HR PO 08/27/24 22:00 09/06/24 15:01 30 ML Polyethylene Glycol 17 gm DAILY PO 08/28/24 10:00 09/01/24 09:33 17 GM Metoclopramide HCl 5 mg Q8HR IV 08/29/24 22:00 09/06/24 15:01 5 MG Pantoprazole Sodium 40 mg BID IV 09/02/24 22:00 09/06/24 10:11 40 MG Sucralfate 1 gm QID@0600,1130,1700,2200 PO 09/02/24 17:00 09/06/24 18:09 1 GM Sertraline HCl 75 mg DAILY PO 09/05/24 10:00 09/06/24 10:12 75 MG Enoxaparin Sodium 40 mg DAILY SC 09/05/24 10:00 09/06/24 10:12 40 MG objective Alert, oriented x3 PERRLA Obese Clear breath sounds bilaterally S1-S2 regular rate and rhythm no murmur Abdomen distended, tender to palpation, no rebound no guarding Moving all four extremities No lower extremity edema laboratory and microbiology Laboratory Tests 09/02/24 05:01 Test 09/02/24 05:01 Range/Units Serum Glucose 92 74-106 mg/dL Problems(with codes): (1) Suicidal ideation (2) Depression (3) Hiatal hernia with gastroesophageal reflux disease and esophagitis (4) Cholelithiasis (5) Atypical chest pain (6) Hepatic steatosis Prognosis Plan Protonix 40 mg p.o. twice a day Carafate 1 g p.o. twice a day Lifestyle and dietary modifications for GERD Advance slowly as tolerated No further GI workup at this time Outpatient follow up with GI Services as needed Patient's liver enzymes are normal and there was no evidence of acute cholecystitis Dietary Evaluation Review Comments: 1) Consider a Cardiac diet 2) Continue current plan of care Expected Outcomes/Goals: 1) F/U in 3-5 days Plan discussed with: Other (None) EVELIA MORATAYA MD Sep 06, 2024 20:42
[2024-09-06 21:00] VITALS: BP 115/64; PULSE 58; RESP 20; TEMP 97.8; O2SAT 98
[2024-09-07] VITALS (8 sets, daily range): BP systolic 108–139; BP diastolic 48–69; PULSE 54–80; RESP 17–20; TEMP 97.8–98.5; O2SAT 92–98
--- NOTE | 2024-09-07 11:39 | DVHINCON2 ---
Date of service: Sep 07, 2024 Family History: FH: AR (myocardial infarction) G8 FATHER, Allergies: Coded Allergies: NO KNOWN ALLERGIES (Unverified , 08/26/24) Home Meds Active Scripts Sucralfate (CARAFATE SUSP) 1 Gm/10 Ml Ss, 10 ML PO QID for 30 Days, #1200 ML 3 Refills Prov:PATTY TABARES MD 09/03/24 Metoclopramide Hcl (Reglan) 5 Mg Tab, 5 MG PO Q8HPRN PRN for 10 Days, #30 TAB Prov:PATTY TABARES MD 09/03/24 Pantoprazole Sodium Sesquihydr (Protonix) 40 Mg Tab, 40 MG PO BID for 30 Days, #60 TAB Prov:PATTY TABARES MD 09/03/24 Reported Medications Lidocaine (Ztlido) 1.8 % Pad, 1 PAD TOP DAILY for 30 Days, #30 08/27/24 Rosuvastatin Calcium (Crestor) 20 Mg Tab, 1 TAB PO DAILY for 30 Days, #30 08/27/24 Aspirin (Aspirin Low Dose) 81 Mg Chw, 1 TAB PO DAILY for 30 Days, #30 08/27/24 Aripiprazole (Abilify) 2 Mg Tab, 1 TAB PO DAILY for 30 Days, #30 08/27/24 Sertraline Hcl (Sertraline Hcl) 50 Mg Tab, 1 TAB PO DAILY for 30 Days, #30 08/27/24 Metoprolol Succinate (Metoprolol Succinate Er) 25 Mg Tab, 1 TAB PO DAILY for 30 Days, #30 08/27/24 Current Medications Current Medications Medications (Trade) Dose Ordered Sig/Rafael Route PRN Reason Start Time Stop Time Status Last Admin Docusate Sodium (Colace Capsule) 100 mg BID PO 09/07/24 22:00 Vital Signs Vital Signs Date Time Temp Pulse Resp B/P (MAP) Pulse Ox O2 Delivery O2 Flow Rate FiO2 09/07/24 09:00 98.2 80 20 109/48 (68) 94 98.2 09/06/24 20:00 Room Air* 0 21 Labs/Diagnostic Data Labs Test 09/02/24 05:01 08/29/24 08:38 08/27/24 06:34 08/26/24 14:40 Range/Units White Blood Count 5.3 4.4-10.8 10^3/uL Red Blood Count 4.79 4.0-5.20 10^6/uL Hemoglobin 15.3 12.2-16.2 g/dL Hematocrit 44.1 36.0-46.0 % Mean Corpuscular Volume 92.1 80.0-100.0 fL Mean Corpuscular Hemoglobin 31.9 28.0-32.0 pg Mean Corpuscular Hemoglobin Concent 34.6 32.0-36.0 g/dL Red Cell Distribution Width 12.7 11.8-14.3 % Platelet Count 190 140-450 10^3/uL Mean Platelet Volume 9.8 6.9-10.8 fL Neutrophils (%) (Auto) 61.6 37.0-80.0 % Lymphocytes (%) (Auto) 24.7 10.0-50.0 % Monocytes (%) (Auto) 9.1 0.0-12.0 % Eosinophils (%) (Auto) 3.8 0.0-7.0 % Basophils (%) (Auto) 0.8 0.0-2.0 % Neutrophils # (Auto) 3.3 1.6-8.6 10 ^3/uL Lymphocytes # (Auto) 1.3 0.4-5.4 10 ^3/uL Monocytes # (Auto) 0.5 0-1.3 10 ^3/uL Eosinophils # (Auto) 0.2 0-0.8 10 ^3/uL Basophils # (Auto) 0 0-0.2 10 ^3/uL Nucleated Red Blood Cells 0.2 % Sodium Level 143 136-145 mmol/L Potassium Level 3.6 3.5-5.1 mmol/L Chloride Level 107 98-107 mmol/L Carbon Dioxide Level 26 20-31 mmol/L Anion Gap 10 5-15 Blood Urea Nitrogen 9 9-23 mg/dL Creatinine 0.84 0.550-1.02 mg/dL Glomerular Filtration Rate Calc 80 >90 mL/min BUN/Creatinine Ratio 10.7 10.0-20.0 Serum Glucose 92 74-106 mg/dL Calcium Level 9.5 8.7-10.4 mg/dL Total Bilirubin 0.7 0.2-1.0 mg/dL Aspartate Amino Transferase (AST) 14 13-40 U/L Alanine Aminotransferase (ALT) 15 7-40 U/L Alkaline Phosphatase 81 46-116 U/L Total Protein 6.4 5.7-8.2 g/dL Albumin 3.9 3.2-4.8 g/dL Urine Color Yellow Yellow Urine Clarity Clear Clear Urine pH 5.5 5.0-9.0 Urine Specific [place] 1.017 1.001-1.035 Urine Protein Negative Negative Urine Ketones 1+ H Negative Urine Blood Trace H Negative /uL Urine Nitrite Negative Negative Urine Bilirubin Negative Negative Urine Urobilinogen Normal Negative mg/dL Urine Leukocyte Esterase 1+ Negative /uL Urine RBC 1 0 - 4 /hpf Urine WBC 6 0 - 5 /hpf Urine Squamous Epithelial Cells Few <5 /hpf Urine Bacteria Few H None Seen /hpf Urine Glucose Normal Normal mg/dL Urine Opiates Screen Neg NEGATIVE Urine Fentanyl Screen Neg NEGATIVE Urine Barbiturates Screen Neg NEGATIVE Urine Phencyclidine Screen Neg NEGATIVE Urine Amphetamines Screen Neg NEGATIVE Urine Benzodiazepines Screen Neg NEGATIVE Urine Cocaine Screen Neg NEGATIVE Urine Cannabinoids Screen Neg NEGATIVE Hepatitis B Surface Antibody Negative Negative Troponin I High Sensitivity < 3 L </=34 ng/L Lipase 31 12-53 U/L Assessment [id number] UPPER ABD PAIN R/O ACID REFLUX, GERD CHOLELITHIASIS NO SBO MANAGE CONSERVATIVELY CONSIDER GB SURGERY OUTPT IF INDICATED THYROID MASS EVAL OUTPT GERD PER GI EVAL Plan discussed with: Patient JENNA MORATAYA MD Sep 07, 2024 11:39
[2024-09-07] MEDS: DOCUSATE SOD 100 MG CAP PO ONE (11:56)
--- NOTE | 2024-09-07 12:28 | DVHINCON2 ---
DATE OF CONSULTATION: 09/07/2024 HISTORY OF PRESENT ILLNESS: This patient is 59 years old, coming in with epigastric upper abdominal pain and she had the evaluation by GI and they suspected GERD and she also had an investigation done. Ultrasound shows cholelithiasis, but no active inflammation. CAT scan is also negative. Gastrografin study done that was negative for bowel obstruction and she appears to have history of constipation. No hematemesis, melena. No bleeding per rectum. PAST SURGICAL HISTORY: Hernia repair done, thyroid mass, evaluation ongoing. PHYSICAL EXAMINATION: VITAL SIGNS: Afebrile, stable signs. HEENT: With no evidence of pallor, cyanosis, or jaundice. NECK: Supple, nontender with no thyromegaly or lymphadenopathy. CHEST AND LUNGS: Clear. HEART: Within normal limits. ABDOMEN: Soft. She is minimally tender in the epigastric region. No rebound. She does not have a recurrent abdominal hernia. She does not have an acute abdomen that would necessitate acute surgical intervention. NEUROLOGIC: Not assessed. EXTREMITIES: Unremarkable. PLAN: Based upon the clinical impression, she does not have acute abdomen that would necessitate acute surgical intervention. Gallbladder surgery can be considered as an outpatient as indicated and she possibly has acid reflux that will be managed conservatively and with GI evaluation ongoing. MD PADMINI Jo/ISABELLA TID: [id number] RECEIPT: [id number] cc: Altaf Schaffer MD
--- NOTE | 2024-09-07 19:51 | DVHPN2 ---
Subjective c/o epigastric discomfort/denies any nausea or vomiting/awaiting transfer to ip psych Changes from previous H/P or p: No Changes Eyes: No Pain, No Vision change, No Conjunctivae inflammation, No Eyelid inflammation, No Other, No Redness ENT: No Ear pain, No Ear discharge, No Nose pain, No Nose discharge, No Nose congestion, No Mouth pain, No Mouth swelling, No Throat pain, No Throat swelling, No Other Cardiovascular: Chest Pain, Palpitations; No Orthopnea, No Paroxysmal Noc. Dyspnea, No Edema, No Lt Headedness, No Other Respiratory: No Cough, No Dry, No Shortness of breath, No SOB with excertion, No Wheezing, No Hemoptysis, No Pleuritic Pain, No Sputum, No Other Gastrointestinal: Nausea, Vomiting, Abdominal Pain; No Diarrhea, No Constipation, No Melena, No Hematochezia, No Other Genitourinary: No Dysuria, No Frequency, No Incontinence, No Hematuria, No Retention, No Other Musculoskeletal: No other, No neck pain, No shoulder pain, No arm pain, No back pain, No hand pain, No leg pain, No foot pain Skin: No Rash, No Lesions, No Jaundice, No Bruising, No Other Objective Vitals Vital Signs Date Time Temp Pulse Resp B/P (MAP) Pulse Ox O2 Delivery O2 Flow Rate FiO2 09/07/24 17:00 98.1 58 18 130/68 (88) 95 98.1 09/07/24 08:00 Room Air* 0 21 Intake/Output Intake and Output 09/07/24 07:00 Intake Total 1180 ml Output Total 700 ml Balance 480 ml Intake Oral 460 ml IV Total 720 ml Output Urine Total 700 ml # Voids 4 General Appearance: Alert, Oriented X3, Cooperative, No acute distress Lungs: Clear to auscultation Cardiovascular: Regular rate, Normal S1, Normal S2 Abdomen: Normal bowel sounds, Soft, No tenderness, No hepatospenomegaly Neuro: Normal gait, Normal speech, Strength at 5/5 X4 ext, Normal tone, S ensation intact, Cranial nerves 3-12 NL Psych/Mental Status: Mental status NL Medications Current Medications Medications Dose Ordered Sig/Rafael Route Start Time Stop Time Status Last Admin Dose Admin Sodium Chloride 1,000 ml @ 60 mls/hr [id number] IV 08/26/24 18:30 09/07/24 14:34 60 MLS/HR Acetaminophen 650 mg Q6HP PRN PO 08/26/24 18:30 08/30/24 10:31 650 MG Aspirin 81 mg DAILY PO 08/28/24 10:00 09/07/24 08:23 81 MG Al Hydrox/Mg Hydrox/Simethicone 30 ml Q8HR PO 08/27/24 22:00 09/07/24 14:34 30 ML Polyethylene Glycol 17 gm DAILY PO 08/28/24 10:00 09/01/24 09:33 17 GM Metoclopramide HCl 5 mg Q8HR IV 08/29/24 22:00 09/07/24 14:34 5 MG Pantoprazole Sodium 40 mg BID IV 09/02/24 22:00 09/07/24 08:23 40 MG Sucralfate 1 gm QID@0600,1130,1700,2200 PO 09/02/24 17:00 09/07/24 17:44 1 GM Sertraline HCl 75 mg DAILY PO 09/05/24 10:00 09/07/24 08:24 75 MG Enoxaparin Sodium 40 mg DAILY SC 09/05/24 10:00 09/07/24 08:24 40 MG Docusate Sodium 100 mg BID PO 09/07/24 22:00 Laboratory Results Laboratory Tests 09/02/24 05:01 Urinalysis Test 08/29/24 08:38 Urine Color Yellow (Yellow) Urine Clarity Clear (Clear) Urine pH 5.5 (5.0-9.0) Urine Specific [place] 1.017 (1.001-1.035) Urine Protein Negative (Negative) Urine Ketones 1+ (Negative) H Urine Blood Trace /uL (Negative) H Urine Nitrite Negative (Negative) Urine Bilirubin Negative (Negative) Urine Urobilinogen Normal mg/dL (Negative) Urine Leukocyte Esterase 1+ /uL (Negative) Urine RBC 1 /hpf (0 - 4) Urine WBC 6 /hpf (0 - 5) Urine Squamous Epithelial Cells Few /hpf (<5) Urine Bacteria Few /hpf (None Seen) H Urine Glucose Normal mg/dL (Normal) Labs and/or images reviewed: Labs reviewed by me, Image(s) reviewed by me Assessment/Plan Assessment/Plan gastritis on ppi cholelithiasis- check hida depression with suicidal thoughts- awaiting transfer to psych Plan discussed with: Patient, Other My Orders Orders - ZION BONNER MD Procedure Category Date Status Time Docusate Sodium PHA 09/07/24 In Process Capsule (Colace 22:00 Nm Hida Scan NM 09/07/24 Logged 11:09 * Surgical Consult CONS 09/07/24 Transmitted 11:18 Date of Service: Sep 07, 2024 Billing Provider: ZION BONNER MD Common Visit Codes: [id number] INP/OBS CARE(MOD) ZION BONNER MD Sep 07, 2024 19:51
[2024-09-07] MEDS: PANTOPRAZOLE 40 MG/10 ML VIAL INJ IV SCH (21:42)
[2024-09-07] MEDS: DOCUSATE SOD 100 MG CAP PO SCH (21:42)
--- NOTE | 2024-09-07 23:51 | DVHPN2 ---
Progress Note - Dictate Date Seen: Sep 07, 2024 Medical Necessity Reason Pt with a Central, PICC or Fol: No Subjective Patient is sleeping comfortably No new complaints Discharge planning was in progress however the patient reported suicidal thoughts She has been seen by tele psych consult Patient is requesting upon entry transferred to a psych hospital vital signs Vital Sign Date Time Temp Pulse Resp B/P (MAP) Pulse Ox O2 Delivery O2 Flow Rate FiO2 09/07/24 20:54 98.5 54 17 139/68 (91) 92 98.5 09/07/24 20:00 Room Air* 0 21 Total Intake and Output 09/06/24 09/06/24 09/07/24 15:00 23:00 07:00 Intake Total 100 ml 1080 ml Output Total 700 ml Balance 100 ml 380 ml medications Current Medications Medications Dose Ordered Sig/Rafael Route Start Time Stop Time Status Last Admin Dose Admin Acetaminophen 650 mg Q6HP PRN PO 08/26/24 18:30 08/30/24 10:31 650 MG Aspirin 81 mg DAILY PO 08/28/24 10:00 09/07/24 08:23 81 MG Polyethylene Glycol 17 gm DAILY PO 08/28/24 10:00 09/01/24 09:33 17 GM Sucralfate 1 gm QID@0600,1130,1700,2200 PO 09/02/24 17:00 09/07/24 21:42 1 GM Sertraline HCl 75 mg DAILY PO 09/05/24 10:00 09/07/24 08:24 75 MG Enoxaparin Sodium 40 mg DAILY SC 09/05/24 10:00 09/07/24 08:24 40 MG Docusate Sodium 100 mg BID PO 09/07/24 22:00 09/07/24 21:42 100 MG Pantoprazole Sodium 40 mg BID IV 09/07/24 22:00 09/07/24 21:42 40 MG objective Alert, oriented x3 PERRLA Obese Clear breath sounds bilaterally S1-S2 regular rate and rhythm no murmur Abdomen distended, tender to palpation, no rebound no guarding Moving all four extremities No lower extremity edema laboratory and microbiology Laboratory Tests 09/02/24 05:01 Test 09/02/24 05:01 Range/Units Serum Glucose 92 74-106 mg/dL Problems(with codes): (1) Suicidal ideation (2) Depression (3) Hiatal hernia with gastroesophageal reflux disease and esophagitis (4) Cholelithiasis (5) Atypical chest pain (6) Hepatic steatosis (7) Dysphagia Prognosis PLAN Gastritis on ppi cholelithiasis- check hida depression with suicidal thoughts- awaiting transfer to psych Surgical consult appreciated No indication for urgent surgery Dietary Evaluation Review Comments: 1) Consider a Cardiac diet 2) Continue current plan of care Expected Outcomes/Goals: 1) F/U in 3-5 days Plan discussed with: Other (Dr Dedrick Barnes) EVELIA BARNES MD Sep 07, 2024 23:51
[2024-09-08 04:57] VITALS: BP 126/58; PULSE 60; RESP 16; TEMP 97.7; O2SAT 92
[2024-09-08 08:00] VITALS: RESP 18; O2SAT 95
--- NOTE | 2024-09-08 08:17 | DVHPN2 ---
Assessment/Plan Assessment/Plan Progress note Subjective 59-year-old female admitted for chest pain, found to have cholelithiasis and right upper quadrant pain possibly related. seen by GI, s/p scans and EGD. medically stable to discharge, patient refusing to escalate diet, discussed with GI and she is cleared, however on discharge she reported suicidal thoughts. Patient seen by me today during rounds surgery consult appreciated, for conservative management at this time per GI and surgery, pending transfer to inpatient psych. adding supplement Objective Physical exam Alert, oriented x3 PERRLA Obese Clear breath sounds bilaterally S1-S2 regular rate and rhythm no murmur Abdomen distended, tender to palpation, no rebound no guarding Moving all four extremities No lower extremity edema Lab Troponin negative Lipase negative Hemoglobin 17 EKG NSR Imaging Right upper quadrant ultrasound with cholelithiasis Nonobs nephrolithiasis No AAA, ascites EGD 2-3 cm sliding-type hiatal hernia with grade B linear erosive esophagitis and distal esophageal ulcerations; no stricture or obstruct Mild to moderate gastroduodenitis Assessment and plan Abdominal pain Chest pain likely referred from above Cholelithiasis without cholecystitis URI ruled out dysphagia Suicidal ideation possible malingering reglan protonix maalox Advance diet as tolerated IV fluid No antibiotic at this moment GI consult appreciated s/p scope surgery consult appreciated advance diet as tolerated sitter for safety tele spych appreciated elopement precaution ensure voluntary transfer to acute inp psych Replete electrolytes Diet soft DVT prophylaxis lovenox Plan discussed with: Patient Date of Service: Sep 08, 2024 Billing Provider: PATTY TABARES MD Common Visit Codes: [id number] INP/OBS CARE(MOD) PATTY TABARES MD Sep 08, 2024 08:17
[2024-09-08 09:00] VITALS: BP 117/57; PULSE 66; RESP 19; TEMP 97.4; O2SAT 93
[2024-09-08] MEDS: Ensure HIGH Protein Chocolate 8oz Bottle PO SCH (12:00)
[2024-09-08 13:00] VITALS: BP 114/63; PULSE 63; RESP 19; TEMP 97.6; O2SAT 92
--- NOTE | 2024-09-08 14:57 | DVH ---
EXAM: NM NM HIDA SCAN HISTORY: abdominal pain COMPARISON: None TECHNIQUE: With IV injection of 5 mCi Tc-99m Choletec, anterior images were obtained to 60 minutes. A dditional images were obtained after IV injection of 1.7 micrograms CCK. Gallbladder ejection fractio n was calculated. FINDINGS: The hepatogram images are unremarkable. There is normal activity in the gallbladder and in the bowel ( on 4 hour delayed ). IMPRESSION: 1. No evidence of cystic duct or common bile duct obstruction.
[2024-09-08 20:00] VITALS: RESP 18; O2SAT 95
[2024-09-08 21:00] VITALS: BP 106/55; PULSE 68; RESP 18; TEMP 97.9; O2SAT 90
[2024-09-09 07:07] LABS: Potassium 3.5 mmol/L (3.5-5.1); Sodium 142 mmol/L (136-145)
[2024-09-09 07:08] LABS: Anion Gap 9 (5-15); Carbon Dioxide 26 mmol/L (20-31)
[2024-09-09 07:12] LABS: Basophils # (auto) 0 10 ^3/uL (0-0.2); Basophils % (auto) 0.9 % (0.0-2.0); Eosinophils # (auto) 0.2 10 ^3/uL (0-0.8); Eosinophils % (auto) 3.8 % (0.0-7.0); Hematocrit 44.8 % (36.0-46.0); Hemoglobin 15.6 g/dL (12.2-16.2); Lymphocytes # (auto) 1.4 10 ^3/uL (0.4-5.4); Lymphocytes % (auto) 26.7 % (10.0-50.0); Mean Corpuscular Hemoglobin 32.1 pg (28.0-32.0); Mean Corpuscular Hgb Conc. 34.7 g/dL (32.0-36.0); Mean Corpuscular Volume 92.3 fL (80.0-100.0); Monocytes # (auto) 0.6 10 ^3/uL (0-1.3); Monocytes % (auto) 12.2 % (0.0-12.0); Neutrophils # (auto) 2.9 10 ^3/uL (1.6-8.6); Neutrophils % (auto) 56.4 % (37.0-80.0); Nucleated Red Blood Cells % 0.2 %; Platelet Count (auto) 184 10^3/uL (140-450); Red Blood Cells 4.85 10^6/uL (4.0-5.20); Red Cell Distribution Width 12.9 % (11.8-14.3); White Blood Cell 5.2 10^3/uL (4.4-10.8)
[2024-09-09 07:13] LABS: Blood Urea Nitrogen 18 mg/dL (9-23); Glucose 103 mg/dL (74-106)
[2024-09-09 07:15] LABS: Chloride 107 mmol/L (98-107)
[2024-09-09 08:00] VITALS: O2SAT 95
[2024-09-09 09:00] VITALS: BP 97/68; PULSE 66; RESP 18; TEMP 97.4; O2SAT 94
--- NOTE | 2024-09-09 12:10 | DVHPN2 ---
Assessment/Plan Assessment/Plan Progress note Subjective 59-year-old female admitted for chest pain, found to have cholelithiasis and right upper quadrant pain possibly related. seen by GI, s/p scans and EGD. medically stable to discharge, patient refusing to escalate diet, discussed with GI and she is cleared, however on discharge she reported suicidal thoughts. Patient seen by me today during rounds able to tolerate oral intake, will get psych reeval Objective Physical exam Alert, oriented x3 PERRLA Obese Clear breath sounds bilaterally S1-S2 regular rate and rhythm no murmur Abdomen distended, tender to palpation, no rebound no guarding Moving all four extremities No lower extremity edema Lab Troponin negative Lipase negative Hemoglobin 17 EKG NSR Imaging Right upper quadrant ultrasound with cholelithiasis Nonobs nephrolithiasis No AAA, ascites EGD 2-3 cm sliding-type hiatal hernia with grade B linear erosive esophagitis and distal esophageal ulcerations; no stricture or obstruct Mild to moderate gastroduodenitis Assessment and plan Abdominal pain Chest pain likely referred from above Cholelithiasis without cholecystitis URI ruled out dysphagia Suicidal ideation possible malingering reglan protonix maalox Advance diet as tolerated IV fluid No antibiotic at this moment GI consult appreciated s/p scope surgery consult appreciated advance diet as tolerated sitter for safety tele spych appreciated elopement precaution ensure voluntary transfer to acute inp psych encourage ambulation, OOBTC Replete electrolytes Diet soft DVT prophylaxis lovenox Plan discussed with: Patient My Orders Orders - PATTY TABARES MD Procedure Category Date Status Time Polyethylene Glycol PHA 09/09/24 In Process 17g Powder (Miralax 11:15 *Tele Psych Consult CONS 09/09/24 Transmitted 11:07 Date of Service: Sep 09, 2024 Billing Provider: PATTY TABARES MD Common Visit Codes: [id number] INP/OBS CARE(MOD) PATTY TABARES MD Sep 09, 2024 12:10
[2024-09-09 13:00] VITALS: BP 90/50; PULSE 67; RESP 17; TEMP 97.2; O2SAT 95
[2024-09-09] MEDS: POLYETHYLENE GLYCOL 17 GM PWDR PO PRN (13:55)
--- NOTE | 2024-09-09 15:54 | DVHPN2 ---
Progress Note - Dictate Date Seen: Sep 09, 2024 Medical Necessity Reason Pt with a Central, PICC or Fol: No Subjective Patient is sleeping comfortably No new complaints Tolerating diet HIDA scan was negative Surgical consult appreciated vital signs Vital Sign Date Time Temp Pulse Resp B/P (MAP) Pulse Ox O2 Delivery O2 Flow Rate FiO2 09/09/24 13:00 97.2 67 17 90/50 (63) 95 97.2 09/09/24 08:00 Room Air* 0 21 Total Intake and Output 09/08/24 09/08/24 09/09/24 15:00 23:00 07:00 Intake Total 340 ml 550 ml Balance 340 ml 550 ml medications Current Medications Medications Dose Ordered Sig/Rafael Route Start Time Stop Time Status Last Admin Dose Admin Acetaminophen 650 mg Q6HP PRN PO 08/26/24 18:30 09/09/24 09:07 650 MG Aspirin 81 mg DAILY PO 08/28/24 10:00 09/09/24 09:00 81 MG Polyethylene Glycol 17 gm DAILY PO 08/28/24 10:00 09/09/24 09:00 17 GM Sucralfate 1 gm QID@0600,1130,1700,2200 PO 09/02/24 17:00 09/09/24 11:41 1 GM Sertraline HCl 75 mg DAILY PO 09/05/24 10:00 09/09/24 09:00 75 MG Enoxaparin Sodium 40 mg DAILY SC 09/05/24 10:00 09/09/24 09:00 40 MG Pantoprazole Sodium 40 mg BID IV 09/07/24 22:00 09/09/24 09:01 40 MG Enteral Nutritional Formula 240 ml TIDWM PO 09/08/24 12:00 09/09/24 12:00 240 ML Polyethylene Glycol 17 gm DAILYPRN PRN PO 09/09/24 11:15 09/09/24 13:55 17 GM objective Alert, oriented x3 PERRLA Obese Clear breath sounds bilaterally S1-S2 regular rate and rhythm no murmur Abdomen distended, tender to palpation, no rebound no guarding Moving all four extremities No lower extremity edema laboratory and microbiology Laboratory Tests 09/09/24 05:33 Test 09/09/24 05:33 Range/Units Serum Glucose 103 74-106 mg/dL Problems(with codes): (1) Suicidal ideation (2) Depression (3) Hiatal hernia with gastroesophageal reflux disease and esophagitis (4) Cholelithiasis (5) Atypical chest pain (6) Hepatic steatosis (7) Dysphagia Prognosis Plan Continue Protonix and Carafate Discharge planning as per hospitalist Awaiting psych re-evaluation Dietary Evaluation Review Comments: 1) Consider a Cardiac diet 2) Continue current plan of care Expected Outcomes/Goals: 1) F/U in 3-5 days Plan discussed with: Patient EVELIA MORATAYA MD Sep 09, 2024 15:54
[2024-09-09 16:55] VITALS: BP 93/60; PULSE 91; RESP 17; TEMP 97.7; O2SAT 91
[2024-09-09 20:00] VITALS: PULSE 65; RESP 16; O2SAT 91
[2024-09-09 21:00] VITALS: BP 90/51; PULSE 65; RESP 16; TEMP 97.8; O2SAT 91
[2024-09-10 05:00] VITALS: BP 95/70; PULSE 69; RESP 18; TEMP 97.7; O2SAT 90
[2024-09-10 08:00] VITALS: PULSE 74; RESP 18; O2SAT 94
--- NOTE | 2024-09-10 08:38 | DVHPN2 ---
Assessment/Plan Assessment/Plan Progress note Subjective 59-year-old female admitted for chest pain, found to have cholelithiasis and right upper quadrant pain possibly related. seen by GI, s/p scans and EGD. medically stable to discharge, patient refusing to escalate diet, discussed with GI and she is cleared, however on discharge she reported suicidal thoughts. now pending voluntary transfer to inpatient psych Patient seen by me today during rounds pending tele psych reeval, patient still feels the same and with on and off SI with plan. able to eat Objective Physical exam Alert, oriented x3 PERRLA Obese Clear breath sounds bilaterally S1-S2 regular rate and rhythm no murmur Abdomen distended, tender to palpation, no rebound no guarding Moving all four extremities No lower extremity edema Lab Troponin negative Lipase negative Hemoglobin 17 EKG NSR Imaging Right upper quadrant ultrasound with cholelithiasis Nonobs nephrolithiasis No AAA, ascites EGD 2-3 cm sliding-type hiatal hernia with grade B linear erosive esophagitis and distal esophageal ulcerations; no stricture or obstruct Mild to moderate gastroduodenitis Assessment and plan Abdominal pain Chest pain likely referred from above Cholelithiasis without cholecystitis URI ruled out dysphagia Suicidal ideation possible malingering reglan protonix maalox Advance diet as tolerated IV fluid No antibiotic at this moment GI consult appreciated s/p scope surgery consult appreciated advance diet as tolerated sitter for safety tele spych appreciated elopement precaution ensure voluntary transfer to acute inp psych encourage ambulation, OOBTC pending psych reeval Replete electrolytes Diet soft DVT prophylaxis lovenox Plan discussed with: Patient My Orders Orders - PATTY TABARES MD Procedure Category Date Status Time Polyethylene Glycol PHA 09/09/24 In Process 17g Powder (Miralax 11:15 *Tele Psych Consult CONS 09/09/24 Transmitted 11:07 Date of Service: Sep 10, 2024 Billing Provider: PATTY TABARES MD Common Visit Codes: [id number] INP/OBS CARE(MOD) PATTY TABARES MD Sep 10, 2024 08:38
[2024-09-10 09:00] VITALS: BP 101/67; PULSE 74; RESP 18; TEMP 97.6; O2SAT 94
[2024-09-10 13:00] VITALS: BP 98/68; PULSE 66; RESP 16; TEMP 98.4; O2SAT 93
[2024-09-10 17:05] VITALS: BP 97/56; PULSE 60; RESP 18; TEMP 97.8; O2SAT 90
[2024-09-10 21:00] VITALS: BP 110/67; PULSE 68; RESP 18; TEMP 98.2; O2SAT 91
[2024-09-11 01:00] VITALS: BP 107/65; PULSE 67; RESP 18; TEMP 98; O2SAT 93
[2024-09-11 05:00] VITALS: BP 98/68; PULSE 72; RESP 19; TEMP 97.6; O2SAT 98
[2024-09-11 08:45] VITALS: BP 111/64; PULSE 72; RESP 18; TEMP 98.1; O2SAT 90
[2024-09-11 12:33] VITALS: BP 106/62; PULSE 71; RESP 18; TEMP 97.8; O2SAT 91
--- NOTE | 2024-09-11 13:08 | DVHPN2 ---
Assessment/Plan Assessment/Plan Progress note Subjective 59-year-old female admitted for chest pain, found to have cholelithiasis and right upper quadrant pain possibly related. seen by GI, s/p scans and EGD. medically stable to discharge, patient refusing to escalate diet, discussed with GI and she is cleared, however on discharge she reported suicidal thoughts. now pending voluntary transfer to inpatient psych Patient seen by me today during rounds reconsult tele psych for reeval Objective Physical exam Alert, oriented x3 PERRLA Obese Clear breath sounds bilaterally S1-S2 regular rate and rhythm no murmur Abdomen distended, tender to palpation, no rebound no guarding Moving all four extremities No lower extremity edema Lab Troponin negative Lipase negative Hemoglobin 17 EKG NSR Imaging Right upper quadrant ultrasound with cholelithiasis Nonobs nephrolithiasis No AAA, ascites EGD 2-3 cm sliding-type hiatal hernia with grade B linear erosive esophagitis and distal esophageal ulcerations; no stricture or obstruct Mild to moderate gastroduodenitis Assessment and plan Abdominal pain Chest pain likely referred from above Cholelithiasis without cholecystitis URI ruled out dysphagia Suicidal ideation possible malingering reglan protonix maalox Advance diet as tolerated IV fluid No antibiotic at this moment GI consult appreciated s/p scope surgery consult appreciated advance diet as tolerated sitter for safety tele spych appreciated elopement precaution ensure voluntary transfer to acute inp psych encourage ambulation, OOBTC pending psych reeval Replete electrolytes Diet soft DVT prophylaxis lovenox Plan discussed with: Patient My Orders Orders - PATTY TABARES MD Procedure Category Date Status Time *Tele Psych Consult CONS 09/11/24 Transmitted 09:08 Date of Service: Sep 11, 2024 Billing Provider: PATTY TABARES MD Common Visit Codes: [id number] INP/OBS CARE(MOD) PATTY TABARES MD Sep 11, 2024 13:08
--- NOTE | 2024-09-11 13:35 | DVHINCON2 ---
Date of Service if different f: Sep 11, 2024 Consultation (NAVARRE) Labs Laboratory Tests Test 08/26/24 14:40 08/27/24 06:34 08/29/24 08:38 09/02/24 05:01 Troponin I High Sensitivity < 3 ng/L (</=34) Lipase 31 U/L (12-53) Hepatitis B Surface Antibody Negative (Negative) Urine Color Yellow (Yellow) Urine Clarity Clear (Clear) Urine pH 5.5 (5.0-9.0) Urine Specific [place] 1.017 (1.001-1.035) Urine Protein Negative (Negative) Urine Ketones 1+ (Negative) Urine Blood Trace /uL (Negative) Urine Nitrite Negative (Negative) Urine Bilirubin Negative (Negative) Urine Urobilinogen Normal mg/dL (Negative) Urine Leukocyte Esterase 1+ /uL (Negative) Urine RBC 1 /hpf (0 - 4) Urine WBC 6 /hpf (0 - 5) Urine Squamous Epithelial Cells Few /hpf (<5) Urine Bacteria Few /hpf (None Seen) Urine Glucose Normal mg/dL (Normal) Urine Opiates Screen Neg (NEGATIVE) Urine Fentanyl Screen Neg (NEGATIVE) Urine Barbiturates Screen Neg (NEGATIVE) Urine Phencyclidine Screen Neg (NEGATIVE) Urine Amphetamines Screen Neg (NEGATIVE) Urine Benzodiazepines Screen Neg (NEGATIVE) Urine Cocaine Screen Neg (NEGATIVE) Urine Cannabinoids Screen Neg (NEGATIVE) Total Bilirubin 0.7 mg/dL (0.2-1.0) Aspartate Amino Transf (AST/SGOT) 14 U/L (13-40) Alanine Aminotransferase (ALT/SGPT) 15 U/L (7-40) Alkaline Phosphatase 81 U/L (46-116) Total Protein 6.4 g/dL (5.7-8.2) Albumin 3.9 g/dL (3.2-4.8) Test 09/09/24 05:33 White Blood Count 5.2 10^3/uL (4.4-10.8) Red Blood Count 4.85 10^6/uL (4.0-5.20) Hemoglobin 15.6 g/dL (12.2-16.2) Hematocrit 44.8 % (36.0-46.0) Mean Corpuscular Volume 92.3 fL (80.0-100.0) Mean Corpuscular Hemoglobin 32.1 pg (28.0-32.0) Mean Corpuscular Hemoglobin Concent 34.7 g/dL (32.0-36.0) Red Cell Distribution Width 12.9 % (11.8-14.3) Platelet Count 184 10^3/uL (140-450) Mean Platelet Volume 10.0 fL (6.9-10.8) Neutrophils (%) (Auto) 56.4 % (37.0-80.0) Lymphocytes (%) (Auto) 26.7 % (10.0-50.0) Monocytes (%) (Auto) 12.2 % (0.0-12.0) Eosinophils (%) (Auto) 3.8 % (0.0-7.0) Basophils (%) (Auto) 0.9 % (0.0-2.0) Neutrophils # (Auto) 2.9 10 ^3/uL (1.6-8.6) Lymphocytes # (Auto) 1.4 10 ^3/uL (0.4-5.4) Monocytes # (Auto) 0.6 10 ^3/uL (0-1.3) Eosinophils # (Auto) 0.2 10 ^3/uL (0-0.8) Basophils # (Auto) 0 10 ^3/uL (0-0.2) Nucleated Red Blood Cells 0.2 % Sodium Level 142 mmol/L (136-145) Potassium Level 3.5 mmol/L (3.5-5.1) Chloride Level 107 mmol/L (98-107) Carbon Dioxide Level 26 mmol/L (20-31) Anion Gap 9 (5-15) Blood Urea Nitrogen 18 mg/dL (9-23) Creatinine 0.72 mg/dL (0.550-1.02) Glomerular Filtration Rate Calc 96 mL/min (>90) BUN/Creatinine Ratio 25.0 (10.0-20.0) Serum Glucose 103 mg/dL (74-106) Calcium Level 10.0 mg/dL (8.7-10.4) Appetite: Fair Appearance: Stated age Psychomotor activity: WNL Behavioral: Cooperative Eye contact: Appropriate Speech: WNL Affect: Inappropriate to mood Mood: Depressed Thought processes: Linear/Goal-directed Thought content: WNL Suicidal ideations: Present (active) Orientation: Person, Place, Time, Situation Memory intact: Recent Intellect: Average Abstractability: WNL Concentration: Adequate Attention: Adequate Judgement: Poor Insight: Poor Vitals Vital Signs Date Time Temp Pulse Resp B/P (MAP) Pulse Ox O2 Delivery O2 Flow Rate FiO2 09/11/24 12:33 97.8 71 18 106/62 (77) 91 97.8 09/10/24 20:00 Room Air* 0 21 Current medications Current Medications Medications Dose Ordered Sig/Rafael Route Start Time Stop Time Status Last Admin Dose Admin Acetaminophen 650 mg Q6HP PRN PO 08/26/24 18:30 09/10/24 22:02 650 MG Aspirin 81 mg DAILY PO 08/28/24 10:00 09/11/24 10:09 81 MG Polyethylene Glycol 17 gm DAILY PO 08/28/24 10:00 09/11/24 10:08 17 GM Sucralfate 1 gm QID@0600,1130,1700,2200 PO 09/02/24 17:00 09/11/24 10:07 1 GM Sertraline HCl 75 mg DAILY PO 09/05/24 10:00 09/11/24 10:10 75 MG Enoxaparin Sodium 40 mg DAILY SC 09/05/24 10:00 09/11/24 10:08 40 MG Pantoprazole Sodium 40 mg BID IV 09/07/24 22:00 09/11/24 10:07 40 MG Enteral Nutritional Formula 240 ml TIDWM PO 09/08/24 12:00 09/11/24 08:00 240 ML Polyethylene Glycol 17 gm DAILYPRN PRN PO 09/09/24 11:15 09/09/24 13:55 17 GM Medication adjusted: Yes Diagnosis: Unspecified mood disorder, unspecified psychosis Plan : Pt is reporting suicidal ideation she agrees to go voluntary Please transfer pt vol to psychiatric hospital recommend to continue sertraline 75mg. Abilify is not available History of Present Illness Reason for Consult : Re-evaluation and Abilify unavailable Reason for Consult : continues to endorse suicidal ideation and no available inpatient beds HPI : This is a 59-year-old female with hx of depression and anxiety, presented to ED for abdominal pain. Patient had initial telepsychiatry evaluation on 09/04/24 with recommendation for vol inpatient transfer . On evaluation today, pt reports feeling suicidal after her admission to the hospital. She reports frequent suicidal ideation and plan to cut her wrist or run into traffic. She feels like she no longer wants to live. She denies homicidal thoughts. She denies auditory/visual hallucinations. She does have paranoia that other unknown people want to harm her. Her sleep is variable. She reports appetite is usually good. Asked if patient can provide phone number to talk with family, she declines saying she does not talk to her family. Past Psychiatric History : She reports prior psych admissions and holds, last, earlier this year at [facility]. She reports prior suicide attempt with cutting her wrist and OD on pills. She is receiving sertraline 75mg here. She hx of Abilify 2mg, not available here per report. She has not followed up with psychiatrist x 2 months and cannot recall his name. Past Medical History : Hx of HTN, hypotension, Obesity, scoliosis Social History : She is not . Reports having children but does not talk with them. She reports living with roommate and in a friend's home until she can find own apartment. She does say she likes current arrangement and able to return there after discharge. She reports not having to pay rent to friend. She receives SSI for medical disability. She was using meth for yrs now sober x 3 years. She denies other substances including alcohol and cigarette. She denies any known family history. DONNA POST DNP Sep 11, 2024 13:35
[2024-09-11 16:33] VITALS: BP 108/64; PULSE 66; RESP 19; TEMP 98.1; O2SAT 94
[2024-09-11 21:00] VITALS: BP 90/60; PULSE 69; RESP 18; TEMP 98.8; O2SAT 91
[2024-09-12] VITALS (8 sets, daily range): BP systolic 93–114; BP diastolic 52–67; PULSE 57–75; RESP 16–20; TEMP 97.5–98.3; O2SAT 91–100
--- NOTE | 2024-09-12 16:15 | DVHPN2 ---
Assessment/Plan Assessment/Plan Progress note Subjective 59-year-old female admitted for chest pain, found to have cholelithiasis and right upper quadrant pain possibly related. seen by GI, s/p scans and EGD. medically stable to discharge, patient refusing to escalate diet, discussed with GI and she is cleared, however on discharge she reported suicidal thoughts. now pending voluntary transfer to inpatient psych Patient seen by me today during rounds NAEON, pending psych transfer Objective Physical exam Alert, oriented x3 PERRLA Obese Clear breath sounds bilaterally S1-S2 regular rate and rhythm no murmur Abdomen distended, tender to palpation, no rebound no guarding Moving all four extremities No lower extremity edema Lab Troponin negative Lipase negative Hemoglobin 17 EKG NSR Imaging Right upper quadrant ultrasound with cholelithiasis Nonobs nephrolithiasis No AAA, ascites EGD 2-3 cm sliding-type hiatal hernia with grade B linear erosive esophagitis and distal esophageal ulcerations; no stricture or obstruct Mild to moderate gastroduodenitis Assessment and plan Abdominal pain Chest pain likely referred from above Cholelithiasis without cholecystitis URI ruled out dysphagia Suicidal ideation possible malingering reglan protonix maalox Advance diet as tolerated IV fluid No antibiotic at this moment GI consult appreciated s/p scope surgery consult appreciated advance diet as tolerated sitter for safety tele spych appreciated elopement precaution ensure voluntary transfer to acute inp psych encourage ambulation, OOBTC pending psych reeval Replete electrolytes Diet soft DVT prophylaxis lovenox Plan discussed with: Patient My Orders Orders - PATTY TABARES MD Procedure Category Date Status Time Basic Metabolic Panel LAB 09/13/24 Verified 04:00 Complete Blood Count LAB 09/13/24 Verified 04:00 Magnesium LAB 09/13/24 Verified 04:00 Phosphorus LAB 09/13/24 Verified 04:00 Date of Service: Sep 12, 2024 Billing Provider: PATTY TABARES MD Common Visit Codes: [id number] INP/OBS CARE(MOD) PATTY TABARES MD Sep 12, 2024 16:15
[2024-09-13] VITALS (8 sets, daily range): BP systolic 91–105; BP diastolic 45–92; PULSE 59–66; RESP 15–19; TEMP 97.5–98; O2SAT 89–100
[2024-09-13 06:05] LABS: Anion Gap 7 (5-15); Carbon Dioxide 29 mmol/L (20-31); Chloride 106 mmol/L (98-107); Potassium 3.9 mmol/L (3.5-5.1); Sodium 142 mmol/L (136-145)
[2024-09-13 06:06] LABS: Calcium 9.3 mg/dL (8.7-10.4)
[2024-09-13 06:11] LABS: BUN/Creatinine Ratio 22.2 (10.0-20.0); Blood Urea Nitrogen 20 mg/dL (9-23)
[2024-09-13 06:13] LABS: Phosphorus 3.3 mg/dL (2.4-5.1)
[2024-09-13 06:14] LABS: Glucose 106 mg/dL (74-106)
[2024-09-13 06:27] LABS: Basophils # (auto) 0 10 ^3/uL (0-0.2); Basophils % (auto) 0.7 % (0.0-2.0); Eosinophils # (auto) 0.2 10 ^3/uL (0-0.8); Eosinophils % (auto) 4.9 % (0.0-7.0); Hematocrit 44.3 % (36.0-46.0); Hemoglobin 14.8 g/dL (12.2-16.2); Lymphocytes # (auto) 1.5 10 ^3/uL (0.4-5.4); Lymphocytes % (auto) 29.9 % (10.0-50.0); Mean Corpuscular Hemoglobin 31.3 pg (28.0-32.0); Mean Corpuscular Hgb Conc. 33.4 g/dL (32.0-36.0); Mean Corpuscular Volume 93.6 fL (80.0-100.0); Monocytes # (auto) 0.5 10 ^3/uL (0-1.3); Monocytes % (auto) 10.3 % (0.0-12.0); Neutrophils # (auto) 2.7 10 ^3/uL (1.6-8.6); Neutrophils % (auto) 54.2 % (37.0-80.0); Nucleated Red Blood Cells % 0.2 %; Platelet Count (auto) 201 10^3/uL (140-450); Red Blood Cells 4.73 10^6/uL (4.0-5.20); Red Cell Distribution Width 13.1 % (11.8-14.3); White Blood Cell 4.9 10^3/uL (4.4-10.8)
--- NOTE | 2024-09-13 13:44 | DVHPN2 ---
Reviewed: Care Plan, H&P, Labs, Medications, Previous Orders, Radiology Changes from previous H/P or p: No Changes Eyes: No Pain, No Vision change, No Conjunctivae inflammation, No Eyelid inflammation, No Other, No Redness ENT: No Ear pain, No Ear discharge, No Nose pain, No Nose discharge, No Nose congestion, No Mouth pain, No Mouth swelling, No Throat pain, No Throat swelling, No Other Cardiovascular: Chest Pain, Palpitations; No Orthopnea, No Paroxysmal Noc. Dyspnea, No Edema, No Lt Headedness, No Other Respiratory: No Cough, No Dry, No Shortness of breath, No SOB with excertion, No Wheezing, No Hemoptysis, No Pleuritic Pain, No Sputum, No Other Gastrointestinal: Nausea, Vomiting, Abdominal Pain; No Diarrhea, No Constipation, No Melena, No Hematochezia, No Other Genitourinary: No Dysuria, No Frequency, No Incontinence, No Hematuria, No Retention, No Other Musculoskeletal: No other, No neck pain, No shoulder pain, No arm pain, No back pain, No hand pain, No leg pain, No foot pain Skin: No Rash, No Lesions, No Jaundice, No Bruising, No Other Objective Vitals Vital Signs Date Time Temp Pulse Resp B/P (MAP) Pulse Ox O2 Delivery O2 Flow Rate FiO2 09/13/24 09:00 97.6 64 16 101/52 (68) 99 97.6 09/13/24 08:10 Room Air* 0 21 Intake/Output Intake and Output 09/13/24 07:00 Intake Total 520 ml Balance 520 ml Intake Oral 520 ml # Voids 5 General Appearance: Alert, Oriented X3, Cooperative, No acute distress Lungs: Clear to auscultation Cardiovascular: Regular rate, Normal S1, Normal S2 Abdomen: Normal bowel sounds, Soft, No tenderness, No hepatospenomegaly Neuro: Normal gait, Normal speech, Strength at 5/5 X4 ext, Normal tone, S ensation intact, Cranial nerves 3-12 NL Psych/Mental Status: Mental status NL Medications Current Medications Medications Dose Ordered Sig/Rafael Route Start Time Stop Time Status Last Admin Dose Admin Acetaminophen 650 mg Q6HP PRN PO 08/26/24 18:30 09/13/24 05:47 650 MG Aspirin 81 mg DAILY PO 08/28/24 10:00 09/13/24 09:37 81 MG Polyethylene Glycol 17 gm DAILY PO 08/28/24 10:00 09/13/24 09:35 17 GM Sucralfate 1 gm QID@0600,1130,1700,2200 PO 09/02/24 17:00 09/13/24 12:32 1 GM Sertraline HCl 75 mg DAILY PO 09/05/24 10:00 09/13/24 09:37 75 MG Enoxaparin Sodium 40 mg DAILY SC 09/05/24 10:00 09/13/24 09:36 40 MG Pantoprazole Sodium 40 mg BID IV 09/07/24 22:00 09/13/24 09:37 40 MG Enteral Nutritional Formula 240 ml TIDWM PO 09/08/24 12:00 09/13/24 12:11 240 ML Polyethylene Glycol 17 gm DAILYPRN PRN PO 09/09/24 11:15 09/09/24 13:55 17 GM Laboratory Results Laboratory Tests 09/13/24 05:02 Chemistry Test 09/13/24 05:02 Calcium Level 9.3 mg/dL (8.7-10.4) Magnesium Level 2.0 mg/dL (1.6-2.6) Phosphorus Level 3.3 mg/dL (2.4-5.1) Urinalysis Test 08/29/24 08:38 Urine Color Yellow (Yellow) Urine Clarity Clear (Clear) Urine pH 5.5 (5.0-9.0) Urine Specific [place] 1.017 (1.001-1.035) Urine Protein Negative (Negative) Urine Ketones 1+ (Negative) H Urine Blood Trace /uL (Negative) H Urine Nitrite Negative (Negative) Urine Bilirubin Negative (Negative) Urine Urobilinogen Normal mg/dL (Negative) Urine Leukocyte Esterase 1+ /uL (Negative) Urine RBC 1 /hpf (0 - 4) Urine WBC 6 /hpf (0 - 5) Urine Squamous Epithelial Cells Few /hpf (<5) Urine Bacteria Few /hpf (None Seen) H Urine Glucose Normal mg/dL (Normal) Labs and/or images reviewed: Labs reviewed by me, Image(s) reviewed by me Assessment/Plan Assessment/Plan Covering for Dr. Dean Abdominal pain Chest pain likely referred from above Cholelithiasis without cholecystitis URI ruled out dysphagia Suicidal ideation possible malingering Awaiting transfer to the [facility] facility Plan discussed with: Patient Date of Service: Sep 13, 2024 Billing Provider: MARLENI ANDRADE MD Common Visit Codes: [id number] INP/OBS CARE(HIGH) MARLENI ANDRADE MD Sep 13, 2024 13:44
[2024-09-14 01:00] VITALS: BP 107/63; PULSE 78; RESP 20; TEMP 97.9; O2SAT 91
[2024-09-14 05:00] VITALS: BP 102/71; PULSE 81; RESP 20; TEMP 97.8; O2SAT 90
--- NOTE | 2024-09-14 08:09 | DVHPN2 ---
Reviewed: Care Plan, H&P, Labs, Medications, Previous Orders, Radiology Changes from previous H/P or p: No Changes Eyes: No Pain, No Vision change, No Conjunctivae inflammation, No Eyelid inflammation, No Other, No Redness ENT: No Ear pain, No Ear discharge, No Nose pain, No Nose discharge, No Nose congestion, No Mouth pain, No Mouth swelling, No Throat pain, No Throat swelling, No Other Cardiovascular: Chest Pain, Palpitations; No Orthopnea, No Paroxysmal Noc. Dyspnea, No Edema, No Lt Headedness, No Other Respiratory: No Cough, No Dry, No Shortness of breath, No SOB with excertion, No Wheezing, No Hemoptysis, No Pleuritic Pain, No Sputum, No Other Gastrointestinal: Nausea, Vomiting, Abdominal Pain; No Diarrhea, No Constipation, No Melena, No Hematochezia, No Other Genitourinary: No Dysuria, No Frequency, No Incontinence, No Hematuria, No Retention, No Other Musculoskeletal: No other, No neck pain, No shoulder pain, No arm pain, No back pain, No hand pain, No leg pain, No foot pain Skin: No Rash, No Lesions, No Jaundice, No Bruising, No Other Objective Vitals Vital Signs Date Time Temp Pulse Resp B/P (MAP) Pulse Ox O2 Delivery O2 Flow Rate FiO2 09/14/24 05:00 97.8 81 20 102/71 (81) 90 97.8 09/13/24 20:00 Room Air* 0 21 Intake/Output Intake and Output 09/14/24 07:00 Intake Total 2000 ml Balance 2000 ml Intake Oral 2000 ml # Voids 7 # Bowel Movements 1 General Appearance: Alert, Oriented X3, Cooperative, No acute distress Lungs: Clear to auscultation Cardiovascular: Regular rate, Normal S1, Normal S2 Abdomen: Normal bowel sounds, Soft, No tenderness, No hepatospenomegaly Neuro: Normal gait, Normal speech, Strength at 5/5 X4 ext, Normal tone, S ensation intact, Cranial nerves 3-12 NL Psych/Mental Status: Mental status NL Medications Current Medications Medications Dose Ordered Sig/Rafael Route Start Time Stop Time Status Last Admin Dose Admin Acetaminophen 650 mg Q6HP PRN PO 08/26/24 18:30 09/13/24 05:47 650 MG Aspirin 81 mg DAILY PO 08/28/24 10:00 09/13/24 09:37 81 MG Polyethylene Glycol 17 gm DAILY PO 08/28/24 10:00 09/13/24 09:35 17 GM Sucralfate 1 gm QID@0600,1130,1700,2200 PO 09/02/24 17:00 09/14/24 05:11 1 GM Sertraline HCl 75 mg DAILY PO 09/05/24 10:00 09/13/24 09:37 75 MG Enoxaparin Sodium 40 mg DAILY SC 09/05/24 10:00 09/13/24 09:36 40 MG Pantoprazole Sodium 40 mg BID IV 09/07/24 22:00 09/13/24 21:34 40 MG Enteral Nutritional Formula 240 ml TIDWM PO 09/08/24 12:00 09/13/24 18:28 240 ML Polyethylene Glycol 17 gm DAILYPRN PRN PO 09/09/24 11:15 09/09/24 13:55 17 GM Laboratory Results Laboratory Tests 09/13/24 05:02 Urinalysis Test 08/29/24 08:38 Urine Color Yellow (Yellow) Urine Clarity Clear (Clear) Urine pH 5.5 (5.0-9.0) Urine Specific [place] 1.017 (1.001-1.035) Urine Protein Negative (Negative) Urine Ketones 1+ (Negative) H Urine Blood Trace /uL (Negative) H Urine Nitrite Negative (Negative) Urine Bilirubin Negative (Negative) Urine Urobilinogen Normal mg/dL (Negative) Urine Leukocyte Esterase 1+ /uL (Negative) Urine RBC 1 /hpf (0 - 4) Urine WBC 6 /hpf (0 - 5) Urine Squamous Epithelial Cells Few /hpf (<5) Urine Bacteria Few /hpf (None Seen) H Urine Glucose Normal mg/dL (Normal) Labs and/or images reviewed: Labs reviewed by me, Image(s) reviewed by me Assessment/Plan Assessment/Plan Covering for Dr. Dean Abdominal pain Chest pain likely referred from above Cholelithiasis without cholecystitis URI ruled out dysphagia Suicidal ideation possible malingering Awaiting transfer to the [facility] facility Continue current management Plan discussed with: Patient Date of Service: Sep 14, 2024 Billing Provider: MARLENI ANDRADE MD Common Visit Codes: [id number] INP/OBS CARE(HIGH) MARLENI ANDRADE MD Sep 14, 2024 08:08
[2024-09-14 09:00] VITALS: BP 115/63; PULSE 70; RESP 19; TEMP 98; O2SAT 92
[2024-09-14 13:00] VITALS: BP 111/60; PULSE 69; RESP 18; TEMP 98; O2SAT 92
[2024-09-14 17:00] VITALS: BP 103/56; PULSE 71; RESP 20; TEMP 98; O2SAT 93
[2024-09-14 21:00] VITALS: BP 99/66; PULSE 62; RESP 18; TEMP 97.9; O2SAT 96
[2024-09-15] VITALS (7 sets, daily range): BP systolic 95–107; BP diastolic 38–71; PULSE 57–64; RESP 16–18; TEMP 97.8–98.2; O2SAT 90–95
--- NOTE | 2024-09-15 13:20 | DVHPN2 ---
Assessment/Plan Assessment/Plan Progress note Subjective 59-year-old female admitted for chest pain, found to have cholelithiasis and right upper quadrant pain possibly related. seen by GI, s/p scans and EGD. medically stable to discharge, patient refusing to escalate diet, discussed with GI and she is cleared, however on discharge she reported suicidal thoughts. now pending voluntary transfer to inpatient psych Patient seen by me today during rounds NAEON, pending psych transfer Objective Physical exam Alert, oriented x3 PERRLA Obese Clear breath sounds bilaterally S1-S2 regular rate and rhythm no murmur Abdomen distended, tender to palpation, no rebound no guarding Moving all four extremities No lower extremity edema Lab Troponin negative Lipase negative Hemoglobin 17 EKG NSR Imaging Right upper quadrant ultrasound with cholelithiasis Nonobs nephrolithiasis No AAA, ascites EGD 2-3 cm sliding-type hiatal hernia with grade B linear erosive esophagitis and distal esophageal ulcerations; no stricture or obstruct Mild to moderate gastroduodenitis Assessment and plan Abdominal pain Chest pain likely referred from above Cholelithiasis without cholecystitis URI ruled out dysphagia Suicidal ideation possible malingering reglan protonix maalox Advance diet as tolerated IV fluid No antibiotic at this moment GI consult appreciated s/p scope surgery consult appreciated advance diet as tolerated sitter for safety tele spych appreciated elopement precaution ensure voluntary transfer to acute inp psych encourage ambulation, OOBTC pending psych reeval minimize blood draws Replete electrolytes Diet soft DVT prophylaxis lovenox Plan discussed with: Patient Date of Service: Sep 15, 2024 Billing Provider: PATTY TABARES MD Common Visit Codes: [id number] SAME DATE (MOD) PATTY TABARES MD Sep 15, 2024 13:20
[2024-09-15] MEDS: SODIUM CHLORIDE 0.9% 1,000 ML IV SCH (15:20)
[2024-09-16] VITALS (8 sets, daily range): BP systolic 95–115; BP diastolic 52–76; PULSE 64–72; RESP 16–18; TEMP 97.7–98.7; O2SAT 90–99
--- NOTE | 2024-09-16 13:34 | DVHPN2 ---
Assessment/Plan Assessment/Plan Progress note Subjective 59-year-old female admitted for chest pain, found to have cholelithiasis and right upper quadrant pain possibly related. seen by GI, s/p scans and EGD. medically stable to discharge, patient refusing to escalate diet, discussed with GI and she is cleared, however on discharge she reported suicidal thoughts. now pending voluntary transfer to inpatient psych Patient seen by me today during rounds NAEON, pending psych transfer, able to take supplements, not eating, iv hydration yesterday, dc today to resume oral hydration Objective Physical exam Alert, oriented x3 PERRLA Obese Clear breath sounds bilaterally S1-S2 regular rate and rhythm no murmur Abdomen distended, tender to palpation, no rebound no guarding Moving all four extremities No lower extremity edema Lab Troponin negative Lipase negative Hemoglobin 17 EKG NSR Imaging Right upper quadrant ultrasound with cholelithiasis Nonobs nephrolithiasis No AAA, ascites EGD 2-3 cm sliding-type hiatal hernia with grade B linear erosive esophagitis and distal esophageal ulcerations; no stricture or obstruct Mild to moderate gastroduodenitis Assessment and plan Abdominal pain Chest pain likely referred from above Cholelithiasis without cholecystitis URI ruled out dysphagia Suicidal ideation possible malingering reglan protonix maalox Advance diet as tolerated IV fluid No antibiotic at this moment GI consult appreciated s/p scope surgery consult appreciated advance diet as tolerated sitter for safety tele spych appreciated elopement precaution ensure voluntary transfer to acute inp psych encourage ambulation, OOBTC pending psych reeval minimize blood draws Replete electrolytes Diet soft DVT prophylaxis lovenox Plan discussed with: Patient My Orders Orders - PATTY TABARES MD Procedure Category Date Status Time Sodium Chloride 0.9% PHA 09/15/24 In Process 15:00 Basic Metabolic Panel LAB 09/17/24 Verified 04:00 Complete Blood Count LAB 09/17/24 Verified 04:00 Date of Service: Sep 16, 2024 Billing Provider: PATTY TABARES MD Common Visit Codes: [id number] INP/OBS CARE(MOD) PATTY TABARES MD Sep 16, 2024 13:34
[2024-09-17] VITALS (7 sets, daily range): BP systolic 100–110; BP diastolic 52–67; PULSE 62–72; RESP 14–18; TEMP 97.5–98.7; O2SAT 90–93
[2024-09-17 06:32] LABS: Basophils # (auto) 0 10 ^3/uL (0-0.2); Basophils % (auto) 0.7 % (0.0-2.0); Eosinophils # (auto) 0.3 10 ^3/uL (0-0.8); Eosinophils % (auto) 4.6 % (0.0-7.0); Hemoglobin 14.8 g/dL (12.2-16.2); Lymphocytes # (auto) 1.7 10 ^3/uL (0.4-5.4); Lymphocytes % (auto) 31.6 % (10.0-50.0); Mean Corpuscular Hemoglobin 31.7 pg (28.0-32.0); Mean Corpuscular Hgb Conc. 33.5 g/dL (32.0-36.0); Mean Corpuscular Volume 94.5 fL (80.0-100.0); Monocytes # (auto) 0.6 10 ^3/uL (0-1.3); Monocytes % (auto) 10.8 % (0.0-12.0); Neutrophils # (auto) 2.9 10 ^3/uL (1.6-8.6); Neutrophils % (auto) 52.3 % (37.0-80.0); Nucleated Red Blood Cells % 0.1 %; Platelet Count (auto) 200 10^3/uL (140-450); Red Blood Cells 4.65 10^6/uL (4.0-5.20); Red Cell Distribution Width 13.2 % (11.8-14.3); White Blood Cell 5.5 10^3/uL (4.4-10.8)
[2024-09-17 06:57] LABS: Chloride 106 mmol/L (98-107); Potassium 4.1 mmol/L (3.5-5.1); Sodium 140 mmol/L (136-145)
[2024-09-17 06:58] LABS: Anion Gap 8 (5-15); Carbon Dioxide 26 mmol/L (20-31)
[2024-09-17 06:59] LABS: Calcium 9.9 mg/dL (8.7-10.4)
[2024-09-17 07:03] LABS: BUN/Creatinine Ratio 23.8 (10.0-20.0); Blood Urea Nitrogen 19 mg/dL (9-23); Glucose 106 mg/dL (74-106)
--- NOTE | 2024-09-17 13:10 | DVHPN2 ---
Subjective Patient is feeling dizzy today, we will try meclizine and some fluids. Converting IV Protonix to p.o.. Patient remains stable for transfer. Pending placement for psych for SI. Reviewed: Care Plan, H&P, Labs, Medications, Previous Orders, Radiology Changes from previous H/P or p: No Changes Eyes: No Pain, No Vision change, No Conjunctivae inflammation, No Eyelid inflammation, No Other, No Redness ENT: No Ear pain, No Ear discharge, No Nose pain, No Nose discharge, No Nose congestion, No Mouth pain, No Mouth swelling, No Throat pain, No Throat swelling, No Other Cardiovascular: Chest Pain, Palpitations; No Orthopnea, No Paroxysmal Noc. Dyspnea, No Edema, No Lt Headedness, No Other Respiratory: No Cough, No Dry, No Shortness of breath, No SOB with excertion, No Wheezing, No Hemoptysis, No Pleuritic Pain, No Sputum, No Other Gastrointestinal: Nausea, Vomiting, Abdominal Pain; No Diarrhea, No Constipation, No Melena, No Hematochezia, No Other Genitourinary: No Dysuria, No Frequency, No Incontinence, No Hematuria, No Retention, No Other Musculoskeletal: No other, No neck pain, No shoulder pain, No arm pain, No back pain, No hand pain, No leg pain, No foot pain Skin: No Rash, No Lesions, No Jaundice, No Bruising, No Other Objective Vitals Vital Signs Date Time Temp Pulse Resp B/P (MAP) Pulse Ox O2 Delivery O2 Flow Rate FiO2 09/17/24 09:00 97.8 68 16 104/58 (73) 93 97.8 09/17/24 08:00 Room Air* 0 21 Intake/Output Intake and Output 09/17/24 07:00 Intake Total 1875 ml Balance 1875 ml Intake Oral 875 ml IV Total 1000 ml # Voids 8 Exam Objective Physical exam Alert, oriented x3 PERRLA Obese Clear breath sounds bilaterally S1-S2 regular rate and rhythm no murmur Abdomen distended, tender to palpation, no rebound no guarding Moving all four extremities No lower extremity edema General Appearance: Alert, Oriented X3, Cooperative, No acute distress Lungs: Clear to auscultation Cardiovascular: Regular rate, Normal S1, Normal S2 Abdomen: Normal bowel sounds, Soft, No tenderness, No hepatospenomegaly Neuro: Normal gait, Normal speech, Strength at 5/5 X4 ext, Normal tone, S ensation intact, Cranial nerves 3-12 NL Psych/Mental Status: Mental status NL Medications Current Medications Medications Dose Ordered Sig/Rafael Route Start Time Stop Time Status Last Admin Dose Admin Acetaminophen 650 mg Q6HP PRN PO 08/26/24 18:30 09/16/24 22:10 650 MG Aspirin 81 mg DAILY PO 08/28/24 10:00 09/17/24 09:19 81 MG Polyethylene Glycol 17 gm DAILY PO 08/28/24 10:00 09/17/24 09:19 17 GM Sucralfate 1 gm QID@0600,1130,1700,2200 PO 09/02/24 17:00 09/17/24 05:33 1 GM Sertraline HCl 75 mg DAILY PO 09/05/24 10:00 09/17/24 09:26 75 MG Pantoprazole Sodium 40 mg BID IV 09/07/24 22:00 09/17/24 09:19 40 MG Enteral Nutritional Formula 240 ml TIDWM PO 09/08/24 12:00 09/17/24 08:00 240 ML Polyethylene Glycol 17 gm DAILYPRN PRN PO 09/09/24 11:15 09/09/24 13:55 17 GM Laboratory Results Laboratory Tests 09/17/24 05:43 Chemistry Test 09/17/24 05:43 Calcium Level 9.9 mg/dL (8.7-10.4) Urinalysis Test 08/29/24 08:38 Urine Color Yellow (Yellow) Urine Clarity Clear (Clear) Urine pH 5.5 (5.0-9.0) Urine Specific [place] 1.017 (1.001-1.035) Urine Protein Negative (Negative) Urine Ketones 1+ (Negative) H Urine Blood Trace /uL (Negative) H Urine Nitrite Negative (Negative) Urine Bilirubin Negative (Negative) Urine Urobilinogen Normal mg/dL (Negative) Urine Leukocyte Esterase 1+ /uL (Negative) Urine RBC 1 /hpf (0 - 4) Urine WBC 6 /hpf (0 - 5) Urine Squamous Epithelial Cells Few /hpf (<5) Urine Bacteria Few /hpf (None Seen) H Urine Glucose Normal mg/dL (Normal) Labs and/or images reviewed: Labs reviewed by me, Image(s) reviewed by me Assessment/Plan Assessment/Plan Update 09/17- Patient is feeling dizzy today, we will try meclizine and some fluids. Patient remains stable for transfer. Pending placement for psych for SI. Abdominal pain Chest pain likely referred from above Cholelithiasis without cholecystitis URI ruled out dysphagia Suicidal ideation possible malingering reglan protonix maalox Advance diet as tolerated No antibiotic at this moment GI consult - s/p scope surgery consulted diet as tolerated sitter for safety tele spych appreciated elopement precaution ensure encourage ambulation, OOBTC voluntary transfer to acute inp psych - SI due to multiple family/friends recently pending psych reeval vs transfer minimize blood draws Replete electrolytes Diet soft DVT prophylaxis lovenox Plan discussed with: Patient My Orders Orders - GERMAIN VALLE MD Procedure Category Date Status Time Meclizine Tablet PHA 09/17/24 Verified (Antivert Tablet) 13:15 Meclizine Tablet PHA 09/17/24 Verified (Antivert Tablet) 13:15 Lactated Ringers Lr PHA 09/17/24 Verified 13:15 Date of Service: Sep 17, 2024 Billing Provider: GERMAIN VALLE MD Common Visit Codes: [id number] INP/OBS CARE(HIGH) GERMAIN VALLE MD Sep 17, 2024 13:10
[2024-09-17] MEDS: LACTATED RINGER'S 1,000 ML IV ONE (14:13)
[2024-09-17] MEDS: MECLIZINE HCL 25 MG TAB PO ONE (14:14)
[2024-09-17] MEDS ORDERED: SODIUM CHLORIDE 0.9% 1,000 ML IV SCH (14:15)
--- NOTE | 2024-09-17 15:08 | ECG ---
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
[2024-09-18] VITALS (8 sets, daily range): BP systolic 95–109; BP diastolic 49–67; PULSE 61–78; RESP 16–18; TEMP 97.6–98.4; O2SAT 92–97
[2024-09-18] MEDS ORDERED: PANTOPRAZOLE 40 MG TAB PO SCH (06:00)
--- NOTE | 2024-09-18 09:37 | DVHPN2 ---
Assessment/Plan Assessment/Plan Progress note Subjective 59-year-old female admitted for chest pain, found to have cholelithiasis and right upper quadrant pain possibly related. seen by GI, s/p scans and EGD. medically stable to discharge, patient refusing to escalate diet, discussed with GI and she is cleared, however on discharge she reported suicidal thoughts. now pending voluntary transfer to inpatient psych Patient seen by me today during rounds still have diziness, restart iv fluids, reconsult psych Objective Physical exam Alert, oriented x3 PERRLA Obese Clear breath sounds bilaterally S1-S2 regular rate and rhythm no murmur Abdomen distended, tender to palpation, no rebound no guarding Moving all four extremities No lower extremity edema Lab Troponin negative Lipase negative Hemoglobin 17 EKG NSR Imaging Right upper quadrant ultrasound with cholelithiasis Nonobs nephrolithiasis No AAA, ascites EGD 2-3 cm sliding-type hiatal hernia with grade B linear erosive esophagitis and distal esophageal ulcerations; no stricture or obstruct Mild to moderate gastroduodenitis Assessment and plan Abdominal pain Chest pain likely referred from above Cholelithiasis without cholecystitis URI ruled out dysphagia Suicidal ideation possible malingering reglan protonix maalox Advance diet as tolerated IV fluid No antibiotic at this moment GI consult appreciated s/p scope surgery consult appreciated advance diet as tolerated sitter for safety tele spych appreciated elopement precaution ensure voluntary transfer to acute inp psych encourage ambulation, OOBTC pending psych reeval minimize blood draws orthostatic vs ivhydration Replete electrolytes Diet soft DVT prophylaxis lovenox Plan discussed with: Patient My Orders Orders - PATTY TABARES MD Procedure Category Date Status Time Electrocardigram EKG 09/17/24 Resulted 15:04 Date of Service: Sep 18, 2024 Billing Provider: PATTY TABARES MD Common Visit Codes: [id number] INP/OBS CARE(HIGH) PATTY TABARES MD Sep 18, 2024 09:37
[2024-09-18] MEDS: PANTOPRAZOLE 40 MG/10 ML VIAL INJ IV SCH (10:47)
[2024-09-18] MEDS: SODIUM CHLORIDE 0.9% 1,000 ML IV SCH (11:10)
[2024-09-19] VITALS (8 sets, daily range): BP systolic 96–116; BP diastolic 58–80; PULSE 61–77; RESP 16–19; TEMP 97–98.1; O2SAT 92–97
[2024-09-19] MEDS: MECLIZINE HCL 25 MG TAB PO PRN (11:14)
--- NOTE | 2024-09-19 16:07 | DVHPN2 ---
Assessment/Plan Assessment/Plan Progress note Subjective 59-year-old female admitted for chest pain, found to have cholelithiasis and right upper quadrant pain possibly related. seen by GI, s/p scans and EGD. medically stable to discharge, patient refusing to escalate diet, discussed with GI and she is cleared, however on discharge she reported suicidal thoughts. now pending voluntary transfer to inpatient psych Patient seen by me today during rounds working with PT, pending spych reeval, finishing food Objective Physical exam Alert, oriented x3 PERRLA Obese Clear breath sounds bilaterally S1-S2 regular rate and rhythm no murmur Abdomen distended, tender to palpation, no rebound no guarding Moving all four extremities No lower extremity edema Lab Troponin negative Lipase negative Hemoglobin 17 EKG NSR Imaging Right upper quadrant ultrasound with cholelithiasis Nonobs nephrolithiasis No AAA, ascites EGD 2-3 cm sliding-type hiatal hernia with grade B linear erosive esophagitis and distal esophageal ulcerations; no stricture or obstruct Mild to moderate gastroduodenitis Assessment and plan Abdominal pain Chest pain likely referred from above Cholelithiasis without cholecystitis URI ruled out dysphagia Suicidal ideation possible malingering reglan protonix maalox Advance diet as tolerated IV fluid No antibiotic at this moment GI consult appreciated s/p scope surgery consult appreciated advance diet as tolerated sitter for safety tele spych appreciated elopement precaution ensure voluntary transfer to acute inp psych encourage ambulation, OOBTC pending psych reeval minimize blood draws orthostatic vs ivhydration Replete electrolytes Diet soft DVT prophylaxis lovenox Plan discussed with: Patient My Orders Orders - PATTY TABARES MD Procedure Category Date Status Time Pt Request For Service PT 09/19/24 Logged 09:26 Date of Service: Sep 19, 2024 Billing Provider: PATTY TABARES MD Common Visit Codes: [id number] INP/OBS CARE(HIGH) PATTY TABARES MD Sep 19, 2024 16:07
--- NOTE | 2024-09-19 16:10 | DVHINCON2 ---
Date of Service if different f: Sep 19, 2024 Consultation ([facility]) Labs Laboratory Tests Test 08/26/24 14:40 08/27/24 06:34 08/29/24 08:38 09/02/24 05:01 Troponin I High Sensitivity < 3 ng/L (</=34) Lipase 31 U/L (12-53) Hepatitis B Surface Antibody Negative (Negative) Urine Color Yellow (Yellow) Urine Clarity Clear (Clear) Urine pH 5.5 (5.0-9.0) Urine Specific [place] 1.017 (1.001-1.035) Urine Protein Negative (Negative) Urine Ketones 1+ (Negative) Urine Blood Trace /uL (Negative) Urine Nitrite Negative (Negative) Urine Bilirubin Negative (Negative) Urine Urobilinogen Normal mg/dL (Negative) Urine Leukocyte Esterase 1+ /uL (Negative) Urine RBC 1 /hpf (0 - 4) Urine WBC 6 /hpf (0 - 5) Urine Squamous Epithelial Cells Few /hpf (<5) Urine Bacteria Few /hpf (None Seen) Urine Glucose Normal mg/dL (Normal) Urine Opiates Screen Neg (NEGATIVE) Urine Fentanyl Screen Neg (NEGATIVE) Urine Barbiturates Screen Neg (NEGATIVE) Urine Phencyclidine Screen Neg (NEGATIVE) Urine Amphetamines Screen Neg (NEGATIVE) Urine Benzodiazepines Screen Neg (NEGATIVE) Urine Cocaine Screen Neg (NEGATIVE) Urine Cannabinoids Screen Neg (NEGATIVE) Total Bilirubin 0.7 mg/dL (0.2-1.0) Aspartate Amino Transf (AST/SGOT) 14 U/L (13-40) Alanine Aminotransferase (ALT/SGPT) 15 U/L (7-40) Alkaline Phosphatase 81 U/L (46-116) Total Protein 6.4 g/dL (5.7-8.2) Albumin 3.9 g/dL (3.2-4.8) Test 09/13/24 05:02 09/17/24 05:43 Phosphorus Level 3.3 mg/dL (2.4-5.1) Magnesium Level 2.0 mg/dL (1.6-2.6) White Blood Count 5.5 10^3/uL (4.4-10.8) Red Blood Count 4.65 10^6/uL (4.0-5.20) Hemoglobin 14.8 g/dL (12.2-16.2) Hematocrit 44.0 % (36.0-46.0) Mean Corpuscular Volume 94.5 fL (80.0-100.0) Mean Corpuscular Hemoglobin 31.7 pg (28.0-32.0) Mean Corpuscular Hemoglobin Concent 33.5 g/dL (32.0-36.0) Red Cell Distribution Width 13.2 % (11.8-14.3) Platelet Count 200 10^3/uL (140-450) Mean Platelet Volume 9.9 fL (6.9-10.8) Neutrophils (%) (Auto) 52.3 % (37.0-80.0) Lymphocytes (%) (Auto) 31.6 % (10.0-50.0) Monocytes (%) (Auto) 10.8 % (0.0-12.0) Eosinophils (%) (Auto) 4.6 % (0.0-7.0) Basophils (%) (Auto) 0.7 % (0.0-2.0) Neutrophils # (Auto) 2.9 10 ^3/uL (1.6-8.6) Lymphocytes # (Auto) 1.7 10 ^3/uL (0.4-5.4) Monocytes # (Auto) 0.6 10 ^3/uL (0-1.3) Eosinophils # (Auto) 0.3 10 ^3/uL (0-0.8) Basophils # (Auto) 0 10 ^3/uL (0-0.2) Nucleated Red Blood Cells 0.1 % Sodium Level 140 mmol/L (136-145) Potassium Level 4.1 mmol/L (3.5-5.1) Chloride Level 106 mmol/L (98-107) Carbon Dioxide Level 26 mmol/L (20-31) Anion Gap 8 (5-15) Blood Urea Nitrogen 19 mg/dL (9-23) Creatinine 0.80 mg/dL (0.550-1.02) Glomerular Filtration Rate Calc 84 mL/min (>90) BUN/Creatinine Ratio 23.8 (10.0-20.0) Serum Glucose 106 mg/dL (74-106) Calcium Level 9.9 mg/dL (8.7-10.4) Appetite: Fair Appearance: Stated age Psychomotor activity: WNL Behavioral: Uncooperative Eye contact: Appropriate Speech: WNL Affect: Irritable Mood: Irritable Thought processes: Linear/Goal-directed Thought content: WNL Suicidal ideations: Present (passive) Orientation: Person, Place, Time, Situation Memory intact: Recent Intellect: Average Abstractability: WNL Concentration: Adequate Attention: Adequate Judgement: Poor Insight: Poor Vitals Vital Signs Date Time Temp Pulse Resp B/P (MAP) Pulse Ox O2 Delivery O2 Flow Rate FiO2 09/19/24 09:00 98.1 71 19 112/62 (79) 92 98.1 09/19/24 08:00 Room Air* 0 21 Current medications Current Medications Medications Dose Ordered Sig/Rafael Route Start Time Stop Time Status Last Admin Dose Admin Acetaminophen 650 mg Q6HP PRN PO 08/26/24 18:30 09/18/24 11:10 650 MG Aspirin 81 mg DAILY PO 08/28/24 10:00 09/19/24 10:56 81 MG Polyethylene Glycol 17 gm DAILY PO 08/28/24 10:00 09/19/24 10:55 17 GM Sucralfate 1 gm QID@0600,1130,1700,2200 PO 09/02/24 17:00 09/19/24 12:42 1 GM Sertraline HCl 75 mg DAILY PO 09/05/24 10:00 09/19/24 10:55 75 MG Enteral Nutritional Formula 240 ml TIDWM PO 09/08/24 12:00 09/19/24 12:00 240 ML Polyethylene Glycol 17 gm DAILYPRN PRN PO 09/09/24 11:15 09/09/24 13:55 17 GM Meclizine HCl 25 mg Q8HPRN PRN PO 09/17/24 13:15 09/19/24 11:14 25 MG Pantoprazole Sodium 40 mg DAILY IV 09/18/24 10:00 09/19/24 10:56 40 MG Sodium Chloride 1,000 ml @ 100 mls/hr Q10H IV 09/18/24 09:45 09/19/24 05:50 100 MLS/HR Medication adjusted: No Diagnosis: Unspecified mood disorder, r/o malingering Plan : Pt continues to report suicidal ideation, likely malingering. director emergency services have been unable to find placement may transfer vol to psychiatric hospital vs discharge continue sertraline 75mg. restart Abilify 5mg po qhs when available History of Present Illness Reason for Consult : continues to report suicidal thoughts HPI : This is a 59-year-old female with hx of depression and anxiety, presented to ED for abdominal pain on 08/27/24, and later endorsing SI. Patient had two prior telepsychiatry evaluations. On evaluation today, pt continues to report feeling suicidal and changes plan to " I feel like choking myself." She feels like she no longer wants to live. She denies homicidal thoughts. Today, reports auditory hallucinations which she previously denied. Denies visual hallucinations or paranoia. When asked about content of voices, she would not say. Discussed that social worker have been unsuccessful in finding placement, and possible discharge to follow up outpatient or going herself voluntarily. She reports she is willing to wait for as long as it takes. She becomes more irritable, saying this tag writer is making her mental health worst for suggesting other options. DONNA POST DNP Sep 19, 2024 16:10
[2024-09-20 01:00] VITALS: BP 101/62; PULSE 67; RESP 19; O2SAT 90
[2024-09-20 05:00] VITALS: BP 112/68; PULSE 71; RESP 18; O2SAT 94
[2024-09-20 09:00] VITALS: BP 98/61; PULSE 75; RESP 17; TEMP 98.3; O2SAT 94
[2024-09-20 13:00] VITALS: BP 99/53; PULSE 73; RESP 17; TEMP 98.5; O2SAT 92
[2024-09-20] MEDS ORDERED: ARIP2TAB PO (17:01)
[2024-09-20 17:19] VITALS: BP 99/60; PULSE 73; RESP 17; TEMP 98.1; O2SAT 100
[2024-09-20 21:00] VITALS: BP 100/64; PULSE 83; RESP 17; TEMP 98.8; O2SAT 92
[2024-09-21 01:00] VITALS: BP 98/59; RESP 18; TEMP 98.8
[2024-09-21 05:00] VITALS: BP 99/57; PULSE 64; RESP 18; TEMP 97.6; O2SAT 91
[2024-09-21 09:30] VITALS: BP 100/60; PULSE 79; RESP 17; O2SAT 93
[2024-09-21 13:00] VITALS: BP 101/64; PULSE 64; RESP 17; TEMP 98.6; O2SAT 9
[2024-09-21 17:00] VITALS: BP 115/67; PULSE 71; RESP 18; TEMP 98.5; O2SAT 94
--- NOTE | 2024-09-21 18:32 | DVHPN2 ---
Assessment/Plan Assessment/Plan Progress note Subjective 59-year-old female admitted for chest pain, found to have cholelithiasis and right upper quadrant pain possibly related. seen by GI, s/p scans and EGD. medically stable to discharge, patient refusing to escalate diet, discussed with GI and she is cleared, however on discharge she reported suicidal thoughts. now pending voluntary transfer to inpatient psych Patient seen by me today during rounds pending transfer to acute inpatient psych, back to not finishing diet, abilify sent to pharmacy to be started here in the mean time Objective Physical exam Alert, oriented x3 PERRLA Obese Clear breath sounds bilaterally S1-S2 regular rate and rhythm no murmur Abdomen distended, tender to palpation, no rebound no guarding Moving all four extremities No lower extremity edema Lab Troponin negative Lipase negative Hemoglobin 17 EKG NSR Imaging Right upper quadrant ultrasound with cholelithiasis Nonobs nephrolithiasis No AAA, ascites EGD 2-3 cm sliding-type hiatal hernia with grade B linear erosive esophagitis and distal esophageal ulcerations; no stricture or obstruct Mild to moderate gastroduodenitis Assessment and plan Abdominal pain Chest pain likely referred from above Cholelithiasis without cholecystitis URI ruled out dysphagia Suicidal ideation possible malingering reglan protonix maalox Advance diet as tolerated IV fluid No antibiotic at this moment GI consult appreciated s/p scope surgery consult appreciated advance diet as tolerated sitter for safety tele spych appreciated elopement precaution ensure voluntary transfer to acute inp psych encourage ambulation, OOBTC pending psych reeval minimize blood draws orthostatic vs ivhydration Replete electrolytes Diet soft DVT prophylaxis lovenox Plan discussed with: Patient Date of Service: Sep 21, 2024 Billing Provider: PATTY TABARES MD Common Visit Codes: [id number] INP/OBS CARE(MOD) PATTY TABARES MD Sep 21, 2024 18:32
[2024-09-21 21:27] VITALS: BP 98/57; PULSE 70; RESP 20; TEMP 98.2; O2SAT 98
[2024-09-22 01:00] VITALS: BP 120/63; PULSE 60; RESP 20; TEMP 97.6; O2SAT 92
[2024-09-22 09:26] VITALS: BP 120/74; PULSE 57; RESP 18; TEMP 97.9; O2SAT 94
[2024-09-22 13:06] VITALS: BP 117/62; PULSE 76; RESP 20; TEMP 98.2; O2SAT 94
[2024-09-22 16:34] VITALS: BP 107/58; PULSE 78; RESP 18; TEMP 98; O2SAT 92
[2024-09-22 20:00] VITALS: PULSE 84; O2SAT 94
[2024-09-22 21:00] VITALS: BP 126/71; PULSE 84; RESP 18; TEMP 97.5; O2SAT 94
--- NOTE | 2024-09-22 21:22 | DVHPN2 ---
Assessment/Plan Assessment/Plan Progress note Subjective 59-year-old female admitted for chest pain, found to have cholelithiasis and right upper quadrant pain possibly related. seen by GI, s/p scans and EGD. medically stable to discharge, patient refusing to escalate diet, discussed with GI and she is cleared, however on discharge she reported suicidal thoughts. now pending voluntary transfer to inpatient psych. Patient seen by me today during rounds pending transfer to acute inpatient psych, status quo Objective Physical exam Alert, oriented x3 PERRLA Obese Clear breath sounds bilaterally S1-S2 regular rate and rhythm no murmur Abdomen distended, tender to palpation, no rebound no guarding Moving all four extremities No lower extremity edema Lab Troponin negative Lipase negative Hemoglobin 17 EKG NSR Imaging Right upper quadrant ultrasound with cholelithiasis Nonobs nephrolithiasis No AAA, ascites EGD 2-3 cm sliding-type hiatal hernia with grade B linear erosive esophagitis and distal esophageal ulcerations; no stricture or obstruct Mild to moderate gastroduodenitis Assessment and plan Abdominal pain Chest pain likely referred from above Cholelithiasis without cholecystitis URI ruled out dysphagia Suicidal ideation possible malingering reglan protonix maalox Advance diet as tolerated IV fluid No antibiotic at this moment GI consult appreciated s/p scope surgery consult appreciated advance diet as tolerated sitter for safety tele spych appreciated elopement precaution ensure voluntary transfer to acute inp psych encourage ambulation, OOBTC pending psych reeval minimize blood draws orthostatic vs ivhydration Replete electrolytes Diet soft DVT prophylaxis lovenox Plan discussed with: Patient Date of Service: Sep 22, 2024 Billing Provider: PATTY TABARES MD Common Visit Codes: [id number] INP/OBS CARE(MOD) PATTY TABARES MD Sep 22, 2024 21:22
[2024-09-23] VITALS (7 sets, daily range): BP systolic 94–119; BP diastolic 60–75; PULSE 66–88; RESP 17–19; TEMP 97.5–98.3; O2SAT 92–96
--- NOTE | 2024-09-23 15:31 | DVHPN2 ---
Assessment/Plan Assessment/Plan Progress note Subjective 59-year-old female admitted for chest pain, found to have cholelithiasis and right upper quadrant pain possibly related. seen by GI, s/p scans and EGD. medically stable to discharge, patient refusing to escalate diet, discussed with GI and she is cleared, however on discharge she reported suicidal thoughts. now pending voluntary transfer to inpatient psych. Patient seen by me today during rounds pending transfer to acute inpatient psych, on psych reeval they recommend discharge vs voluntary transfer. patient again reported still having SA. Objective Physical exam Alert, oriented x3 PERRLA Obese Clear breath sounds bilaterally S1-S2 regular rate and rhythm no murmur Abdomen distended, tender to palpation, no rebound no guarding Moving all four extremities No lower extremity edema Lab Troponin negative Lipase negative Hemoglobin 17 EKG NSR Imaging Right upper quadrant ultrasound with cholelithiasis Nonobs nephrolithiasis No AAA, ascites EGD 2-3 cm sliding-type hiatal hernia with grade B linear erosive esophagitis and distal esophageal ulcerations; no stricture or obstruct Mild to moderate gastroduodenitis Assessment and plan Abdominal pain Chest pain likely referred from above Cholelithiasis without cholecystitis URI ruled out dysphagia Suicidal ideation possible malingering reglan protonix maalox Advance diet as tolerated IV fluid No antibiotic at this moment GI consult appreciated s/p scope surgery consult appreciated advance diet as tolerated sitter for safety tele spych appreciated elopement precaution ensure voluntary transfer to acute inp psych encourage ambulation, OOBTC pending psych reeval minimize blood draws orthostatic vs ivhydration Replete electrolytes Diet soft DVT prophylaxis lovenox Plan discussed with: Patient My Orders Orders - PATTY TABARES MD Procedure Category Date Status Time Basic Metabolic Panel LAB 09/23/24 Logged 04:00 Complete Blood Count LAB 09/23/24 Logged 04:00 May Take Own Meds ORDERS 09/22/24 Transmitted 21:23 Date of Service: Sep 23, 2024 Billing Provider: PATTY TABARES MD Common Visit Codes: [id number] INP/OBS CARE(HIGH) PATTY TABARES MD Sep 23, 2024 15:31
[2024-09-23 16:12] LABS: Basophils # (auto) 0 10 ^3/uL (0-0.2); Basophils % (auto) 0.6 % (0.0-2.0); Eosinophils # (auto) 0.3 10 ^3/uL (0-0.8); Eosinophils % (auto) 4.8 % (0.0-7.0); Hematocrit 45.5 % (36.0-46.0); Hemoglobin 15.4 g/dL (12.2-16.2); Lymphocytes # (auto) 1.4 10 ^3/uL (0.4-5.4); Lymphocytes % (auto) 26.6 % (10.0-50.0); Mean Corpuscular Hemoglobin 31.4 pg (28.0-32.0); Mean Corpuscular Hgb Conc. 33.9 g/dL (32.0-36.0); Mean Corpuscular Volume 92.8 fL (80.0-100.0); Monocytes # (auto) 0.4 10 ^3/uL (0-1.3); Monocytes % (auto) 7.3 % (0.0-12.0); Neutrophils # (auto) 3.3 10 ^3/uL (1.6-8.6); Neutrophils % (auto) 60.7 % (37.0-80.0); Nucleated Red Blood Cells % 0.1 %; Platelet Count (auto) 210 10^3/uL (140-450); Red Blood Cells 4.91 10^6/uL (4.0-5.20); Red Cell Distribution Width 13.1 % (11.8-14.3); White Blood Cell 5.4 10^3/uL (4.4-10.8)
[2024-09-23 19:41] LABS: Anion Gap 6 (5-15); Calcium 9.6 mg/dL (8.7-10.4); Carbon Dioxide 28 mmol/L (20-31); Chloride 105 mmol/L (98-107); Potassium 3.8 mmol/L (3.5-5.1); Sodium 139 mmol/L (136-145)
[2024-09-23 19:46] LABS: Glucose 98 mg/dL (74-106)
[2024-09-23 19:48] LABS: BUN/Creatinine Ratio 20.7 (10.0-20.0); Blood Urea Nitrogen 17 mg/dL (9-23)
[2024-09-23] MEDS: ABILIFY 5MG TABLET PO SCH (20:52)
[2024-09-24 05:00] VITALS: BP 98/65; PULSE 71; RESP 19; TEMP 97.7; O2SAT 93
[2024-09-24 09:00] VITALS: BP 102/69; PULSE 77; RESP 20; TEMP 98.1; O2SAT 97
[2024-09-24 13:19] VITALS: BP 99/65; PULSE 97; RESP 20; TEMP 98; O2SAT 92
--- NOTE | 2024-09-24 15:56 | DVHPN2 ---
Assessment/Plan Assessment/Plan Progress note Subjective 59-year-old female admitted for chest pain, found to have cholelithiasis and right upper quadrant pain possibly related. seen by GI, s/p scans and EGD. medically stable to discharge, patient refusing to escalate diet, discussed with GI and she is cleared, however on discharge she reported suicidal thoughts. now pending voluntary transfer to inpatient psych. Patient seen by me today during rounds psych reeval for 5150 vs clearance for discharge. Objective Physical exam Alert, oriented x3 PERRLA Obese Clear breath sounds bilaterally S1-S2 regular rate and rhythm no murmur Abdomen distended, tender to palpation, no rebound no guarding Moving all four extremities No lower extremity edema Lab Troponin negative Lipase negative Hemoglobin 17 EKG NSR Imaging Right upper quadrant ultrasound with cholelithiasis Nonobs nephrolithiasis No AAA, ascites EGD 2-3 cm sliding-type hiatal hernia with grade B linear erosive esophagitis and distal esophageal ulcerations; no stricture or obstruct Mild to moderate gastroduodenitis Assessment and plan Abdominal pain Chest pain likely referred from above Cholelithiasis without cholecystitis URI ruled out dysphagia Suicidal ideation possible malingering reglan protonix maalox Advance diet as tolerated IV fluid No antibiotic at this moment GI consult appreciated s/p scope surgery consult appreciated advance diet as tolerated sitter for safety tele spych appreciated elopement precaution ensure voluntary transfer to acute inp psych encourage ambulation, OOBTC pending psych reeval minimize blood draws orthostatic vs ivhydration Replete electrolytes Diet soft DVT prophylaxis lovenox Plan discussed with: Patient My Orders Orders - PATTY TABARES MD Procedure Category Date Status Time Patients Own PHA 09/23/24 In Process Medication 22:00 *Tele Psych Consult CONS 09/24/24 Transmitted 14:55 Date of Service: Sep 24, 2024 Billing Provider: PATTY TABARES MD Common Visit Codes: [id number] INP/OBS CARE(MOD) PATTY TABARES MD Sep 24, 2024 15:56
[2024-09-24 17:00] VITALS: BP 97/61; PULSE 78; RESP 21; TEMP 97.5; O2SAT 92
--- NOTE | 2024-09-24 18:30 | DVHINCON2 ---
Date of Service if different f: Sep 24, 2024 Consultation ([facility]) Labs Laboratory Tests Test 08/26/24 14:40 08/27/24 06:34 08/29/24 08:38 09/02/24 05:01 Troponin I High Sensitivity < 3 ng/L (</=34) Lipase 31 U/L (12-53) Hepatitis B Surface Antibody Negative (Negative) Urine Color Yellow (Yellow) Urine Clarity Clear (Clear) Urine pH 5.5 (5.0-9.0) Urine Specific [place] 1.017 (1.001-1.035) Urine Protein Negative (Negative) Urine Ketones 1+ (Negative) Urine Blood Trace /uL (Negative) Urine Nitrite Negative (Negative) Urine Bilirubin Negative (Negative) Urine Urobilinogen Normal mg/dL (Negative) Urine Leukocyte Esterase 1+ /uL (Negative) Urine RBC 1 /hpf (0 - 4) Urine WBC 6 /hpf (0 - 5) Urine Squamous Epithelial Cells Few /hpf (<5) Urine Bacteria Few /hpf (None Seen) Urine Glucose Normal mg/dL (Normal) Urine Opiates Screen Neg (NEGATIVE) Urine Fentanyl Screen Neg (NEGATIVE) Urine Barbiturates Screen Neg (NEGATIVE) Urine Phencyclidine Screen Neg (NEGATIVE) Urine Amphetamines Screen Neg (NEGATIVE) Urine Benzodiazepines Screen Neg (NEGATIVE) Urine Cocaine Screen Neg (NEGATIVE) Urine Cannabinoids Screen Neg (NEGATIVE) Total Bilirubin 0.7 mg/dL (0.2-1.0) Aspartate Amino Transf (AST/SGOT) 14 U/L (13-40) Alanine Aminotransferase (ALT/SGPT) 15 U/L (7-40) Alkaline Phosphatase 81 U/L (46-116) Total Protein 6.4 g/dL (5.7-8.2) Albumin 3.9 g/dL (3.2-4.8) Test 09/13/24 05:02 09/23/24 15:39 09/23/24 18:40 Phosphorus Level 3.3 mg/dL (2.4-5.1) Magnesium Level 2.0 mg/dL (1.6-2.6) White Blood Count 5.4 10^3/uL (4.4-10.8) Red Blood Count 4.91 10^6/uL (4.0-5.20) Hemoglobin 15.4 g/dL (12.2-16.2) Hematocrit 45.5 % (36.0-46.0) Mean Corpuscular Volume 92.8 fL (80.0-100.0) Mean Corpuscular Hemoglobin 31.4 pg (28.0-32.0) Mean Corpuscular Hemoglobin Concent 33.9 g/dL (32.0-36.0) Red Cell Distribution Width 13.1 % (11.8-14.3) Platelet Count 210 10^3/uL (140-450) Mean Platelet Volume 9.2 fL (6.9-10.8) Neutrophils (%) (Auto) 60.7 % (37.0-80.0) Lymphocytes (%) (Auto) 26.6 % (10.0-50.0) Monocytes (%) (Auto) 7.3 % (0.0-12.0) Eosinophils (%) (Auto) 4.8 % (0.0-7.0) Basophils (%) (Auto) 0.6 % (0.0-2.0) Neutrophils # (Auto) 3.3 10 ^3/uL (1.6-8.6) Lymphocytes # (Auto) 1.4 10 ^3/uL (0.4-5.4) Monocytes # (Auto) 0.4 10 ^3/uL (0-1.3) Eosinophils # (Auto) 0.3 10 ^3/uL (0-0.8) Basophils # (Auto) 0 10 ^3/uL (0-0.2) Nucleated Red Blood Cells 0.1 % Sodium Level 139 mmol/L (136-145) Potassium Level 3.8 mmol/L (3.5-5.1) Chloride Level 105 mmol/L (98-107) Carbon Dioxide Level 28 mmol/L (20-31) Anion Gap 6 (5-15) Blood Urea Nitrogen 17 mg/dL (9-23) Creatinine 0.82 mg/dL (0.550-1.02) Glomerular Filtration Rate Calc 82 mL/min (>90) BUN/Creatinine Ratio 20.7 (10.0-20.0) Serum Glucose 98 mg/dL (74-106) Calcium Level 9.6 mg/dL (8.7-10.4) Appetite: Fair Appearance: Stated age Psychomotor activity: WNL Behavioral: Cooperative Eye contact: Appropriate Speech: WNL Affect: Irritable, Inappropriate to mood Mood: Depressed, Irritable Thought processes: Linear/Goal-directed Thought content: WNL Suicidal ideations: Absent Homicidal ideations: Absent Orientation: Person, Place, Time, Situation Memory intact: Recent Intellect: Average Abstractability: WNL Concentration: Adequate Attention: Adequate Judgement: Poor Insight: Poor Vitals Vital Signs Date Time Temp Pulse Resp B/P (MAP) Pulse Ox O2 Delivery O2 Flow Rate FiO2 09/24/24 17:00 97.5 78 21 97/61 (73) 92 97.5 09/24/24 08:00 Room Air* 0 21 Current medications Current Medications Medications Dose Ordered Sig/Rafael Route Start Time Stop Time Status Last Admin Dose Admin Acetaminophen 650 mg Q6HP PRN PO 08/26/24 18:30 09/23/24 20:52 650 MG Aspirin 81 mg DAILY PO 08/28/24 10:00 09/24/24 09:52 81 MG Sucralfate 1 gm QID@0600,1130,1700,2200 PO 09/02/24 17:00 09/24/24 17:36 1 GM Sertraline HCl 75 mg DAILY PO 09/05/24 10:00 09/24/24 09:51 75 MG Enteral Nutritional Formula 240 ml TIDWM PO 09/08/24 12:00 09/24/24 12:00 240 ML Polyethylene Glycol 17 gm DAILYPRN PRN PO 09/09/24 11:15 09/09/24 13:55 17 GM Meclizine HCl 25 mg Q8HPRN PRN PO 09/17/24 13:15 09/22/24 17:26 25 MG Pantoprazole Sodium 40 mg DAILY IV 09/18/24 10:00 09/24/24 09:51 40 MG Patient Own Medication 1 HS PO 09/23/24 22:00 09/23/24 20:52 1 Medication adjusted: Yes Diagnosis: Unspecified mood disorder Plan : Pt continues to report suicidal ideation, appears to be malingering for secondary gain and lack of housing Recommend discharge and follow up with outpatient resources continue sertraline 75mg po daily and Abilify 5mg po qhs. History of Present Illness Reason for Consult : follow up consult HPI : This is a 59-year-old female admitted on 09/04/24 for abdominal and chest pain later endorsing suicidal ideation. Pt was evaluated again today via telepsychiatry. On evaluation, was cooperative and engaged in interview. She reports feeling suicidal due to mom and boyfriend passing away 2 years ago. She reports she had plan about using phone cord to harm herself but waiting for placement. She denies homicidal thoughts. Discussed that social work has been unable to find placement and she reports "I've gone to psych hospital over, and over again and they have always been able to find placement" and she does not believe there is no placement. Patient denies auditory/visual hallucinations or paranoia. There are no sign of being preoccupied or responding to unseen stimuli. Past Psychiatric History : She reports suicide attempt at age 11, cut her wrist, and denies other suicide attempts. She reports multiple psych admissions in the past. She is receiving sertraline 75mg and reports that she started Abilify 5mg yesterday. She last followed with psychiatrist over 2 months ago. Past Medical History : Social History : Patient denies having her own housing now. She reports living with friend whom she met at a sober living. She was living at [facility] for 3 years prior to this, with her mom. She reports Donal is allowing her to live with him " at a property owned by [employer]." She cannot provide the address. She wants to find her housing in a longterm facility but has been unable to find one. She reports Donal is helping her to find one while here. Asked for consent to speak with Donal or any family members, she refused, reporting she does not want them to know she is here. DONNA POST DNP Sep 24, 2024 18:30
[2024-09-24 21:00] VITALS: BP 103/61; PULSE 79; RESP 18; TEMP 97.5; O2SAT 94
[2024-09-25] VITALS (7 sets, daily range): BP systolic 98–134; BP diastolic 57–71; PULSE 71–86; RESP 16–21; TEMP 97.7–98.1; O2SAT 91–98
--- NOTE | 2024-09-25 14:40 | DVHINCON2 ---
Date of Service if different f: Sep 25, 2024 Time of Service: 14:17 Consultation ([facility]) Consulting Physician: GEM FITZGERALD MD Labs Laboratory Tests Test 08/26/24 14:40 08/27/24 06:34 08/29/24 08:38 09/02/24 05:01 Troponin I High Sensitivity < 3 ng/L (</=34) Lipase 31 U/L (12-53) Hepatitis B Surface Antibody Negative (Negative) Urine Color Yellow (Yellow) Urine Clarity Clear (Clear) Urine pH 5.5 (5.0-9.0) Urine Specific [place] 1.017 (1.001-1.035) Urine Protein Negative (Negative) Urine Ketones 1+ (Negative) Urine Blood Trace /uL (Negative) Urine Nitrite Negative (Negative) Urine Bilirubin Negative (Negative) Urine Urobilinogen Normal mg/dL (Negative) Urine Leukocyte Esterase 1+ /uL (Negative) Urine RBC 1 /hpf (0 - 4) Urine WBC 6 /hpf (0 - 5) Urine Squamous Epithelial Cells Few /hpf (<5) Urine Bacteria Few /hpf (None Seen) Urine Glucose Normal mg/dL (Normal) Urine Opiates Screen Neg (NEGATIVE) Urine Fentanyl Screen Neg (NEGATIVE) Urine Barbiturates Screen Neg (NEGATIVE) Urine Phencyclidine Screen Neg (NEGATIVE) Urine Amphetamines Screen Neg (NEGATIVE) Urine Benzodiazepines Screen Neg (NEGATIVE) Urine Cocaine Screen Neg (NEGATIVE) Urine Cannabinoids Screen Neg (NEGATIVE) Total Bilirubin 0.7 mg/dL (0.2-1.0) Aspartate Amino Transf (AST/SGOT) 14 U/L (13-40) Alanine Aminotransferase (ALT/SGPT) 15 U/L (7-40) Alkaline Phosphatase 81 U/L (46-116) Total Protein 6.4 g/dL (5.7-8.2) Albumin 3.9 g/dL (3.2-4.8) Test 09/13/24 05:02 09/23/24 15:39 09/23/24 18:40 Phosphorus Level 3.3 mg/dL (2.4-5.1) Magnesium Level 2.0 mg/dL (1.6-2.6) White Blood Count 5.4 10^3/uL (4.4-10.8) Red Blood Count 4.91 10^6/uL (4.0-5.20) Hemoglobin 15.4 g/dL (12.2-16.2) Hematocrit 45.5 % (36.0-46.0) Mean Corpuscular Volume 92.8 fL (80.0-100.0) Mean Corpuscular Hemoglobin 31.4 pg (28.0-32.0) Mean Corpuscular Hemoglobin Concent 33.9 g/dL (32.0-36.0) Red Cell Distribution Width 13.1 % (11.8-14.3) Platelet Count 210 10^3/uL (140-450) Mean Platelet Volume 9.2 fL (6.9-10.8) Neutrophils (%) (Auto) 60.7 % (37.0-80.0) Lymphocytes (%) (Auto) 26.6 % (10.0-50.0) Monocytes (%) (Auto) 7.3 % (0.0-12.0) Eosinophils (%) (Auto) 4.8 % (0.0-7.0) Basophils (%) (Auto) 0.6 % (0.0-2.0) Neutrophils # (Auto) 3.3 10 ^3/uL (1.6-8.6) Lymphocytes # (Auto) 1.4 10 ^3/uL (0.4-5.4) Monocytes # (Auto) 0.4 10 ^3/uL (0-1.3) Eosinophils # (Auto) 0.3 10 ^3/uL (0-0.8) Basophils # (Auto) 0 10 ^3/uL (0-0.2) Nucleated Red Blood Cells 0.1 % Sodium Level 139 mmol/L (136-145) Potassium Level 3.8 mmol/L (3.5-5.1) Chloride Level 105 mmol/L (98-107) Carbon Dioxide Level 28 mmol/L (20-31) Anion Gap 6 (5-15) Blood Urea Nitrogen 17 mg/dL (9-23) Creatinine 0.82 mg/dL (0.550-1.02) Glomerular Filtration Rate Calc 82 mL/min (>90) BUN/Creatinine Ratio 20.7 (10.0-20.0) Serum Glucose 98 mg/dL (74-106) Calcium Level 9.6 mg/dL (8.7-10.4) Appetite: Fair Appearance: Stated age Psychomotor activity: WNL Behavioral: Cooperative Eye contact: Appropriate Speech: WNL Affect: Mood Congruent, Irritable, Inappropriate to mood Mood: Depressed, Dysphoric, Irritable Thought processes: Linear/Goal-directed Thought content: Hallucinations Suicidal ideations: Present Homicidal ideations: Absent Orientation: Person, Place, Time, Situation Memory intact: Recent Intellect: Average Abstractability: WNL Concentration: Adequate Attention: Adequate Judgement: Poor Insight: Poor Vitals Vital Signs Date Time Temp Pulse Resp B/P (MAP) Pulse Ox O2 Delivery O2 Flow Rate FiO2 09/25/24 12:39 98.0 82 21 134/71 (92) 98 98.0 09/25/24 08:00 Room Air* 0 21 Current medications Current Medications Medications Dose Ordered Sig/Rafael Route Start Time Stop Time Status Last Admin Dose Admin Acetaminophen 650 mg Q6HP PRN PO 08/26/24 18:30 09/24/24 21:19 650 MG Aspirin 81 mg DAILY PO 08/28/24 10:00 09/25/24 10:17 81 MG Sucralfate 1 gm QID@0600,1130,1700,2200 PO 09/02/24 17:00 09/25/24 10:15 1 GM Sertraline HCl 75 mg DAILY PO 09/05/24 10:00 09/25/24 10:16 75 MG Enteral Nutritional Formula 240 ml TIDWM PO 09/08/24 12:00 09/25/24 10:20 240 ML Polyethylene Glycol 17 gm DAILYPRN PRN PO 09/09/24 11:15 09/09/24 13:55 17 GM Meclizine HCl 25 mg Q8HPRN PRN PO 09/17/24 13:15 09/22/24 17:26 25 MG Pantoprazole Sodium 40 mg DAILY IV 09/18/24 10:00 09/25/24 10:15 40 MG Patient Own Medication 1 HS PO 09/23/24 22:00 09/24/24 21:15 1 Treatment plan discussed: With staff Medication adjusted: Yes Labs ordered: No Psychotherapy provided: No Type: 72 hour hold History of Present Illness Reason for Consult :psychiatric evaluation for suicidal ideation PSYCHIATRIST HPI: The patient was seen and evaluated at [facility] Floor via telepsychiatry platform. 59 yr old female was admitted 08/26/24 for abdominal and chest pain. She was cleared medically but stated she felt suicidal and was evaluated by [facility]MP Marcos who recommended her for voluntary admission to behavioral health unit. She was subsequently seen by [facility] Marcos four more times, last on 09/24 and reported persistent suicidal ideation. On the last 09/24 evaluation, she was recommended for discharge, but continued to state she had suicidal ideation. Hospitalist Dr Dean consulted for second opinion regarding her. Since she was recommended for voluntary admission, the hospital was un successful in getting her transferred to [facility] on voluntary status. Today, she reported she doesn't feel very well. She noted she has felt suicidal off and on the past three years. Two years ago her mother and she went into a bad depression. She reported low energy, has dizzy spells, feels nauseated. she reported having anhedonia and has a hard time having fun. She feels sad and doesn't want to live. She stated she had thought about cutting her wrist or walking into traffic. She stated "This is the worst I have felt suicidal in my life." She reported that she thinks she would kill herself if she left the hospital. She reported occasionally hearing voices. She heard voices yesterday which said "Go ahead and do it." She denied having HI/AVH. Past Psychiatric History : Several hospitalizations in past three years. Last hospitalized about a year ago. One past suicide attempt by cutting wrist and taking pills at age 11. Diagnosed with schizoaffective disorder. Current Psychotropic medications: nitroglycerin for chest pain, BP medication, Zoloft 75mg qhs, abilify 5mg qam Past Medical History : abdominal and chest pain Substance Use: Denied us of alcohol and other drug use currently. She reported past use of meth from age [age] when she used it daily. SHe stopped because ex- boyfriend overdosed. Social History : Lives in [place] with roommate. for three years. Two children who live in [place]. Worked in [employer]. DIAGNOSIS: SCHIZOAFFECTIVE DISORDER, DEPRESSED TYPE Formulation: This 59 yr old female appears to suffer from schizoaffective disorder and is currently very depressed and suicidal. She warrants admission to behavioral health unit and meets criteria for involuntary hospitalization on basis of danger to self. She may benefit from increasing zoloft to 100mg. Plan: 1. Transfer to behavioral health unit when bed available. 2. Legal-initiate involuntary 5150 hold for danger to self. Monitor for safety.. 3. Medications: Recommend increasing Zoloft to 100mg daily and continue Abilify 5mg qam. 4. Case discussed with Hospitalist Dr Dean. 5. Please recontact psychiatry for further follow up or reevaluation. Assessment/Diagnosis/Plan Reviewed: Labs, Medications, Previous Orders GEM FITZGERALD MD Sep 25, 2024 14:40
--- NOTE | 2024-09-25 21:36 | DVHPN2 ---
Assessment/Plan Assessment/Plan Progress note Subjective 59-year-old female admitted for chest pain, found to have cholelithiasis and right upper quadrant pain possibly related. seen by GI, s/p scans and EGD. medically stable to discharge, patient refusing to escalate diet, discussed with GI and she is cleared, however on discharge she reported suicidal thoughts. now pending voluntary transfer to inpatient psych. Patient seen by me today during rounds psych reeval, discussed case with dr Harris. patient to be placed on 72 hour hold. for involuntary transfer. actively halucinating Objective Physical exam Alert, oriented x3 PERRLA Obese Clear breath sounds bilaterally S1-S2 regular rate and rhythm no murmur Abdomen distended, tender to palpation, no rebound no guarding Moving all four extremities No lower extremity edema Lab Troponin negative Lipase negative Hemoglobin 17 EKG NSR Imaging Right upper quadrant ultrasound with cholelithiasis Nonobs nephrolithiasis No AAA, ascites EGD 2-3 cm sliding-type hiatal hernia with grade B linear erosive esophagitis and distal esophageal ulcerations; no stricture or obstruct Mild to moderate gastroduodenitis Assessment and plan Abdominal pain Chest pain likely referred from above Cholelithiasis without cholecystitis URI ruled out dysphagia Suicidal ideation with auditory hallucination schizoaffective disorder reglan protonix maalox Advance diet as tolerated IV fluid No antibiotic at this moment GI consult appreciated s/p scope surgery consult appreciated advance diet as tolerated sitter for safety tele spych appreciated elopement precaution ensure involuntary transfer to acute inp psych 5150 hold encourage ambulation, OOBTC minimize blood draws orthostatic vs ivhydration Replete electrolytes Diet soft DVT prophylaxis lovenox Plan discussed with: Patient My Orders Orders - PATTY TABARES MD Procedure Category Date Status Time *Tele Psych Consult CONS 09/25/24 Transmitted 11:52 * Nut [employer]acker CONS 09/25/24 Transmitted Consult Sertraline Hcl PHA 09/26/24 In Process (Zoloft) 22:00 Date of Service: Sep 25, 2024 Billing Provider: PATTY TABARES MD Common Visit Codes: [id number] INP/OBS CARE(HIGH) PATTY TABARES MD Sep 25, 2024 21:36
[2024-09-26] VITALS (8 sets, daily range): BP systolic 89–107; BP diastolic 60–71; PULSE 68–76; RESP 16–19; TEMP 97.6–98.3; O2SAT 91–97
[2024-09-26] MEDS: ACETAMINOPHEN 325 MG TAB PO ONE (07:13)
--- NOTE | 2024-09-26 20:11 | DVHPN2 ---
Assessment/Plan Assessment/Plan Progress note Subjective 59-year-old female admitted for chest pain, found to have cholelithiasis and right upper quadrant pain possibly related. seen by GI, s/p scans and EGD. medically stable to discharge, patient refusing to escalate diet, discussed with GI and she is cleared, however on discharge she reported suicidal thoughts. now pending voluntary transfer to inpatient psych. Patient seen by me today during rounds psych reeval, discussed case with dr Harris. patient to be placed on 72 hour hold. for involuntary transfer. actively halucinating, increased sertraline to 100 Objective Physical exam Alert, oriented x3 PERRLA Obese Clear breath sounds bilaterally S1-S2 regular rate and rhythm no murmur Abdomen distended, tender to palpation, no rebound no guarding Moving all four extremities No lower extremity edema Lab Troponin negative Lipase negative Hemoglobin 17 EKG NSR Imaging Right upper quadrant ultrasound with cholelithiasis Nonobs nephrolithiasis No AAA, ascites EGD 2-3 cm sliding-type hiatal hernia with grade B linear erosive esophagitis and distal esophageal ulcerations; no stricture or obstruct Mild to moderate gastroduodenitis Assessment and plan Abdominal pain Chest pain likely referred from above Cholelithiasis without cholecystitis URI ruled out dysphagia Suicidal ideation with auditory hallucination schizoaffective disorder reglan protonix maalox Advance diet as tolerated IV fluid No antibiotic at this moment GI consult appreciated s/p scope surgery consult appreciated advance diet as tolerated sitter for safety tele spych appreciated elopement precaution ensure involuntary transfer to acute inp psych 5150 hold encourage ambulation, OOBTC minimize blood draws orthostatic vs ivhydration sertraline, abilify Replete electrolytes Diet soft DVT prophylaxis lovenox Plan discussed with: Patient My Orders Orders - PATTY TABARES MD Procedure Category Date Status Time Mrsa Screen PABLO 09/26/24 In Process 11:10 Date of Service: Sep 26, 2024 Billing Provider: PATTY TABARES MD Common Visit Codes: [id number] INP/OBS CARE(MOD) PATTY TABARES MD Sep 26, 2024 20:11
[2024-09-26 21:18] LABS: Urine Bacteria None Seen /hpf (None Seen)
[2024-09-26 21:27] LABS: Urine Blood Negative /uL (Negative); Urine Clarity Turbid (Clear); Urine Color Light-Yellow (Yellow); Urine Protein, UAD Negative (Negative); Urine Specific Gravity 1.016 (1.001-1.035); Urine Squamous Epithelial Cell FEW /hpf (<5); Urine Urobilinogen Normal (Negative); Urine WBC 10 /hpf (0 - 5); Urine pH 5.5 (5.0-9.0)
[2024-09-26] MEDS: SERTRALINE HCL 50 MG TAB PO SCH (23:09)
[2024-09-27 05:00] VITALS: BP 114/73; PULSE 86; RESP 18; TEMP 98.3; O2SAT 92
[2024-09-27 08:00] VITALS: PULSE 70; RESP 17
[2024-09-27 09:00] VITALS: BP 103/70; PULSE 78; RESP 16; TEMP 97.6; O2SAT 96
[2024-09-27 13:00] VITALS: BP 99/50; PULSE 72; RESP 16; TEMP 97.6; O2SAT 95
--- NOTE | 2024-09-27 15:01 | DVHPN2 ---
Assessment/Plan Assessment/Plan Progress note Subjective 59-year-old female admitted for chest pain, found to have cholelithiasis and right upper quadrant pain possibly related. seen by GI, s/p scans and EGD. medically stable to discharge, patient refusing to escalate diet, discussed with GI and she is cleared, however on discharge she reported suicidal thoughts. now pending voluntary transfer to inpatient psych. Patient seen by me today during rounds pending involuntary transfer to acute inpatient psych. last info phuong hernandez accepting Objective Physical exam Alert, oriented x3 PERRLA Obese Clear breath sounds bilaterally S1-S2 regular rate and rhythm no murmur Abdomen distended, tender to palpation, no rebound no guarding Moving all four extremities No lower extremity edema Lab Troponin negative Lipase negative Hemoglobin 17 EKG NSR Imaging Right upper quadrant ultrasound with cholelithiasis Nonobs nephrolithiasis No AAA, ascites EGD 2-3 cm sliding-type hiatal hernia with grade B linear erosive esophagitis and distal esophageal ulcerations; no stricture or obstruct Mild to moderate gastroduodenitis Assessment and plan Abdominal pain Chest pain likely referred from above Cholelithiasis without cholecystitis URI ruled out dysphagia Suicidal ideation with auditory hallucination schizoaffective disorder reglan protonix maalox Advance diet as tolerated IV fluid No antibiotic at this moment GI consult appreciated s/p scope surgery consult appreciated advance diet as tolerated sitter for safety tele spych appreciated elopement precaution ensure involuntary transfer to acute inp psych 5150 hold encourage ambulation, OOBTC minimize blood draws orthostatic vs ivhydration sertraline, abilify Replete electrolytes Diet soft DVT prophylaxis lovenox Plan discussed with: Patient Date of Service: Sep 27, 2024 Billing Provider: PATTY TABARES MD Common Visit Codes: [id number] INP/OBS CARE(MOD) PATTY TABARES MD Sep 27, 2024 15:01
[2024-09-27 17:00] VITALS: BP 117/69; PULSE 75; RESP 16; TEMP 97.6; O2SAT 94
[2024-09-27] MEDS: PNEUMOCOCCAL VACC POLYS 25 MCG/0.5 ML VIAL IM ONE (17:03)
[2024-09-27] MEDS: INFLUENZA TRIVALENT 2024-2025 0.5 ML INJ IM ONE (17:04)
== END 2024-09-27 17:40 | disposition short-term general hospital (02) ==
LOC: ER 14:27 → EDBD 14:27 → OVERFLOW 18:23 → WEST WING 08-27 01:39 → TELE-WESTW 08-27 04:13 → WEST WING 08-27 09:51 → CENTRAL 09-11 20:20
PROVIDERS: ADMIT Student in an Organized Health Care Education/Training Program; ATTEND Student in an Organized Health Care Education/Training Program
PROC: 0DB68ZX Excision of Stomach, Via Natural or Artificial Opening Endoscopic, Diagnostic (ICD-10-PCS; 2024-09-02)
PROC: 0DB58ZX Excision of Esophagus, Via Natural or Artificial Opening Endoscopic, Diagnostic (ICD-10-PCS; 2024-09-02)
PROC: 0DB98ZX Excision of Duodenum, Via Natural or Artificial Opening Endoscopic, Diagnostic (ICD-10-PCS; principal; 2024-09-02 11:32)
DX: K80.20 Calculus of gallbladder without cholecystitis without obstruction (principal); R45.851 Suicidal ideations; K76.0 Fatty (change of) liver, not elsewhere classified; F25.1 Schizoaffective disorder, depressive type; K29.90 Gastroduodenitis, unspecified, without bleeding; K29.70 Gastritis, unspecified, without bleeding; K22.10 Ulcer of esophagus without bleeding; K29.80 Duodenitis without bleeding; I10 Essential (primary) hypertension; E66.01 Morbid (severe) obesity due to excess calories; K44.9 Diaphragmatic hernia without obstruction or gangrene; N39.0 Urinary tract infection, site not specified; F32.A Depression, unspecified; K21.9 Gastro-esophageal reflux disease without esophagitis; Z91.51 Personal history of suicidal behavior; I25.2 Old myocardial infarction; Z82.49 Family history of ischemic heart disease and other diseases of the circulatory system; Z68.41 Body mass index [BMI] 40.0-44.9, adult
CPT/HCPCS: 36415; 43239; 74177; 74250; 76705; 76775; 78226; 80048; 80053; 80307; 81001; 82140; 82247; 83690; 83735; 84100; 84484; 85025; 86706; 87081; 93005; 97116; 97163; 97530; G0378; J2250; J2405; J2470

== ENCOUNTER 2025-08-28 12:35 | Inpatient (IN) | payer MEDICAID ==
[~2025-08-28] VITALS: Ht 170.2 cm; Wt 125.1 kg
[~2025-08-28 12:35] MED LIST changes: +METO5TAB67 PO; +PANT40TA2 PO; +SUCR1SUS26 PO
--- NOTE | 2025-08-28 13:09 | ED.PDOC ---
HPI Comments HPI: Tony 60 y.o female presents to the ED via EMS for a chief complaint of left sided chest pain that started 2 days ago with new onset of dizziness x 1 day and nausea with vomiting upon arrival. 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 Patient states pain is the same one she experienced when she had an [place] in 2021. Pain worsens on deep inspiration. Patient took 500mg Tylenol yesterday and low dose ASA today with no pain relief. EMS placed patient on oxygen for comfort measures. Viral signs for EMS on scene were stable. Initial Vitals BP: 151/77 HR:87 RR: 20 O2 Sat: 96% Temp:98.1 F Past Medical history: [place] x 2021, HTN Past Surgical history: PTCA Social History: Denies smoking, ETOH, and drug use. Allergies: NKDA `` TONY: LEFT CHEST PAIN SIMILAR TO [place], SPINNING SENSATION WITH THE ASSOCIATED NAUSEA AND VOMITING. RECENT CHEST TUMOR BIOPSY. PAIN WAS MOVEMENT OF THE UPPER EXTREMITIES A DEEP INSPIRATION. OBESE, NORMAL EXAM HPI: Poor Historian. REVIEW OF SYSTEMS: CONSTITUTIONAL: Denies acute: fever, diaphoresis, chills, HEAD: Denies acute: headache, photophobia Eyes: Denies acute: Double vision, vision loss, eye pain, eye discharge. EARS: Denies acute: tinnitus, hearing loss, ear discharge, ear pain, THROAT: Denies acute: sore throat, swelling, difficulty swallowing , pain with swallowing, change in voice. NECK: Denies acute: neck pain, neck swelling, stiff neck. HEART: Denies acute : , palpitations, LUNGS: Denies acute: SOB, wheezing, cough, hemoptysis ABDOMEN: Denies acute: abdominal pain, diarrhea, melena , hematemesis, hematochezia SKIN: Denies acute: rash, redness, lesions, itchiness. EXTREMITIES: Denies acute: calf pain, numbness, tingling, weakness, denies pain in extremity. Denies acute: Low back pain. Neuro: Denies acute: focal neurological deficit, motor or sensory focal neurological deficit, tremors, seizure like activity, confusion, change in mental status, loss of bowel or bladder function, cauda equina like symptoms. : Denies acute: dysuria, hematuria, flank pain, increase in urinary frequency. PSYCH: Denies acute: hallucination, suicidal ideation, homicidal ideation. FEMALE: Denies acute: abnormal vaginal bleeding, foul odor, unusual discharge. PHYSICAL EXAM: General: -----moderate---acute distress, awake and alert. Head: normocephalic, atraumatic. No raccoon's eyes, no fuller sign. Neck: supple, trachea is midline, no swelling. Throat: Normal phonation. Eyes:, no erythema, no purulent discharge, no proptosis, no icterus. Heart: regular rate, regular rhythm, no significant murmur appreciated. Lungs: no apparent respiratory distress, Able to speak in full sentences. No wheezing, no rhonchi, no crackles. No stridors Clear to auscultation bilaterally. Abdomen: non tender to palpation, non distended, soft, no guarding, no rebound, + bowel sounds. Morbidly obese Chest wall is tender to palpation in the area of complaint. Neuro: Awake, Alert, oriented to name, self, situation, follows commands GCS=15. Speech is normal. Skin: no petechia, no purpura, no cyanosis, non-pale, not jaundice. Lower extremities: --trace bilateral - Pitting edema no deformity, no focal swelling, no calf TTP. Makes eye contact. moves all four extremities. Face: no apparent facial droop. PERRLA, EOM-I CN 2-12 are grossly intact, No nystagmus. No nuchal rigidity, Kernig's sign, Brudzinski's sign, no meningeal signs. ED COURSE: DISCLAIMER: This medical document was created using an electronic medical record system with voice recognition software and computerized dictation system. Although this document has been carefully reviewed, there might still be some phonetic and typographical errors. Occasional wrong-word or "sound-alike" substitutions may have occurred due to the inherent limitations of voice recognition software. These areas are purely typographical due to imperfections of the software programs and do not reflect any compromise in the patient's medical care. Please read the chart carefully and recognize, using context, where these substitutions have occurred. Chief Complaint: Breast pain Time Seen by MD: 12:54 Reviewed Notes: Db2 Dba Notes, Medications, Allergies Allergies: Coded Allergies: NO KNOWN ALLERGIES (Unverified , 08/26/24) Home Meds Active Scripts Aripiprazole (Abilify) 2 Mg Tab, 5 MG PO HS for 30 Days, #75 TAB Prov:PATTY TABARES MD 09/20/24 Sucralfate (CARAFATE SUSP) 1 Gm/10 Ml Ss, 10 ML PO QID for 30 Days, #1200 ML 3 Refills Prov:PATTY TABARES MD 09/03/24 Metoclopramide Hcl (Reglan) 5 Mg Tab, 5 MG PO Q8HPRN PRN for 10 Days, #30 TAB Prov:PATTY TABARES MD 09/03/24 Pantoprazole Sodium Sesquihydr (Protonix) 40 Mg Tab, 40 MG PO BID for 30 Days, #60 TAB Prov:PATTY TABARES MD 09/03/24 Reported Medications Lidocaine (Ztlido) 1.8 % Pad, 1 PAD TOP DAILY for 30 Days, #30 08/27/24 Rosuvastatin Calcium (Crestor) 20 Mg Tab, 1 TAB PO DAILY for 30 Days, #30 08/27/24 Aspirin (Aspirin Low Dose) 81 Mg Chw, 1 TAB PO DAILY for 30 Days, #30 08/27/24 Aripiprazole (Abilify) 2 Mg Tab, 1 TAB PO DAILY for 30 Days, #30 08/27/24 Sertraline Hcl (Sertraline Hcl) 50 Mg Tab, 1 TAB PO DAILY for 30 Days, #30 08/27/24 Metoprolol Succinate (Metoprolol Succinate Er) 25 Mg Tab, 1 TAB PO DAILY for 30 Days, #30 08/27/24 Information Source: Patient, Emergency Med Personnel Mode of Arrival: EMS EKG EKG : Pulse Rate (adult): 80 Cardiac Rhythm: NSR Was a procedure done? Was a procedure done?: No CP Differential Dx Differential Diagnosis: Other (As far as dizziness: Anemia, CVA, dehydration, dysrhythmia, electrolyte imbalance, encephalopathy, Guillain-Oak, hypoglycemia, hypotension, hypovolemia, Meniere's disease, myasthenia gravis, [place], pulmonary embolus, renal failure, respiratory failure, TIA, VPI, vertigo central, vertigo peripheral, vestibular neuronitis), N/A Differential Diagnosis: Angina, Chest Wall Pain, Cholelithiasis, Costochondritis, Esophageal reflux/spasm, Gastritis, Myocardial Infarction, Pericarditis, Other (Ddx include but not limitied to gastritis, musculoskeletal pain, radiculopathy, atypical chest pain, dissection, aneurysm, ACS, unstable angina, hiatal hernia, GERD, anxiety, costochondritis, PE, pneumothroax, neoplasm, cardiac ischemia, drug abuse, anemia.) X-Ray, Labs, Meds, VS Vital Signs Date Time Temp Pulse Resp B/P (MAP) Pulse Ox O2 Delivery O2 Flow Rate FiO2 08/28/25 13:10 80 08/28/25 12:51 98.1 87 20 151/77 96 98.1 08/28/25 12:36 80 Lab Test 08/28/25 14:15 08/28/25 13:30 Range/Units Troponin I High Sensitivity < 3 L < 3 L </=34 ng/L White Blood Count 11.2 H 4.4-10.8 10^3/uL Red Blood Count 5.37 H 4.0-5.20 10^6/uL Hemoglobin 16.6 H 12.2-16.2 g/dL Hematocrit 49.7 H 36.0-46.0 % Mean Corpuscular Volume 92.5 80.0-100.0 fL Mean Corpuscular Hemoglobin 30.9 28.0-32.0 pg Mean Corpuscular Hemoglobin Concent 33.4 32.0-36.0 g/dL Red Cell Distribution Width 13.4 11.8-14.3 % Platelet Count 220 140-450 10^3/uL Mean Platelet Volume 9.1 6.9-10.8 fL Neutrophils (%) (Auto) 69.0 37.0-80.0 % Lymphocytes (%) (Auto) 20.3 10.0-50.0 % Monocytes (%) (Auto) 9.3 0.0-12.0 % Eosinophils (%) (Auto) 0.8 0.0-7.0 % Basophils (%) (Auto) 0.6 0.0-2.0 % Neutrophils # (Auto) 7.7 1.6-8.6 10 ^3/uL Lymphocytes # (Auto) 2.3 0.4-5.4 10 ^3/uL Monocytes # (Auto) 1.0 0-1.3 10 ^3/uL Eosinophils # (Auto) 0.1 0-0.8 10 ^3/uL Basophils # (Auto) 0.1 0-0.2 10 ^3/uL Nucleated Red Blood Cells 0.1 % Sodium Level 137 136-145 mmol/L Potassium Level 4.1 3.5-5.1 mmol/L Chloride Level 103 98-107 mmol/L Carbon Dioxide Level 24 20-31 mmol/L Anion Gap 10 5-15 Blood Urea Nitrogen 9 9-23 mg/dL Creatinine 0.98 0.550-1.02 mg/dL Glomerular Filtration Rate Calc 66 >90 mL/min BUN/Creatinine Ratio 9.2 L 10.0-20.0 Serum Glucose 116 H 74-106 mg/dL Lactic Acid Level 1.7 0.4-2.0 mmol/L Calcium Level 9.3 8.7-10.4 mg/dL Magnesium Level 2.3 1.6-2.6 mg/dL Total Bilirubin 0.9 0.2-1.0 mg/dL Aspartate Amino Transferase (AST) 27 13-40 U/L Alanine Aminotransferase (ALT) 41 H 7-40 U/L Alkaline Phosphatase 104 46-116 U/L B-Type Natriuretic Peptide 10.20 0-100 pg/mL Total Protein 7.5 5.7-8.2 g/dL Albumin 4.4 3.2-4.8 g/dL Lipase 27 12-53 U/L Current Medications Medications (Trade) Dose Ordered Sig/Rafael Route Start Time Stop Time Status Last Admin Meclizine HCl (Antivert Tablet) 25 mg ONCE ONCE PO 08/28/25 13:00 08/28/25 13:01 DC 08/28/25 14:01 Sodium Chloride 1,000 ml @ 1,000 mls/hr Q1H ONCE IV 08/28/25 13:00 08/28/25 13:59 DC 08/28/25 14:04 Ondansetron HCl (Zofran) 8 mg ONCE ONCE IV 08/28/25 13:00 08/28/25 13:01 DC 08/28/25 14:04 Aspirin (Ecotrin Enteric Coated Tablet) 325 mg ONCE ONCE PO 08/28/25 13:00 08/28/25 13:01 DC 08/28/25 14:01 Acetaminophen (Tylenol Tablet) 325 mg Q4HP PRN PO 08/28/25 15:30 08/28/25 16:59 Nitroglycerin (Ntrostat Sublingual) 0.4 mg Q5MINP PRN SL 08/28/25 15:30 08/28/25 19:52 [place] [address] Ph: [phone] DIAGNOSTIC IMAGING Diagnostic Imaging Report : [id number] Signed PATIENT: MILTON JIMENEZACCT: [id number] UNIT: [id number] : 1965 LOC: ER ROOM / BED: / AGE / SEX: 60 / F ADM STATUS: REG ER SERVICE 1259 ORDERING PHYSICIAN: GARY CHARLES DO PROCEDURE(s): CXRP - CHEST PORTABLE REASON: cp ORDER NUMBER(s): [id number], ACCESSION NUMBER(s): [id number] CLINICAL HISTORY: cp TECHNIQUE: AP view of the chest was obtained. WID: COMPARISON: None FINDINGS: Lungs: clear Cardiomediastinal silhouette: normal in size Bones: No acute osseous abnormality. Imaged Upper Abdomen: unremarkable. IMPRESSION: NO ACUTE CARDIOPULMONARY PROCESS. ATED BY: PAULA LANGLEY MD DICTATED DATE/TIME: 08/28/251337 SIGNED BY: PAULA LANGLEY MD SIGNED DATE/TIME: 08/28/25 133 CC: Time of 1ST Reevaluation: 13:03 Reevaluation 1ST: Unchanged Patient Education/Counseling: Diagnosis, Treatment, Prognosis Family Education/Counseling: No Family Present Departure 1 Departure Time of Disposition: 14:31 Impression: Primary Impression: Chest pain Additional Impression: Vertigo Disposition: 09 ADMITTED INPATIENT Admit to: Tele Condition: Guarded Discharged With: Self Critical Care Note Critical Care Time?: No Heart Score Heart Score: Heart Score Response (Comments) Value History Moderate Suspicious 1 EKG Normal 0 Age 45-64 1 Risk Factors >3 or Hx ASHD 2 Troponin Normal limit 0 Total 4 I personally scribed for GARY CHARLES DO ([email or web address]) on 08/28/25 at 13:09. Electronically submitted by Deidra Cherry ([facility]). I personally scribed for GARY CHARLES DO ([facility]) on 08/28/25 at 13:10. Electronically submitted by Deidra Cherry ([facility]). I personally scribed for GARY CHARLES DO ([facility]) on 08/28/25 at 20:03. Electronically submitted by Deidra Cherry ([facility]). GARY CHARLES DO Aug 28, 2025 13:09
--- NOTE | 2025-08-28 13:38 | DVH ---
CLINICAL HISTORY: cp TECHNIQUE: AP view of the chest was obtained. WID: COMPARISON: None FINDINGS: Lungs: clear Cardiomediastinal silhouette: normal in size Bones: No acute osseous abnormality. Imaged Upper Abdomen: unremarkable. IMPRESSION: NO ACUTE CARDIOPULMONARY PROCESS.
[2025-08-28 13:53] LABS: Hematocrit 49.7 % (36.0-46.0); Hemoglobin 16.6 g/dL (12.2-16.2); Mean Corpuscular Hemoglobin 30.9 pg (28.0-32.0); Mean Corpuscular Volume 92.5 fL (80.0-100.0); Nucleated Red Blood Cells % 0.1 %
[2025-08-28] MEDS: MECLIZINE HCL 25 MG TAB PO ONE (14:01)
[2025-08-28] MEDS: ASPirin-EC 325mg tab PO ONE (14:01)
[2025-08-28] MEDS: SODIUM CHLORIDE 0.9% 1,000 ML IV ONE (14:04)
[2025-08-28] MEDS: ONDANSETRON HCL 4 MG/2 ML VIAL IV ONE (14:04)
[2025-08-28 14:06] LABS: Alanine Aminotransferase 41 U/L (7-40); Albumin 4.4 g/dL (3.2-4.8); Alkaline Phosphatase 104 U/L (46-116); Anion Gap 10 (5-15); BUN/Creatinine Ratio 9.2 (10.0-20.0); Blood Urea Nitrogen 9 mg/dL (9-23); Calcium 9.3 mg/dL (8.7-10.4); Carbon Dioxide 24 mmol/L (20-31); Chloride 103 mmol/L (98-107); Glucose 116 mg/dL (74-106); Potassium 4.1 mmol/L (3.5-5.1); Sodium 137 mmol/L (136-145); Total Protein 7.5 g/dL (5.7-8.2)
[2025-08-28 14:07] LABS: Bilirubin, Total 0.9 mg/dL (0.2-1.0)
--- NOTE | 2025-08-28 15:28 | DVHHP2 ---
History of Present Illness Reason for Visit: chest pain History of Present Illness 60-year-old female with past medical history significant for myocardial infarction in 2021, gastritis, gallstones, abdominal hernia status post surgical repair with mesh, and a left breast tumor status post biopsy (results pending) presents with left chest wall pain for the past two days. Patient describes the pain as a pressure-like and sharp pain, constant in nature, with no alleviating or aggravating factors. She reports worsening pain with deep inspiration and an associated cough producing green-colored sputum, without hemoptysis. She also reports left leg swelling greater than the right. She states she is currently pr eparing for a cardiac stent placement at [facility] per pt. She received aspirin in the ED, which helped improve her chest pain symptoms. She denies syncope but reports pleuritic discomfort. while in ED evaluation included administration of aspirin, Zofran, and magnesium. Laboratory studies showed WBC 11.2, lactate 1.7, troponin negative, and BNP negative. CMP otherwise unremarkable. Chest X-ray unremarkable. Given pleuritic chest pain, unilateral leg swelling, and cardiac history, cardiology was consulted. Plan includes evaluation for DVT and pulmonary embolism, cardiac workup, and telemetry monitoring. Patient will be admitted for further evaluation and management. Past Medical History See HPI above Past Surgical History See HPI above Family History Reviewed, non-contributory to the management of this case. Past Social History The patient lives at home, denies smoking, alcohol or illicit drugs abuse. Review of Systems Constitutional: No: Fever, Chills, Sweats, Weakness, Malaise, Other Eyes: No: Pain, Vision change, Conjunctivae inflammation, Eyelid inflammation, Other, Redness ENT: No: Ear pain, Ear discharge, Nose pain, Nose discharge, Nose congestion, Mouth pain, Mouth swelling, Throat pain, Throat swelling, Other Respiratory: Shortness of breath, SOB with excertion; No: Cough, Dry, Wheezing, Hemoptysis, Pleuritic Pain, Sputum, Wheezing, Other Cardiovascular: Chest Pain; No: Palpitations, Orthopnea, Paroxysmal Noc. Dyspnea, Edema, Lt Headedness, Other Gastrointestinal: No: Nausea, Vomiting, Abdominal Pain, Diarrhea, Constipation, Melena, Hematochezia, Other Genitourinary: No Dysuria, No Frequency, No Incontinence, No Hematuria, No Retention, No Other Musculoskeletal: No: other, neck pain, shoulder pain, arm pain, back pain, hand pain, leg pain, foot pain Skin: No: Rash, Lesions, Jaundice, Bruising, Other Neurological: No: Weakness, Numbness, Incoordination, Change in speech, Confusion, Seizures, Other Allergies: Coded Allergies: NO KNOWN ALLERGIES (Unverified , 08/26/24) Exam Vital Signs Vital Signs Date Time Temp Pulse Resp B/P (MAP) Pulse Ox O2 Delivery O2 Flow Rate FiO2 08/28/25 13:10 80 08/28/25 12:51 98.1 20 151/77 96 98.1 General Appearance: Alert, Oriented X3, Cooperative, No acute distress HEENT: Atraumatic, PERRLA, EOMI, Mucous membr. moist/pink Respiratory: Clear to auscultation, Normal air movement Cardiovascular: Regular rate, Normal S1, Normal S2, No murmurs Abdominal: Normal bowel sounds, Soft, No tenderness, No hepatospenomegaly, No masses Extremities: No clubbing, No cyanosis, No edema, Normal pulses, No tenderness/swelling Skin: No rashes, No breakdown, No significant lesion Neuro: Normal gait, Normal speech, Strength at 5/5 X4 ext, Normal tone, Sensation intact, Cranial nerves 3-12 NL Psych/Mental Status: Mental status NL, Mood NL Labs/Xrays Chest x-ray unremarkable I reviewed labs, imaging CT scan abdomen pelvis, EKG and all diagnostic studies on this patient from ED records and the medical chart Labs Test 08/28/25 14:15 08/28/25 13:30 Range/Units Troponin I High Sensitivity < 3 L </=34 ng/L White Blood Count 11.2 H 4.4-10.8 10^3/uL Red Blood Count 5.37 H 4.0-5.20 10^6/uL Hemoglobin 16.6 H 12.2-16.2 g/dL Hematocrit 49.7 H 36.0-46.0 % Mean Corpuscular Volume 92.5 80.0-100.0 fL Mean Corpuscular Hemoglobin 30.9 28.0-32.0 pg Mean Corpuscular Hemoglobin Concent 33.4 32.0-36.0 g/dL Red Cell Distribution Width 13.4 11.8-14.3 % Platelet Count 220 140-450 10^3/uL Mean Platelet Volume 9.1 6.9-10.8 fL Neutrophils (%) (Auto) 69.0 37.0-80.0 % Lymphocytes (%) (Auto) 20.3 10.0-50.0 % Monocytes (%) (Auto) 9.3 0.0-12.0 % Eosinophils (%) (Auto) 0.8 0.0-7.0 % Basophils (%) (Auto) 0.6 0.0-2.0 % Neutrophils # (Auto) 7.7 1.6-8.6 10 ^3/uL Lymphocytes # (Auto) 2.3 0.4-5.4 10 ^3/uL Monocytes # (Auto) 1.0 0-1.3 10 ^3/uL Eosinophils # (Auto) 0.1 0-0.8 10 ^3/uL Basophils # (Auto) 0.1 0-0.2 10 ^3/uL Nucleated Red Blood Cells 0.1 % Sodium Level 137 136-145 mmol/L Potassium Level 4.1 3.5-5.1 mmol/L Chloride Level 103 98-107 mmol/L Carbon Dioxide Level 24 20-31 mmol/L Anion Gap 10 5-15 Blood Urea Nitrogen 9 9-23 mg/dL Creatinine 0.98 0.550-1.02 mg/dL Glomerular Filtration Rate Calc 66 >90 mL/min BUN/Creatinine Ratio 9.2 L 10.0-20.0 Serum Glucose 116 H 74-106 mg/dL Lactic Acid Level 1.7 0.4-2.0 mmol/L Calcium Level 9.3 8.7-10.4 mg/dL Total Bilirubin 0.9 0.2-1.0 mg/dL Aspartate Amino Transferase (AST) 27 13-40 U/L Alanine Aminotransferase (ALT) 41 H 7-40 U/L Alkaline Phosphatase 104 46-116 U/L B-Type Natriuretic Peptide 10.20 0-100 pg/mL Total Protein 7.5 5.7-8.2 g/dL Albumin 4.4 3.2-4.8 g/dL SEPSIS Sepsis Screen Date sepsis recognized/suspect: Aug 28, 2025 Time Sepsis recognized/suspect: 6 Recent Procedure: No On Antibiotic Therapy: No Respiratory Rate >20: No Heart Rate >90: No Temp<36 C (96.8 F) or >38.3 C: No SBP <90 or MAP <65 mmHG: No New Acute Mental Status Change: No Is the patient on CPAP, BIPAP,: No Physician Orders Electrocardigram (08/28/25 12:56) General Counsel (08/28/25 ) Chest Portable (08/28/25 12:59) Troponin-I Hs (08/28/25 15:59) D-Dimer (08/28/25 15:19) Admit (08/28/25 15:19) Code Status (08/28/25 15:) Vital Signs .PER UNIT PROTOCOL (08/28/25 15:19) General Counsel (08/28/25:19) May Elevate Hob ____ Degrees (08/28/25 15:19) Cardiac Diet-2gna,Lofat,Lochol (08/28/25 Dinner) Aspirin Chewable Tablet (08/29/25 10:00) Lipitor 40mg Hs Hi-Intensity (08/28/25 22:00) Morphine Sulfate Injection (08/28/25 15:30) Acetaminophen Tablet (Tylenol Tablet) (08/28/25 15:30) Docusate Sodium Capsule (Colace Capsule) (08/29/25 10:00) Pulse Oximeter Check (08/28/25:19) Oxygen By Nasal Cannula (08/28/25 15:19) Complete Blood Count (08/29/25 04:00) Comprehensive Metabolic Panel (08/29/25 04:00) Lipase (08/28/25 04:00) Echo 2d Mode Cardiac Dop (08/28/25 15:19) Lovenox 100mg Sc Q12h (08/28/25 22:00) Nitroglycerin Sublingual (Ntrostat Subli (08/28/25 15:30) Ondansetron Hcl (Zofran) (08/28/25 15:30) Magnesium (08/28/25 15:19) Electrocardigram (08/28/25 15:19) Troponin-I Hs (08/28/25 15:19) Cardiac Rehabilitation - Outpa (08/28/25 ) Nitroglycerin Sublingual (Ntrostat Subli (08/28/25 15:30) Stat Ekg For Chest Pain (08/28/25 15:19) Notify Md Of Changes From Base (08/28/25 15:19) Web Master For 24 Hours (08/28/25 15:19) Emergency Dysrhythmia Protocol (08/28/25 15:19) Rhythm Strips Once Every Shift (08/28/25 15:19) Oxygen By Nasal Cannula (08/28/25 15:19) Electrocardigram (08/28/25 16:19) Electrocardigram (08/28/25 18:19) Troponin-I Hs (08/28/25 16:19) Troponin-I Hs (08/28/25 18:19) Bilat Lower Dvt (08/28/25 15:19) Vital Signs Date Time Temp Pulse Resp B/P (MAP) Pulse Ox O2 Delivery O2 Flow Rate FiO2 08/28/25 13:10 80 08/28/25 12:51 98.1 87 20 151/77 96 98.1 08/28/25 12:36 80 Laboratory Tests Test 08/28/25 13:30 Lactic Acid Level 1.7 mmol/L (0.4-2.0) White Blood Count 11.2 10^3/uL (4.4-10.8) H Medications Medications Dose Ordered Sig/Rafael Route Start Time Stop Time Status Last Admin Dose Admin Aspirin 325 mg ONCE ONCE PO 08/28/25 13:00 08/28/25 13:01 DC 08/28/25 14:01 325 MG Meclizine HCl 25 mg ONCE ONCE PO 08/28/25 13:00 08/28/25 13:01 DC 08/28/25 14:01 25 MG Ondansetron HCl 8 mg ONCE ONCE IV 08/28/25 13:00 08/28/25 13:01 DC 08/28/25 14:04 8 MG Sodium Chloride 1,000 ml @ 1,000 mls/hr Q1H ONCE IV 08/28/25 13:00 08/28/25 13:59 DC 08/28/25 14:04 1,000 MLS/HR Assessment/Plan Assessment/Plan 60-year-old female admitted for acute left-sided chest wall pain with pleuritic features and unilateral leg swelling, concerning for pulmonary embolism and cardiac ischemia, requiring telemetry monitoring, cardiology evaluation, and ad vanced imaging. acute Chest pain, pleuritic and pressure-like r/o nstemi hx of mi 2021 cxr normal ekg no stemi and trop negative ordered Aspirin Telemetry monitoring Serial troponins ordered Echocardiogram ordered Cardiology consulted fu recs ordered nitro prn chest pain Rule out pulmonary embolism D-dimer ordered Lower extremity venous ultrasound to evaluate for DVT If D-dimer positive proceed with CT angiography of chest Start therapeutic anticoagulation pending results, can deescalate lovenox if ddimer is negative acute Left lower extremity swelling (L > R) Venous Doppler ultrasound ordered Monitor extremity exam History of coronary artery disease / prior NV (2021) Preparing for coronary stent at outside hospital Continue aspirin Cardiology to guide further management acute Cough with green sputum Chest X-ray negative Monitor for infectious symptoms Consider sputum culture if symptoms worsen chronic problems Coronary artery disease with prior NV Gastritis protonix Gallstones Abdominal hernia status post repair with mesh Left breast mass status post biopsy FEN / PPx Fluids: Maintain hydration Electrolytes: Monitor CMP Nutrition: Regular diet DVT Prophylaxis: Anticoagulation pending PE/DVT workup GI Prophylaxis: PPI for gastritis Disposition Admit to telemetry for chest pain and pulmonary embolism workup. Continue cardiology evaluation, obtain echocardiogram, D-dimer, lower extremity ultrasound, and proceed with CT chest if indicated. Adjust anticoagulation based on results and monitor closely. Plan discussed with: Patient My Orders Orders - YAMILE CARR DNP Procedure Category Date Status Time D-Dimer LAB 08/28/25 Verified 15:19 Admit ADMIT 08/28/25 Verified 15:19 Code Status CODE 08/28/25 Verified 15:19 Vital Signs [facility] 08/28/25 Verified 15:19 General Counsel [facility] 08/28/25 Verified 15:19 May Elevate Hob ____ MECHE 08/28/25 Verified Degrees 15:19 Cardiac DIET 08/28/25 Verified Diet-2gna,Lofat,Lochol Dinner Aspirin Chewable PHA 08/29/25 Verified Tablet 10:00 Lipitor 40mg Hs PHA 08/28/25 Verified Hi-Intensity 22:00 Morphine Sulfate PHA 08/28/25 Verified Injection 15:30 Acetaminophen Tablet PHA 08/28/25 Verified (Tylenol Tablet) 15:30 Docusate Sodium PHA 08/29/25 Verified Capsule (Colace 10:00 Pulse Oximeter Check RT 08/28/25 Verified 15:19 Oxygen By Nasal RT 08/28/25 Verified Cannula 15:19 Complete Blood Count LAB 08/29/25 Verified 04:00 Comprehensive LAB 08/29/25 Verified Metabolic Panel 04:00 Lipase LAB 08/28/25 Verified 04:00 Echo 2d Mode Cardiac US 08/28/25 Verified DOP 15:19 Lovenox 100mg Sc Q12h PHA 08/28/25 Verified 22:00 Nitroglycerin PHA 08/28/25 Verified Sublingual (Ntrostat 15:30 Ondansetron Hcl PHA 08/28/25 Verified (Zofran) 15:30 Magnesium LAB 08/28/25 Verified 15:19 Electrocardigram EKG 08/28/25 Verified 15:19 Troponin-I Hs LAB 08/28/25 Verified 15:19 Cardiac MECHE 08/28/25 Verified Rehabilitation - Outpa Nitroglycerin PHA 08/28/25 Verified Sublingual (Ntrostat 15:30 Stat Ekg For Chest [facility] 08/28/25 Verified Pain 15:19 Notify Md Of Changes [facility] 08/28/25 Verified From Base 15:19 Web Master For [facility] 08/28/25 Verified 24 Hours 15:19 Emergency Dysrhythmia [facility] 08/28/25 Verified Protocol 15:19 Rhythm Strips Once [facility] 08/28/25 Verified Every Shift 15:19 Oxygen By Nasal RT 08/28/25 Verified Cannula 15:19 Electrocardigram EKG 08/28/25 Verified 16:19 Electrocardigram EKG 08/28/25 Verified 18:19 Troponin-I Hs LAB 08/28/25 Verified 16:19 Troponin-I Hs LAB 08/28/25 Verified 18:19 Bilat Lower Dvt US 08/28/25 Verified 15:19 Date of Service: Aug 28, 2025 Billing Provider: YAMILE CARR DNP Common Visit Codes: [id number] INP/OBS CARE (HIGH) YAMILE CARR DNP Aug 28, 2025 15:28
[2025-08-28] MEDS ORDERED: NITROGLYCERIN 0.4 MG SL TAB SL PRN (15:30)
--- NOTE | 2025-08-28 16:04 | DVH ---
PROCEDURE: US BiLat Lower DVT Study Date and Requested Time: 08/28/2025 03:35 PM History: eval for dvt and lower ext swelling COMPARISON: None TECHNIQUE: Multiple high resolution barrios-scale images with and without compression obtained of the bilateral lower extremity veins, including the common femoral vein, deep femoral vein, proximal mid and distal superficial femoral vein, and popliteal vein. Additional limited images of the greater saphenous vein also obtained. Augmentation performed as indicated. Color and spectral doppler flow images obtained as indicated. FINDINGS: No visible intraluminal venous thrombus. No evidence of incompressibility or abnormal color or spectral Doppler flow visualized in the bilateral lower extremity veins including, the common femoral vein, deep femoral vein, proximal mid and distal superficial femoral vein, and popliteal vein. Greater saphenous vein grossly unremarkable. IMPRESSION: No sonographic evidence of bilateral lower extremity deep venous thrombosis.
[2025-08-28] MEDS: ACETAMINOPHEN 325 MG TAB PO PRN (16:59)
[2025-08-28 17:00] VITALS: BP 91/68; PULSE 72; RESP 20; TEMP 98.9; O2SAT 91
[2025-08-28 17:23] VITALS: BP 91/68; PULSE 79; RESP 19; TEMP 98.9; O2SAT 91
[2025-08-28] MEDS: NITROGLYCERIN 0.4 MG SL TAB SL PRN (19:52)
[2025-08-28 20:00] VITALS: PULSE 70; PULSE 76; RESP 16; O2SAT 93
[2025-08-28 21:00] VITALS: BP 101/60; PULSE 70; RESP 18; TEMP 98.8; O2SAT 93
[2025-08-28] MEDS: ATORVASTATIN 20 MG TAB PO SCH (22:17)
[2025-08-28] MEDS: ENOXAPARIN SOD 100 MG/1 ML SYRINGE SC SCH (22:18)
[2025-08-29] VITALS (8 sets, daily range): BP systolic 109–153; BP diastolic 62–88; PULSE 60–105; RESP 16–18; TEMP 97.3–98.8; O2SAT 90–96
[2025-08-29] MEDS: HYDROcodone-ACET 5/325MG TAB PO PRN (01:03)
[2025-08-29] MEDS: MORPHINE SULFATE 4 MG/ML SYR/VIAL IV PRN ×2 (06:54→16:54)
[2025-08-29 07:08] LABS: Hematocrit 42.3 % (36.0-46.0); Hemoglobin 14.3 g/dL (12.2-16.2); Mean Corpuscular Hemoglobin 31.9 pg (28.0-32.0); Mean Corpuscular Volume 94.0 fL (80.0-100.0); Nucleated Red Blood Cells % 0.1 %
[2025-08-29 07:25] LABS: Alanine Aminotransferase 32 U/L (7-40); Alkaline Phosphatase 83 U/L (46-116); Anion Gap 9 (5-15); BUN/Creatinine Ratio 11.8 (10.0-20.0); Blood Urea Nitrogen 13 mg/dL (9-23); Carbon Dioxide 26 mmol/L (20-31); Chloride 105 mmol/L (98-107); Potassium 4.2 mmol/L (3.5-5.1); Sodium 140 mmol/L (136-145); Total Protein 6.4 g/dL (5.7-8.2)
[2025-08-29 07:26] LABS: Albumin 3.7 g/dL (3.2-4.8)
[2025-08-29 07:27] LABS: Bilirubin, Total 0.8 mg/dL (0.2-1.0)
[2025-08-29 07:31] LABS: Calcium 8.5 mg/dL (8.7-10.4); Glucose 119 mg/dL (74-106)
[2025-08-29] MEDS: DOCUSATE SOD 100 MG CAP PO SCH (09:01)
--- NOTE | 2025-08-29 12:21 | ECG ---
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
--- NOTE | 2025-08-29 13:17 | DVHPN2 ---
Subjective some chest pain Reviewed: H&P Changes from previous H/P or p: No Changes Eyes: No Pain, No Vision change, No Conjunctivae inflammation, No Eyelid inflammation, No Other, No Redness ENT: No Ear pain, No Ear discharge, No Nose pain, No Nose discharge, No Nose congestion, No Mouth pain, No Mouth swelling, No Throat pain, No Throat swelling, No Other Cardiovascular: Chest Pain; No Palpitations, No Orthopnea, No Paroxysmal Noc. Dyspnea, No Edema, No Lt Headedness, No Other Respiratory: No Cough, No Dry; Shortness of breath, SOB with excertion; No Wheezing, No Hemoptysis, No Pleuritic Pain, No Sputum, No Other Gastrointestinal: No Nausea, No Vomiting, No Abdominal Pain, No Diarrhea, No Constipation, No Melena, No Hematochezia, No Other Genitourinary: No Dysuria, No Frequency, No Incontinence, No Hematuria, No Retention, No Other Musculoskeletal: No other, No neck pain, No shoulder pain, No arm pain, No back pain, No hand pain, No leg pain, No foot pain Skin: No Rash, No Lesions, No Jaundice, No Bruising, No Other Objective Vitals Vital Signs Date Time Temp Pulse Resp B/P (MAP) Pulse Ox O2 Delivery O2 Flow Rate FiO2 08/29/25 08:49 98.8 60 17 131/62 (85) 94 98.8 08/29/25 08:08 Room Air* 0 21 Intake/Output Intake and Output 08/29/25 07:00 Intake Total 580 ml Balance 580 ml Intake Oral 580 ml # Voids 2 General Appearance: Alert, Oriented X3 HEENT: Atraumatic Cardiovascular: Regular rate, Normal S2 Abdomen: Normal bowel sounds Medications Current Medications Medications Dose Ordered Sig/Rafael Route Start Time Stop Time Status Last Admin Dose Admin Aspirin 81 mg DAILY PO 08/29/25 10:00 08/29/25 09:02 81 MG Atorvastatin Calcium 40 mg HS PO 08/28/25 22:00 08/28/25 22:17 40 MG Morphine Sulfate 2 mg Q30MP PRN IV 08/28/25 15:30 08/29/25 06:54 2 MG Acetaminophen 325 mg Q4HP PRN PO 08/28/25 15:30 08/28/25 16:59 325 MG Docusate Sodium 100 mg DAILY PO 08/29/25 10:00 08/29/25 09:01 100 MG Enoxaparin Sodium 100 mg Q12HR SC 08/28/25 22:00 08/29/25 09:02 100 MG Nitroglycerin 0.4 mg Q5MINP PRN SL 08/28/25 15:30 08/28/25 19:52 0.4 MG Ondansetron HCl 4 mg Q4HP PRN IV 08/28/25 15:30 Acetaminophen/ Hydrocodone Bitart 1 tab Q6HPRN PRN PO 08/29/25 01:00 08/29/25 08:29 1 TAB Laboratory Results Laboratory Tests 08/29/25 06:32 Chemistry Test 08/28/25 13:30 08/29/25 06:32 Albumin 4.4 g/dL (3.2-4.8) 3.7 g/dL (3.2-4.8) Calcium Level 9.3 mg/dL (8.7-10.4) 8.5 mg/dL (8.7-10.4) L Magnesium Level 2.3 mg/dL (1.6-2.6) Total Protein 7.5 g/dL (5.7-8.2) 6.4 g/dL (5.7-8.2) Coagulation Test 08/28/25 16:44 D-Dimer, Quantitative 0.63 mg/L FEU (0.0-0.49) H Lipid panel Test 08/28/25 13:30 Lipase 27 U/L (12-53) Cardiac Markers Test 08/28/25 13:30 B-Type Natriuretic Peptide 10.20 pg/mL (0-100) LFT Test 08/28/25 13:30 08/29/25 06:32 Alanine Aminotransferase (ALT) 41 U/L (7-40) H 32 U/L (7-40) Alkaline Phosphatase 104 U/L (46-116) 83 U/L (46-116) Aspartate Amino Transferase (AST) 27 U/L (13-40) 23 U/L (13-40) Total Bilirubin 0.9 mg/dL (0.2-1.0) 0.8 mg/dL (0.2-1.0) Assessment/Plan Assessment/Plan 60-year-old female admitted for acute left-sided chest wall pain with pleuritic features and unilateral leg swelling, concerning for pulmonary embolism and cardiac ischemia, requiring telemetry monitoring, cardiology evaluation, and advanced imaging. acute Chest pain, pleuritic and pressure-like r/o nstemi hx of mi 2021 cxr normal ekg no stemi and trop negative ordered Aspirin Telemetry monitoring Serial troponins ordered Echocardiogram ordered Cardiology consulted fu recs ordered nitro prn chest pain Rule out pulmonary embolism D-dimer ordered Lower extremity venous ultrasound to evaluate for DVT If D-dimer positive proceed with CT angiography of chest Start therapeutic anticoagulation pending results, can deescalate lovenox if ddimer is negative acute Left lower extremity swelling (L > R) Venous Doppler ultrasound ordered Monitor extremity exam History of coronary artery disease / prior [place] (2021) Preparing for coronary stent at outside hospital Continue aspirin Cardiology to guide further management acute Cough with green sputum Chest X-ray negative Monitor for infectious symptoms Consider sputum culture if symptoms worsen chronic problems Coronary artery disease with prior [place] Gastritis protonix Gallstones Abdominal hernia status post repair with mesh Left breast mass status post biopsy Plan discussed with: Patient Date of Service: Aug 29, 2025 Billing Provider: ADY CADENA MD Common Visit Codes: [id number] INP/OBS CARE(HIGH) ADY CADENA MD Aug 29, 2025 13:17
[2025-08-29] MEDS ORDERED: MORPHINE SULFATE INJ 2 MG/ml SYRG IV PRN (16:00)
[2025-08-30] VITALS (8 sets, daily range): BP systolic 109–149; BP diastolic 64–87; PULSE 71–98; RESP 16–20; TEMP 97.6–99.8; O2SAT 90–99
--- NOTE | 2025-08-30 01:09 | DVHSR ---
APPROVED REPORT EXAM: LIMITED Two-dimensional and M-mode echocardiogram with Doppler and color Doppler. Blood Pressure: 131/62 mmHg INDICATION Chest Pain RISK FACTORS Obesity: Height: 5' 7", Weight: 275 DIMENSIONS LVDd 4.6 (3.8-5.7cm) LA (2D) 3.5 (1.9-4.0cm) Aortic Root 3.4 (2.0-3.7cm) LVDs 3.3 (2.5-4.0cm) LA (MM) (1.9-4.0cm) Aortic Cusp Exc 2.0 (1.5-2.0cm) EF (%) 55.0 (55-70%) Rt. Atrium 4.2 (1.9-4.0cm) Asc. Aorta cm IVSd 1.2 (0.7-1.1cm) RV (D) (1.8-2.4cm) PWd 1.3 (0.7-1.1cm) Mitral Valve Mitral Mitral Stenosis E wave 0.60m/s MV Mean GR. mmHg A wave 0.70m/s MV Peak GR. mmHg E/A ratio 0.9 2D MVA cm2 Aortic Valve Aortic Valve Aortic Stenosis V1 1.10m/s AO Mean GR. 4mmHg V2 1.20m/s AO Peak GR. 7mmHg LVOT Diameter 2.3 (1.8-2.4cm) Doppler ESEQUIEL 3.81cm2 Other Information Quality : LimitedTechnically Limited Rhythm : Technically limited study due to body habitus, patient states that probe touching her is causing her tremendous amounts of pain, patient stated that no pressure can be used, very limited test. Conclusion MILD LVH AND MILD LV DIASTOLIC DYSFUNCTION LV EF IS 60% AND IS NORMAL DYSKINESIS OF IVS MODERATELY DILATED RV NORMAL VALVES NO EFFUSION
--- NOTE | 2025-08-30 10:07 | ECG ---
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
[2025-08-30 11:13] LABS: Chloride 101 mmol/L (98-107); Potassium 3.8 mmol/L (3.5-5.1); Sodium 138 mmol/L (136-145)
[2025-08-30 11:14] LABS: Anion Gap 8 (5-15); Calcium 9.1 mg/dL (8.7-10.4); Carbon Dioxide 29 mmol/L (20-31); Hematocrit 40.9 % (36.0-46.0); Hemoglobin 14.1 g/dL (12.2-16.2); Mean Corpuscular Hemoglobin 31.6 pg (28.0-32.0); Mean Corpuscular Volume 91.9 fL (80.0-100.0); Nucleated Red Blood Cells % 0.1 %
[2025-08-30 11:19] LABS: BUN/Creatinine Ratio 13.0 (10.0-20.0); Blood Urea Nitrogen 13 mg/dL (9-23)
[2025-08-30 11:22] LABS: Cholesterol 176 mg/dL (< 200); Glucose 143 mg/dL (74-106); HDL Cholesterol 36 mg/dL (40-59); Triglycerides 179 mg/dL (< 150)
--- NOTE | 2025-08-30 12:13 | DVHINCON2 ---
Date Seen: Aug 30, 2025 Referring Physician ANTHONY Lopes Reason for Consultation Evaluate cardiac function History of Present Illness This is a 60-year-old female patient who presents to emergency room with chief complaint of chest pain. She reports that the chest pain began approximately thr ee days ago while watching television. She describes the pain as unprovoked, constant, sharp in nature, left-sided with slight radiation up on the left side of her neck. Aggravating factors include deep inhalation. She denies any alleviating factors including nitroglycerin or morphine administration. Initial twelve lead electrocardiogram reveals normal sinus rhythm without any significant ST segment changes and prolonged QTc interval. Serial troponin levels have been negative. Significant past medical history includes myocardial infarction, hypertension, dyslipidemia, left breast tumor status post biopsy six weeks ago, history of tobacco and methamphetamine use, and obesity. The patient reports undergoing a nuclear stress test in 2023 in [place] and was told that the results were abnormal. She never followed up or proceeded with a coronary angiogram. Past Medical History Past medical history reviewed. No other significant than mentioned above. Past Surgical History Umbilical hernia mesh Family History: FH: [place] (myocardial infarction) G8 FATHER, Family History Family history reviewed. 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, quit four years ago Denies any alcohol use Allergies: Coded Allergies: NO KNOWN ALLERGIES (Unverified , 08/26/24) Home Meds Active Scripts Aripiprazole (Abilify) 2 Mg Tab, 5 MG PO HS for 30 Days, #75 TAB Prov:PATTY TABARES MD 09/20/24 Sucralfate (CARAFATE SUSP) 1 Gm/10 Ml Ss, 10 ML PO QID for 30 Days, #1200 ML 3 Refills Prov:PATTY TABARES MD 09/03/24 Metoclopramide Hcl (Reglan) 5 Mg Tab, 5 MG PO Q8HPRN PRN for 10 Days, #30 TAB Prov:PATTY TABARES MD 09/03/24 Pantoprazole Sodium Sesquihydr (Protonix) 40 Mg Tab, 40 MG PO BID for 30 Days, #60 TAB Prov:PATTY TABARES MD 09/03/24 Reported Medications Lidocaine (Ztlido) 1.8 % Pad, 1 PAD TOP DAILY for 30 Days, #30 08/27/24 Rosuvastatin Calcium (Crestor) 20 Mg Tab, 1 TAB PO DAILY for 30 Days, #30 08/27/24 Aspirin (Aspirin Low Dose) 81 Mg Chw, 1 TAB PO DAILY for 30 Days, #30 08/27/24 Aripiprazole (Abilify) 2 Mg Tab, 1 TAB PO DAILY for 30 Days, #30 08/27/24 Sertraline Hcl (Sertraline Hcl) 50 Mg Tab, 1 TAB PO DAILY for 30 Days, #30 08/27/24 Metoprolol Succinate (Metoprolol Succinate Er) 25 Mg Tab, 1 TAB PO DAILY for 30 Days, #30 08/27/24 Home Meds Home medications reviewed. Current Medications Current Medications Medications (Trade) Dose Ordered Sig/Rafael Route PRN Reason Start Time Stop Time Status Last Admin Morphine Sulfate 2 mg Q3HPRN PRN IV SEVERE PAIN (7-10 PAIN SCALE) 08/29/25 16:00 08/29/25 16:46 DC Morphine Sulfate 2 mg Q3HPRN PRN IV SEVERE PAIN (7-10 PAIN SCALE) 08/29/25 17:00 08/30/25 10:28 Review of Systems Constitutional: No symptom reported Ears, Nose, & Throat: No symptom reported Eyes: No symptom reported Neurological: No symptoms reported Pulmonary/Respiratory: No symptoms reported Cardiovascular: Chest pain Gastrointestinal: No symptom reported Genitourinary: No symptom reported Musculoskeletal: No symptom reported Skin: No symptom reported Psychiatric: No symptom reported Endocrine: No symptom reported Hematologic/Lymphatic: No symptom reported Vital Signs Vital Signs Date Time Temp Pulse Resp B/P (MAP) Pulse Ox O2 Delivery O2 Flow Rate FiO2 08/30/25 10:58 77 17 92/58 08/30/25 08:44 97.9 96 97.9 08/30/25 08:05 Room Air* 0 21 Physical Exam General Appearance: Cooperative. Obese Pulmonary/Respiratory: Clear, bilateral breaths sounds. Cardiovascular/Chest: Regular rate and rhythm. Peripheral Pulses: 2+ Radial (R). 2+ Radial (L). 2+ Pedal (R). 2+ Pedal (L) Abdominal Exam: Normal bowel sounds. Ankle Exam: Negative ankle edema Lower extremities: Negative lower extremity edema Neuro/Mental Status: A/OX4, coherent. Thoughts/Psych: Normal thought pattern. Appropriate mood and affect. Good judgment and insight. Appearance: No acute distress. Skin Exam: Normal inspection. Normal color. Warm and dry. Left breast mass noted. Labs/Diagnostic Data Labs Test 08/30/25 10:45 08/29/25 06:32 08/28/25 16:44 08/28/25 13:30 Range/Units White Blood Count 7.7 4.4-10.8 10^3/uL Red Blood Count 4.45 4.0-5.20 10^6/uL Hemoglobin 14.1 12.2-16.2 g/dL Hematocrit 40.9 36.0-46.0 % Mean Corpuscular Volume 91.9 80.0-100.0 fL Mean Corpuscular Hemoglobin 31.6 28.0-32.0 pg Mean Corpuscular Hemoglobin Concent 34.4 32.0-36.0 g/dL Red Cell Distribution Width 12.9 11.8-14.3 % Platelet Count 186 140-450 10^3/uL Mean Platelet Volume 9.3 6.9-10.8 fL Neutrophils (%) (Auto) 67.8 37.0-80.0 % Lymphocytes (%) (Auto) 20.4 10.0-50.0 % Monocytes (%) (Auto) 9.6 0.0-12.0 % Eosinophils (%) (Auto) 1.5 0.0-7.0 % Basophils (%) (Auto) 0.7 0.0-2.0 % Neutrophils # (Auto) 5.2 1.6-8.6 10 ^3/uL Lymphocytes # (Auto) 1.6 0.4-5.4 10 ^3/uL Monocytes # (Auto) 0.7 0-1.3 10 ^3/uL Eosinophils # (Auto) 0.1 0-0.8 10 ^3/uL Basophils # (Auto) 0.1 0-0.2 10 ^3/uL Nucleated Red Blood Cells 0.1 % Sodium Level 138 136-145 mmol/L Potassium Level 3.8 3.5-5.1 mmol/L Chloride Level 101 98-107 mmol/L Carbon Dioxide Level 29 20-31 mmol/L Anion Gap 8 5-15 Blood Urea Nitrogen 13 9-23 mg/dL Creatinine 1.00 0.550-1.02 mg/dL Glomerular Filtration Rate Calc 64 >90 mL/min BUN/Creatinine Ratio 13.0 10.0-20.0 Serum Glucose 143 H 74-106 mg/dL Hemoglobin A1c 6.0 H <5.7 % A1C Calcium Level 9.1 8.7-10.4 mg/dL Triglycerides Level 179 H < 150 mg/dL Cholesterol Level 176 < 200 mg/dL LDL Cholesterol 122 H < 100 mg/dL HDL Cholesterol 36 L 40-59 mg/dL Thyroid Stimulating Hormone (TSH) 2.65 0.55-4.78 uIU/mL Total Bilirubin 0.8 0.2-1.0 mg/dL Aspartate Amino Transferase (AST) 23 13-40 U/L Alanine Aminotransferase (ALT) 32 7-40 U/L Alkaline Phosphatase 83 46-116 U/L Total Protein 6.4 5.7-8.2 g/dL Albumin 3.7 3.2-4.8 g/dL D-Dimer, Quantitative 0.63 H 0.0-0.49 mg/L FEU Troponin I High Sensitivity 3 L </=34 ng/L Lactic Acid Level 1.7 0.4-2.0 mmol/L Magnesium Level 2.3 1.6-2.6 mg/dL B-Type Natriuretic Peptide 10.20 0-100 pg/mL Lipase 27 12-53 U/L Assessment Chest pain, rule out coronary ischemia History myocardial infarction Hypertension Dyslipidemia Ruled out pulmonary embolism 4.1cm masslike lesion in left breast Left breast mass/tumor status post biopsy six weeks ago History of tobacco use History of methamphetamine use Obesity Plan/Recommendation We will continue with the following plan/recommendations (Dr. Allen): * Transthoracic echocardiogram reveals an EF of 60% * Chest pain protocol * HEART score: 3 points * Single antiplatelet therapy and lipid-lowering agent * Blood pressure control * Close cardiac surveillance * Nuclear stress test The patient was seen and examined at bedside with . A chest CT angio has ruled out pulmonary embolism. Patient still experiencing chest pain at time of assessment with minimal relief from nitroglycerin or morphine administration. The patient states that she had a positive stress test in 2023 and never followed up with a color dipper. We currently do not have any physical records of this as patient reports that this happened in [place]. Per , the patient will undergo a nuclear stress test at this facility tomorrow. This plan was explained to the patient and she is agreeable to undergo stress test. Thank you for allowing us to care for this patient. Please call with any questions or concerns. Critical care time spent: 44 minutes This medical document was created using an electronic medical record system with voice recognition software and computerized dictation system. Although this document has been carefully reviewed, there might still be some phonetic and ty pographical errors. Occasional wrong-word or ``sound-alike substitutions may have occurred due to the inherent limitations of voice recognition software. These areas are purely typographical due to imperfections of the software programs and do not reflect any compromise in the patient's medical care. Please read the chart carefully and recognize, using context, where these sub stitutions have occurred. Plan discussed with: Patient NYHA Physical activity limitations: NA Date of Service: Aug 30, 2025 Billing Provider: ALEXIA DANIEL Cardiology Common Codes: [id number] INP/OBS CARE (High) Cardiology Consultation Codes: [id number] CONSULT <45MIN ALEXIA DANIEL Aug 30, 2025 12:13
[2025-08-30] MEDS ORDERED: IOHEXOL 350 MG/ML 100ML IJ ONE (12:51)
--- NOTE | 2025-08-30 15:51 | DVH ---
CTA Chest with intravenous contrast INDICATION: chest pain COMPARISON: XY CHEST PORTABLE on DOS: 08/28/25 TECHNIQUE: Multidetector spiral CTA of the chest was performed of the chest with intravenous contrast. PULMONARY ANGIOGRAPHY PROTOCOL was utilized using a bolus- tracking technique centered on the main pulmonary artery. Axial, coronal and sagittal multiplanar and MIP reformats were performed. Radiation Dose : 1. Chest: CTDI volume is 26.64 mGy. Dose-length product is 947.06 mGy*cm The dose indicators for CT are the volume Computed Tomography (CT) Dose Index (CTDIvol) and the Dose Length Product (DLP), and are measured in units of mGy and mGy-cm, respectively. These indicators are not patient dose, but values generated from the CT scanner acquisition factors. The report includes radiation exposure data for exposures received during this examination. FINDINGS: Pulmonary artery: No pulmonary embolism Lower neck: Normal thyroid. Lungs: Vague nodular densities in the left perihilum and left lower lobe may reflect atelectasis or mild pneumonia. Heart/Vascular Structures: Normal heart size. No pericardial effusion. Lymph Nodes: No adenopathy Pleura: No pleural effusion or significant pneumothorax. Musculoskeletal: No acute osseous abnormality. Soft tissues: 4.1 cm masslike lesion is seen in the left breast.. Upper abdomen: Hepatic steatosis. IMPRESSION: 1. No pulmonary embolism. 2. Vague nodular densities in the left perihilum and left lower lobe may reflect atelectasis or mild pneumonia. Recommend follow-up noncontrast chest CT in 4 weeks after treatment. 3. 4.1 cm masslike lesion is seen in the left breast. Recommend further evaluation with diagnostic mammogram and ultrasound.
--- NOTE | 2025-08-30 16:01 | DVHPN2 ---
Subjective some chest pain Reviewed: H&P Changes from previous H/P or p: No Changes Eyes: No Pain, No Vision change, No Conjunctivae inflammation, No Eyelid inflammation, No Other, No Redness ENT: No Ear pain, No Ear discharge, No Nose pain, No Nose discharge, No Nose congestion, No Mouth pain, No Mouth swelling, No Throat pain, No Throat swelling, No Other Cardiovascular: Chest Pain; No Palpitations, No Orthopnea, No Paroxysmal Noc. Dyspnea, No Edema, No Lt Headedness, No Other Respiratory: No Cough, No Dry; Shortness of breath, SOB with excertion; No Wheezing, No Hemoptysis, No Pleuritic Pain, No Sputum, No Other Gastrointestinal: No Nausea, No Vomiting, No Abdominal Pain, No Diarrhea, No Constipation, No Melena, No Hematochezia, No Other Genitourinary: No Dysuria, No Frequency, No Incontinence, No Hematuria, No Retention, No Other Musculoskeletal: No other, No neck pain, No shoulder pain, No arm pain, No back pain, No hand pain, No leg pain, No foot pain Skin: No Rash, No Lesions, No Jaundice, No Bruising, No Other Objective Vitals Vital Signs Date Time Temp Pulse Resp B/P (MAP) Pulse Ox O2 Delivery O2 Flow Rate FiO2 08/30/25 13:28 98.0 71 16 122/64 (83) 97 98.0 08/30/25 08:05 Room Air* 0 21 Intake/Output Intake and Output 08/30/25 05:00 Intake Total 1400 ml Balance 1400 ml Intake Oral 1400 ml # Voids 9 General Appearance: Alert, Oriented X3 HEENT: Atraumatic Cardiovascular: Regular rate, Normal S2 Abdomen: Normal bowel sounds Medications Current Medications Medications Dose Ordered Sig/Rafael Route Start Time Stop Time Status Last Admin Dose Admin Aspirin 81 mg DAILY PO 08/29/25 10:00 08/30/25 08:20 81 MG Atorvastatin Calcium 40 mg HS PO 08/28/25 22:00 08/29/25 21:55 40 MG Morphine Sulfate 2 mg Q30MP PRN IV 08/28/25 15:30 08/29/25 06:54 2 MG Acetaminophen 325 mg Q4HP PRN PO 08/28/25 15:30 08/30/25 01:15 325 MG Docusate Sodium 100 mg DAILY PO 08/29/25 10:00 08/30/25 08:19 100 MG Enoxaparin Sodium 100 mg Q12HR SC 08/28/25 22:00 08/30/25 08:22 100 MG Nitroglycerin 0.4 mg Q5MINP PRN SL 08/28/25 15:30 08/28/25 19:52 0.4 MG Ondansetron HCl 4 mg Q4HP PRN IV 08/28/25 15:30 Acetaminophen/ Hydrocodone Bitart 1 tab Q6HPRN PRN PO 08/29/25 01:00 08/30/25 14:30 1 TAB Morphine Sulfate 2 mg Q3HPRN PRN IV 08/29/25 17:00 08/30/25 10:28 2 MG Laboratory Results Laboratory Tests 08/30/25 10:45 Chemistry Test 08/30/25 10:45 Calcium Level 9.1 mg/dL (8.7-10.4) Lipid panel Test 08/30/25 10:45 Cholesterol Level 176 mg/dL (< 200) HDL Cholesterol 36 mg/dL (40-59) L Triglycerides Level 179 mg/dL (< 150) H HgA1c, TSH Test 08/30/25 10:45 Hemoglobin A1c 6.0 % A1C (<5.7) H Thyroid Stimulating Hormone (TSH) 2.65 uIU/mL (0.55-4.78) Assessment/Plan Assessment/Plan 60-year-old female admitted for acute left-sided chest wall pain with pleuritic features and unilateral leg swelling, concerning for pulmonary embolism and cardiac ischemia, requiring telemetry monitoring, cardiology evaluation, and advanced imaging. acute Chest pain, pleuritic and pressure-like r/o nstemi hx of mi 2021 cxr normal ekg no stemi and trop negative Echo reviewed and no changes Aspirin statin cardiology on consult Rule out pulmonary embolism D-dimer ordered Lower extremity venous ultrasound to evaluate for DVT If D-dimer positive proceed with CT angiography of chest CT angio negative for PE acute Left lower extremity swelling (L > R) Venous Doppler ultrasound with no DVT Monitor extremity exam History of coronary artery disease / prior [place] (2021) Preparing for coronary stent at outside hospital Continue aspirin Cardiology to guide further management acute Cough with green sputum Chest X-ray negative Monitor for infectious symptoms Consider sputum culture if symptoms worsen chronic problems Coronary artery disease with prior [place] Gastritis protonix Gallstones Abdominal hernia status post repair with mesh Left breast mass status post biopsy Plan discussed with: Patient My Orders Orders - ADY CADENA MD Procedure Category Date Status Time Ct Angio Chest CT 08/30/25 Resulted Contrast 10:59 Date of Service: Aug 30, 2025 Billing Provider: ADY CADENA MD Common Visit Codes: [id number] INP/OBS CARE(HIGH) ADY CADENA MD Aug 30, 2025 16:01
[2025-08-30] MEDS: ONDANSETRON HCL 4 MG/2 ML VIAL IV PRN (17:02)
--- NOTE | 2025-08-30 19:04 | DVHINCON2 ---
Date Seen: Aug 30, 2025 Referring Physician ANTHONY Lopes Reason for Consultation Evaluate cardiac function History of Present Illness This is a 60-year-old female with a past medical history of myocardial infarction, hypertension, dyslipidemia, left breast tumor status post biopsy six weeks ago, history of tobacco and methamphetamine use, and obesity who presents to emergency room with chief complaint of chest pain she reports that the chest pain began approximately three days ago while watching television. She describes the pain as unprovoked, constant, sharp in nature, left-sided with slight radiation up on the left side of her neck. Aggravating factors include deep inhalation. She denies any alleviating factors including nitroglycerin or morphine administration. Initial twelve lead electrocardiogram reveals normal sinus rhythm without any significant ST segment changes and prolonged QTc interval. Serial troponin levels have been negative. The patient reports undergoing a nuclear stress test in 2023 in [place] and was told that the results were abnormal. She never followed up or proceeded with a coronary angiogram. Patient was admitted to the hospital. I am asked to consult on this patient. Past Medical History Past medical history reviewed. No other significant than mentioned above. Past Surgical History Umbilical hernia mesh Family History: FH: [place] (myocardial infarction) G8 FATHER, Allergies: Coded Allergies: NO KNOWN ALLERGIES (Unverified , 08/26/24) Home Meds Active Scripts Aripiprazole (Abilify) 2 Mg Tab, 5 MG PO HS for 30 Days, #75 TAB Prov:PATTY TABARES MD 09/20/24 Sucralfate (CARAFATE SUSP) 1 Gm/10 Ml Ss, 10 ML PO QID for 30 Days, #1200 ML 3 Refills Prov:PATTY TABARES MD 09/03/24 Metoclopramide Hcl (Reglan) 5 Mg Tab, 5 MG PO Q8HPRN PRN for 10 Days, #30 TAB Prov:PATTY TABARES MD 09/03/24 Pantoprazole Sodium Sesquihydr (Protonix) 40 Mg Tab, 40 MG PO BID for 30 Days, #60 TAB Prov:PATTY TABARES MD 09/03/24 Reported Medications Lidocaine (Ztlido) 1.8 % Pad, 1 PAD TOP DAILY for 30 Days, #30 08/27/24 Rosuvastatin Calcium (Crestor) 20 Mg Tab, 1 TAB PO DAILY for 30 Days, #30 08/27/24 Aspirin (Aspirin Low Dose) 81 Mg Chw, 1 TAB PO DAILY for 30 Days, #30 08/27/24 Aripiprazole (Abilify) 2 Mg Tab, 1 TAB PO DAILY for 30 Days, #30 08/27/24 Sertraline Hcl (Sertraline Hcl) 50 Mg Tab, 1 TAB PO DAILY for 30 Days, #30 08/27/24 Metoprolol Succinate (Metoprolol Succinate Er) 25 Mg Tab, 1 TAB PO DAILY for 30 Days, #30 08/27/24 Current Medications Current Medications Medications (Trade) Dose Ordered Sig/Rafael Route PRN Reason Start Time Stop Time Status Last Admin Morphine Sulfate 2 mg Q3HPRN PRN IV SEVERE PAIN (7-10 PAIN SCALE) 08/29/25 17:00 08/30/25 10:28 Review of Systems Constitutional: No symptom reported Ears, Nose, & Throat: No symptom reported Eyes: No symptom reported Neurological: No symptoms reported Pulmonary/Respiratory: No symptoms reported Cardiovascular: Chest pain Gastrointestinal: No symptom reported Genitourinary: No symptom reported Musculoskeletal: No symptom reported Skin: No symptom reported Psychiatric: No symptom reported Endocrine: No symptom reported Hematologic/Lymphatic: No symptom reported Vital Signs Vital Signs Date Time Temp Pulse Resp B/P (MAP) Pulse Ox O2 Delivery O2 Flow Rate FiO2 08/30/25 16:37 98.0 73 16 131/72 (91) 96 98.0 08/30/25 08:05 Room Air* 0 21 Physical Exam GENERAL: Alert and oriented x 3. No acute distress. Obese. EYES: PERRL, EOMI. Anicteric. HENT: Moist mucous membranes. LUNGS: Clear to auscultation bilaterally. CARDIOVASCULAR: Regular rate and rhythm. ABDOMEN: Soft, nontender and nondistended. EXTREMITIES: No edema. NEUROLOGIC: No focal neurological deficits. SKIN: Warm, dry. Labs/Diagnostic Data Labs Test 08/30/25 10:45 08/29/25 06:32 08/28/25 16:44 08/28/25 13:30 Range/Units White Blood Count 7.7 4.4-10.8 10^3/uL Red Blood Count 4.45 4.0-5.20 10^6/uL Hemoglobin 14.1 12.2-16.2 g/dL Hematocrit 40.9 36.0-46.0 % Mean Corpuscular Volume 91.9 80.0-100.0 fL Mean Corpuscular Hemoglobin 31.6 28.0-32.0 pg Mean Corpuscular Hemoglobin Concent 34.4 32.0-36.0 g/dL Red Cell Distribution Width 12.9 11.8-14.3 % Platelet Count 186 140-450 10^3/uL Mean Platelet Volume 9.3 6.9-10.8 fL Neutrophils (%) (Auto) 67.8 37.0-80.0 % Lymphocytes (%) (Auto) 20.4 10.0-50.0 % Monocytes (%) (Auto) 9.6 0.0-12.0 % Eosinophils (%) (Auto) 1.5 0.0-7.0 % Basophils (%) (Auto) 0.7 0.0-2.0 % Neutrophils # (Auto) 5.2 1.6-8.6 10 ^3/uL Lymphocytes # (Auto) 1.6 0.4-5.4 10 ^3/uL Monocytes # (Auto) 0.7 0-1.3 10 ^3/uL Eosinophils # (Auto) 0.1 0-0.8 10 ^3/uL Basophils # (Auto) 0.1 0-0.2 10 ^3/uL Nucleated Red Blood Cells 0.1 % Sodium Level 138 136-145 mmol/L Potassium Level 3.8 3.5-5.1 mmol/L Chloride Level 101 98-107 mmol/L Carbon Dioxide Level 29 20-31 mmol/L Anion Gap 8 5-15 Blood Urea Nitrogen 13 9-23 mg/dL Creatinine 1.00 0.550-1.02 mg/dL Glomerular Filtration Rate Calc 64 >90 mL/min BUN/Creatinine Ratio 13.0 10.0-20.0 Serum Glucose 143 H 74-106 mg/dL Hemoglobin A1c 6.0 H <5.7 % A1C Calcium Level 9.1 8.7-10.4 mg/dL Triglycerides Level 179 H < 150 mg/dL Cholesterol Level 176 < 200 mg/dL LDL Cholesterol 122 H < 100 mg/dL HDL Cholesterol 36 L 40-59 mg/dL Thyroid Stimulating Hormone (TSH) 2.65 0.55-4.78 uIU/mL Total Bilirubin 0.8 0.2-1.0 mg/dL Aspartate Amino Transferase (AST) 23 13-40 U/L Alanine Aminotransferase (ALT) 32 7-40 U/L Alkaline Phosphatase 83 46-116 U/L Total Protein 6.4 5.7-8.2 g/dL Albumin 3.7 3.2-4.8 g/dL D-Dimer, Quantitative 0.63 H 0.0-0.49 mg/L FEU Troponin I High Sensitivity 3 L </=34 ng/L Lactic Acid Level 1.7 0.4-2.0 mmol/L Magnesium Level 2.3 1.6-2.6 mg/dL B-Type Natriuretic Peptide 10.20 0-100 pg/mL Lipase 27 12-53 U/L Assessment Chest pain, rule out coronary ischemia. History myocardial infarction. Hypertension. Dyslipidemia. Left breast tumor status post biopsy six weeks ago. History of tobacco use. History of methamphetamine use. Obesity. Plan/Recommendation I agree with your ongoing assessment and care of plan. Patient has been seen by Marylu Mantilla NP on my behalf, her and I discussed the plan with the patient. Transthoracic echocardiogram reveals an EF of 60%. Chest pain protocol. HEART score: 3 points. Single antiplatelet therapy and lipid-lowering agent. Blood pressure control. Close cardiac surveillance. Additional plan as per the hospital course. Plan discussed with: Patient NYHA Physical activity limitations: NA Date of Service: Aug 30, 2025 Billing Provider: CLINT DEL RIO MD Cardiology Common Codes: [id number] INP/OBS CARE (High) Cardiology Consultation Codes: [id number] CONSULT <45MIN CLINT DEL RIO MD Aug 30, 2025 16:56
[2025-08-30 20:49] LABS: Amphetamine Screen, Urine Neg (NEGATIVE); Barbiturate Scree,Urine Neg (NEGATIVE); Benzodiazephine Screen, Urine Neg (NEGATIVE); Cannabinoid Screen, Urine Neg (NEGATIVE); Cocaine Screen, Urine Neg (NEGATIVE); Opiate Scree,Urine Pos (NEGATIVE); Phencyclidine Screen, Urine Neg (NEGATIVE)
[2025-08-30] MEDS: MELATONIN 5 MG TAB PO ONE (22:15)
[2025-08-31 05:00] VITALS: BP 121/65; PULSE 71; RESP 17; TEMP 97.8; O2SAT 90
[2025-08-31 08:00] VITALS: PULSE 74
[2025-08-31 09:00] VITALS: BP 110/69; PULSE 73; RESP 18; TEMP 99.1; O2SAT 90
[2025-08-31] MEDS: REGADENOSON 0.4 MG/5 ML SYRG IV ONE ×2 (09:29)
[2025-08-31 13:01] VITALS: BP 116/75; PULSE 75; RESP 17; TEMP 98.6; O2SAT 94
--- NOTE | 2025-08-31 13:08 | DVHSR ---
APPROVED REPORT Exam: Nuclear Stress Test BMI: 0 Stress Test Details HR Max Heart Rate (APMHR): 159.872053 bpm Target HR (85% APMHR): 135.543532 bpm BP ECG Stress ECG Conclusion lvef 64% normal perfusion scan no severe ischemia NM EXAM: Myocardial Perfusion REST/STRESS Imaging Protocol: Rest Tc-99m/Stress Tc-99m 1 day Resting Data Rest SPECT myocardial perfusion imaging was performed in supine position 60 minutes following the intravenous injection of 10.9 mCi of Tc-99m Sestamibi. Time of rest injection: 08:00 Date: 08/31/2025 Time of rest imagin:00 Date: 08/31/2025 Administration Route: IV Administration Site: Left Arm Pharmacologic Stress Pharmacologic stress test was performed by injecting Regadenoson 0.4 mg IV push followed by the intravenous injection of 32.1 mCi of Tc-99m Sestamibi. Time of stress injection: 09:30 Date: 08/31/2025 Time of stress imagin:30 Date: 08/31/2025 Administration Route: IV Administration Site: Left Arm Gated Stress SPECT was performed 60 minutes after stress injection. The images were gated to evaluate regional wall motion and calculate left ventricular ejection fraction. Stress only was performed in the Supine position. Nuclear Conclusion Nuclear Findings: negative for ischemia lvef 64% normal perfusion scan no severe ischemia
--- NOTE | 2025-08-31 14:41 | DVHPN2 ---
Consult Progress Note Date Seen: Aug 31, 2025 Subjective Review of Systems: CVS:Normal, RESPIRATORY:Normal, MSK:Abnormal, NEURO:Normal Other Systems: C/o chest discomfort at tumor site Objective vital signs Vital Sign Date Time Temp Pulse Resp B/P (MAP) Pulse Ox O2 Delivery O2 Flow Rate FiO2 08/31/25 13:01 98.6 75 17 116/75 (89) 94 98.6 08/31/25 08:00 Room Air* 0 21 Total Intake and Output 08/30/25 08/30/25 08/31/25 15:00 23:00 07:00 Intake Total 800 ml 1100 ml Balance 800 ml 1100 ml medications Current Medications Medications Dose Ordered Sig/Rafael Route Start Time Stop Time Status Last Admin Dose Admin Aspirin 81 mg DAILY PO 08/29/25 10:00 08/31/25 10:04 81 MG Atorvastatin Calcium 40 mg HS PO 08/28/25 22:00 08/30/25 22:15 40 MG Morphine Sulfate 2 mg Q30MP PRN IV 08/28/25 15:30 08/31/25 10:25 2 MG Acetaminophen 325 mg Q4HP PRN PO 08/28/25 15:30 08/30/25 01:15 325 MG Docusate Sodium 100 mg DAILY PO 08/29/25 10:00 08/31/25 10:04 100 MG Enoxaparin Sodium 100 mg Q12HR SC 08/28/25 22:00 08/31/25 10:04 100 MG Nitroglycerin 0.4 mg Q5MINP PRN SL 08/28/25 15:30 08/28/25 19:52 0.4 MG Ondansetron HCl 4 mg Q4HP PRN IV 08/28/25 15:30 08/30/25 17:02 4 MG Acetaminophen/ Hydrocodone Bitart 1 tab Q6HPRN PRN PO 08/29/25 01:00 08/30/25 14:30 1 TAB Morphine Sulfate 2 mg Q3HPRN PRN IV 08/29/25 17:00 08/31/25 01:20 2 MG Examination: LUNGS:Normal, CVS:Normal, NEURO:Normal laboratory and microbiology Laboratory Tests 08/30/25 10:45 Test 08/30/25 10:45 Range/Units Serum Glucose 143 H 74-106 mg/dL Problem List/Assessment/Plan Problem List/Assessment/Plan Chest pain, coronary ischemia ruled out Pulmonary embolism ruled out History myocardial infarction 4.1cm masslike lesion in left breast biopsied 6 weeks ago Hypertension Dyslipidemia History of tobacco/methamphetamine use Obesity Plan/Recommendation (Dr. Allen) * Transthoracic echocardiogram reveals an EF of 60% * Nuclear stress test, negative for ischemia * Single antiplatelet therapy and lipid-lowering agent * Blood pressure control * Close cardiac surveillance There is no further cardiac work-up indicated at this time. Kindly call with any questions or concerns. Thank you for allowing us to care for this patient. This medical document was created using an electronic medical record system with voice recognition software and computerized dictation system. Although this document has been carefully reviewed, there might still be some phonetic and typographical errors. Occasional wrong-word or ``sound-alike substitutions may have occurred due to the inherent limitations of voice recognition software. These areas are purely typographical due to imperfections of the software programs and do not reflect any compromise in the patient's medical care. Please read the chart carefully and recognize, using context, where these substitutions have occurred. Plan discussed with: Patient, Other Date of Service: Aug 31, 2025 Billing Provider: KRISTI OLIVEIRA Cardiology Common Codes: [id number] [facility](High KRISTI OLIVEIRA Aug 31, 2025 14:41
--- NOTE | 2025-08-31 14:55 | DVHDS2 ---
Discharge Summary Date of Admission Aug 28, 2025 at 15:51 Date of Discharge: Aug 31, 2025 Labs/Diagnostic Data: Laboratory Results Test 08/30/25 20:17 08/30/25 10:45 08/29/25 06:32 08/28/25 16:44 Urine Opiates Screen Pos (NEGATIVE) Urine Fentanyl Screen Neg (NEGATIVE) Urine Barbiturates Screen Neg (NEGATIVE) Urine Phencyclidine Screen Neg (NEGATIVE) Urine Amphetamines Screen Neg (NEGATIVE) Urine Benzodiazepines Screen Neg (NEGATIVE) Urine Cocaine Screen Neg (NEGATIVE) Urine Cannabinoids Screen Neg (NEGATIVE) White Blood Count 7.7 10^3/uL (4.4-10.8) Red Blood Count 4.45 10^6/uL (4.0-5.20) Hemoglobin 14.1 g/dL (12.2-16.2) Hematocrit 40.9 % (36.0-46.0) Mean Corpuscular Volume 91.9 fL (80.0-100.0) Mean Corpuscular Hemoglobin 31.6 pg (28.0-32.0) Mean Corpuscular Hemoglobin Concent 34.4 g/dL (32.0-36.0) Red Cell Distribution Width 12.9 % (11.8-14.3) Platelet Count 186 10^3/uL (140-450) Mean Platelet Volume 9.3 fL (6.9-10.8) Neutrophils (%) (Auto) 67.8 % (37.0-80.0) Lymphocytes (%) (Auto) 20.4 % (10.0-50.0) Monocytes (%) (Auto) 9.6 % (0.0-12.0) Eosinophils (%) (Auto) 1.5 % (0.0-7.0) Basophils (%) (Auto) 0.7 % (0.0-2.0) Neutrophils # (Auto) 5.2 10 ^3/uL (1.6-8.6) Lymphocytes # (Auto) 1.6 10 ^3/uL (0.4-5.4) Monocytes # (Auto) 0.7 10 ^3/uL (0-1.3) Eosinophils # (Auto) 0.1 10 ^3/uL (0-0.8) Basophils # (Auto) 0.1 10 ^3/uL (0-0.2) Nucleated Red Blood Cells 0.1 % Sodium Level 138 mmol/L (136-145) Potassium Level 3.8 mmol/L (3.5-5.1) Chloride Level 101 mmol/L (98-107) Carbon Dioxide Level 29 mmol/L (20-31) Anion Gap 8 (5-15) Blood Urea Nitrogen 13 mg/dL (9-23) Creatinine 1.00 mg/dL (0.550-1.02) Glomerular Filtration Rate Calc 64 mL/min (>90) BUN/Creatinine Ratio 13.0 (10.0-20.0) Serum Glucose 143 mg/dL (74-106) Hemoglobin A1c 6.0 % A1C (<5.7) Calcium Level 9.1 mg/dL (8.7-10.4) Triglycerides Level 179 mg/dL (< 150) Cholesterol Level 176 mg/dL (< 200) LDL Cholesterol 122 mg/dL (< 100) HDL Cholesterol 36 mg/dL (40-59) Thyroid Stimulating Hormone (TSH) 2.65 uIU/mL (0.55-4.78) Total Bilirubin 0.8 mg/dL (0.2-1.0) Aspartate Amino Transferase (AST) 23 U/L (13-40) Alanine Aminotransferase (ALT) 32 U/L (7-40) Alkaline Phosphatase 83 U/L (46-116) Total Protein 6.4 g/dL (5.7-8.2) Albumin 3.7 g/dL (3.2-4.8) D-Dimer, Quantitative 0.63 mg/L FEU (0.0-0.49) Troponin I High Sensitivity 3 ng/L (</=34) Test 08/28/25 13:30 Lactic Acid Level 1.7 mmol/L (0.4-2.0) Magnesium Level 2.3 mg/dL (1.6-2.6) B-Type Natriuretic Peptide 10.20 pg/mL (0-100) Lipase 27 U/L (12-53) Other Laboratory Tests 08/30/25 10:45 Brief Hx & Hospital Course: 60-year-old female with past medical history significant for myocardial infarction in 2021, gastritis, gallstones, abdominal hernia status post surgical repair with mesh, and a left breast tumor status post biopsy (results pending) presents with left chest wall pain for the past two days. Patient describes the pain as a pressure-like and sharp pain, constant in nature, with no alleviating or aggravating factors. She reports worsening pain with deep inspiration and an associated cough producing green-colored sputum, without hemoptysis. She also reports left leg swelling greater than the right. She states she is currently preparing for a cardiac stent placement at [facility] per pt. She received aspirin in the ED, which helped improve her chest pain symptoms. She denies syncope but reports pleuritic discomfort. while in ED evaluation included administration of aspirin, Zofran, and magnesium. Laboratory studies showed WBC 11.2, lactate 1.7, troponin negative, and BNP negative. CMP otherwise unremarkable. Chest X-ray unremarkable. Given pleuritic chest pain, unilateral leg swelling, and cardiac history, cardiology was consulted. Plan includes evaluation for DVT and pulmonary embolism, cardiac workup, and telemetry monitoring. Patient will be admitted for further evaluation and management. All workup negative, no PE, No DVT, Stress test negative No further cardiac workup Condition at Discharge: Good Final Diagnosis/Problems List chest pain due to costocondritis Coronary artery disease with prior CO Gastritis protonix Gallstones Abdominal hernia status post repair with mesh Left breast mass status post biopsy Discharge Disposition: Home Discharge Instruct/Medications Diet: Regular Activity: No Restrictions, As Tolerated Follow Up/Referral: PCP in 7 days Medications: MAR Scheduled Aripiprazole (Abilify), 1 TAB PO DAILY, (Reported) Aripiprazole (Abilify), 5 MG PO HS Aspirin (Aspirin Low Dose), 1 TAB PO DAILY, (Reported) Lidocaine (Ztlido), 1 PAD TOP DAILY, (Reported) Metoprolol Succinate (Metoprolol Succinate Er), 1 TAB PO DAILY, (Reported) Pantoprazole Sodium Sesquihydr (Protonix), 40 MG PO BID Rosuvastatin Calcium (Crestor), 1 TAB PO DAILY, (Reported) Sertraline Hcl (Sertraline Hcl), 1 TAB PO DAILY, (Reported) Sucralfate (Carafate Susp), 10 ML PO QID Scheduled PRN Metoclopramide Hcl (Reglan), 5 MG PO Q8HPRN PRN Discharge Statement: "Patient was advised to return to the ER or call 911 if any headaches, dizziness, shortness of breath, chest pain, abdominal pain, bleeding, fevers, or worsening of medical condition. Patient was counseled about treatment plan, medications, possible side effects, patientverbalized understanding. All questions were answered to the best of my ability. This discharge took greater then 30 minutes in planning, reviewing documentation, counseling the patient, and discussing with other team members." ASSESSMENT ASSESSMENT Assessment chest pain due to costocondritis Date of Service: Aug 31, 2025 Billing Provider: ADY CADENA MD Common Visit Codes: [id number]/OBS DISCH DAY >30min ADY CADENA MD Aug 31, 2025 14:55
[2025-08-31 15:46] VITALS: BP 99/48; TEMP 37
--- NOTE | 2025-09-01 00:05 | DVHPN2 ---
Consult Progress Note Date Seen: Aug 31, 2025 Subjective Other Systems: Patient was seen and evaluated in follow up. Patient is c/o chest discomfort at tumor site. Telemetry reviewed. Objective vital signs Vital Sign Date Time Temp Pulse Resp B/P (MAP) Pulse Ox O2 Delivery O2 Flow Rate FiO2 08/31/25 15:46 37.0 08/31/25 13:01 75 17 116/75 (89) 94 08/31/25 08:00 Room Air* 0 21 Examination: GENERAL:Normal, HEENT:Normal, NECK:Normal, LUNGS:Normal, CVS:Normal, ABDOMEN:Normal, SKIN:Normal laboratory and microbiology Laboratory Tests 08/30/25 10:45 Test 08/30/25 10:45 Range/Units Serum Glucose 143 H 74-106 mg/dL Problem List/Assessment/Plan Problem List/Assessment/Plan Problem List Chest pain, coronary ischemia ruled out. Pulmonary embolism ruled out. History myocardial infarction. 4.1cm masslike lesion in left breast biopsied 6 weeks ago. Hypertension. Dyslipidemia. History of tobacco/methamphetamine use. Obesity. Plan/Recommendation Continued all current supportive medical care. Patient has been seen by Arabella Boyce NP on my behalf. We have discussed the plan with the patient. Transthoracic echocardiogram reveals an EF of 60%. Nuclear stress test, negative for ischemia. Single antiplatelet therapy and lipid-lowering agent. Blood pressure control. Close cardiac surveillance. Additional plan as per the hospital course. Plan discussed with: Patient Date of Service: Aug 31, 2025 Billing Provider: CLINT DEL RIO MD Cardiology Common Codes: [id number] HOSP CARE(High CLINT DEL RIO MD Sep 01, 2025 00:05
== END 2025-08-31 17:05 | disposition home or self-care (01) | DRG 203 ==
LOC: EDBD 12:35 → EDUNIT# 12:35 → ER 12:35 → OVERFLOW 15:51 → TELE-EAST 17:23
PROVIDERS: ADMIT Hospitalist; ATTEND Hospitalist
DX: M94.0 Chondrocostal junction syndrome [Tietze] (principal); D49.3 Neoplasm of unspecified behavior of breast; I10 Essential (primary) hypertension; E66.9 Obesity, unspecified; E78.5 Hyperlipidemia, unspecified; I25.10 Atherosclerotic heart disease of native coronary artery without angina pectoris; K29.70 Gastritis, unspecified, without bleeding; K80.20 Calculus of gallbladder without cholecystitis without obstruction; I25.2 Old myocardial infarction; Z95.5 Presence of coronary angioplasty implant and graft; Z82.49 Family history of ischemic heart disease and other diseases of the circulatory system; Z87.891 Personal history of nicotine dependence; Z79.899 Other long term (current) drug therapy; Z68.41 Body mass index [BMI] 40.0-44.9, adult
CPT/HCPCS: 36415; 71045; 71275; 78452; 80048; 80053; 80061; 80307; 83036; 83605; 83690; 83735; 83880; 84443; 84484; 85025; 85379; 93005; 93017; 93306; 93970; 96374; G0378; J2405